=== PATIENT | male | born 1930 | race Caucasian/White ===

== ENCOUNTER → 2017-09-14 | Outpatient (CLI) | payer MEDICARE | END | disposition home or self-care (01) | LOC: PMGWOUND 12:04 | DX: E11.621 Type 2 diabetes mellitus with foot ulcer (principal); L97.524 Non-pressure chronic ulcer of other part of left foot with necrosis of bone; E11.52 Type 2 diabetes mellitus with diabetic peripheral angiopathy with gangrene; I96 Gangrene, not elsewhere classified; E11.22 Type 2 diabetes mellitus with diabetic chronic kidney disease; I13.0 Hypertensive heart and chronic kidney disease with heart failure and stage 1 through stage 4 chronic kidney disease, or unspecified chronic kidney disease; N18.3 Chronic kidney disease, stage 3 (moderate); I50.9 Heart failure, unspecified; E78.5 Hyperlipidemia, unspecified; E03.9 Hypothyroidism, unspecified | CPT/HCPCS: 99214 ==

== ENCOUNTER → 2017-10-20 | Outpatient (CLI) | payer MEDICARE | END | disposition home or self-care (01) | LOC: ECHO 10:03 | DX: J90 Pleural effusion, not elsewhere classified (principal); I34.0 Nonrheumatic mitral (valve) insufficiency; I13.0 Hypertensive heart and chronic kidney disease with heart failure and stage 1 through stage 4 chronic kidney disease, or unspecified chronic kidney disease; E11.22 Type 2 diabetes mellitus with diabetic chronic kidney disease; I50.9 Heart failure, unspecified; N18.3 Chronic kidney disease, stage 3 (moderate); E78.5 Hyperlipidemia, unspecified; E03.9 Hypothyroidism, unspecified; I25.10 Atherosclerotic heart disease of native coronary artery without angina pectoris | CPT/HCPCS: 93306 ==

== ENCOUNTER 2017-11-23 10:00 | Inpatient (IN) | payer MEDICARE ==
[~2017-11-23] VITALS: Ht 165.1 cm; Wt 64.4 kg
[~2017-11-23 10:00] MED LIST: ASPI325T8 PO; CARV25TA2 PO; LISI2.5T PO; LOSA25TA5 PO; METF500T9 PO; MULT-658 PO
[2017-11-23] MEDS ORDERED: IV NORMAL SALINE 1000ML BAG 1,000 ML IV SCH ×2 (10:16→11:38)
--- NOTE | 2017-11-23 10:25 | PHYS DOC ---
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 According to EMS the patient was found on the floor today by his family. It is unclear have wound up on the floor. The patient is normally alert and oriented but appears confused at this time. He denies any pain. He is noted to be hypotensive upon arrival. He denies any headache and there is no obvious signs of head trauma. 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 Available notes from the patient's recent hospitalization of been reviewed. There are no alleviating or exacerbating factors to his symptoms. History is limited by the patient's confusion, although he is oriented to person and place. Review of Systems Review of Systems Constitutional: Denies fever or chills [] Eyes: Denies change in visual acuity, redness, or eye pain [] HENT: Denies nasal congestion or sore throat [] Respiratory: Denies cough or shortness of breath [] Cardiovascular: Denies chest pain or shortness of breath. [] GI: Denies abdominal pain, nausea, vomiting, bloody stools or diarrhea [] : Denies dysuria or hematuria [] Musculoskeletal: Denies back pain or joint pain [] Integument: Denies rash or skin lesions [] Neurologic: Denies headache, focal weakness or sensory changes [] Endocrine: Denies polyuria or polydipsia [] All other systems were reviewed and found to be within normal limits, except as documented in this note. Current Medications Current Medications Current Medications Medications (Trade) Dose Ordered Sig/Christiano Start Time Stop Time Status Last Admin Dose Admin Ceftriaxone Sodium 50 ml @ 100 mls/hr 1X ONCE 11/23/17 11:45 11/23/17 12:14 UNV Piperacillin Sod/ Tazobactam Sod 3.375 gm/Sodium Chloride 50 ml @ 100 mls/hr 1X ONCE 11/23/17 12:00 11/23/17 12:29 11/23/17 12:04 100 MLS/HR Sodium Chloride 1,000 ml @ 2,040 mls/hr Q30M 11/23/17 11:38 11/23/17 12:38 11/23/17 11:48 2,040 MLS/HR Vancomycin HCl 250 ml @ 250 mls/hr 1X ONCE 11/23/17 11:45 11/23/17 12:44 Allergies Allergies Allergies Coded Allergies Type Severity Reaction Last Updated Verified No Known Drug Allergies 10/04/17 No Physical Exam Physical Exam PHYSICAL EXAM: CONSTITUTIONAL: Well developed, well nourished HEAD: normocephalic, atraumatic EENT: PERRL, EOMI. Conjunctivae normal color, sclerae non-icteric; moist mucous membranes. NECK: Supple, non-tender; no meningismus. LUNGS: Lungs CTA, breathing even and unlabored. Normal air movement. HEART: Regular rate and rhythm, no murmur CHEST: No deformity; non-tender ABDOMEN: The abdomen is soft, and non-tender, no masses or bruits. EXTREM: There is a skin tear on the left elbow without any bony tenderness to palpation. There is a wound VAC on the left foot, with amputation of the left great toe. There are weak but palpable posterior tibial pulses. The extremities demonstrate Normal ROM; no deformity, no calf tenderness. There is no pedal edema. SKIN: No rash; no diaphoresis NEURO: Alert; normal speech, somewhat impaired cognition; CN's grossly intact; strength grossly intact without focal deficit. BACK: No CVA TTP. Current Patient Data Vital Signs Vital Signs Date Time Temp Pulse Resp B/P (MAP) Pulse Ox O2 Delivery O2 Flow Rate FiO2 11/23/17 10:00 98.9 90 20 89/46 (60) 96 Room Air 98.9 Lab Values Laboratory Tests Test 11/23/17 10:25 11/23/17 10:43 White Blood Count 6.8 x10^3/uL (4.0-11.0) Red Blood Count 3.30 x10^6/uL (4.30-5.70) L Hemoglobin 10.1 g/dL (13.0-17.5) L Hematocrit 29.7 % (39.0-53.0) L Mean Corpuscular Volume 90 fL (79-100) Mean Corpuscular Hemoglobin 31 pg (25-35) Mean Corpuscular Hemoglobin Concent 34 g/dL (31-37) Red Cell Distribution Width 17.3 % (11.5-14.5) H Platelet Count 173 x10^3/uL (140-400) Neutrophils (%) (Auto) 74 % (31-73) H Lymphocytes (%) (Auto) 14 % (24-48) L Monocytes (%) (Auto) 12 % (0-9) H Eosinophils (%) (Auto) 0 % (0-3) Basophils (%) (Auto) 0 % (0-3) Neutrophils # (Auto) 5.0 x10^3uL (1.8-7.7) Lymphocytes # (Auto) 1.0 x10^3/uL (1.0-4.8) Monocytes # (Auto) 0.8 x10^3/uL (0.0-1.1) Eosinophils # (Auto) 0.0 x10^3/uL (0.0-0.7) Basophils # (Auto) 0.0 x10^3/uL (0.0-0.2) Prothrombin Time 14.3 SEC (11.7-14.0) H Prothrombin Time INR 1.2 (0.8-1.1) H Sodium Level 131 mmol/L (136-145) L Potassium Level 4.7 mmol/L (3.5-5.1) Chloride Level 99 mmol/L (98-107) Carbon Dioxide Level 25 mmol/L (21-32) Anion Gap 7 (6-14) Blood Urea Nitrogen 54 mg/dL (8-26) H Creatinine 2.8 mg/dL (0.7-1.3) H Estimated GFR (Cockcroft-Gault) 21.5 BUN/Creatinine Ratio 19 (6-20) Glucose Level 231 mg/dL (70-99) H Lactic Acid Level 3.0 mmol/L (0.4-2.0) H Calcium Level 8.9 mg/dL (8.5-10.1) Magnesium Level 1.8 mg/dL (1.8-2.4) Total Bilirubin 0.7 mg/dL (0.2-1.0) Aspartate Amino Transferase (AST) 38 U/L (15-37) H Alanine Aminotransferase (ALT) 30 U/L (16-63) Alkaline Phosphatase 125 U/L (46-116) H Creatine Kinase 57 U/L (39-308) Creatine Kinase MB (Mass) 0.5 ng/mL (0.0-3.6) Creatine Kinase MB Relative Index % (0-4) Troponin I Quantitative 0.035 ng/mL (0.000-0.055) QP-Zrf-C-Type Natriuretic Peptide 9580 pg/mL (0-449) H Total Protein 6.2 g/dL (6.4-8.2) L Albumin 3.0 g/dL (3.4-5.0) L Albumin/Globulin Ratio 0.9 (1.0-1.7) L Lipase 292 U/L (73-393) Thyroid Stimulating Hormone (TSH) 0.255 uIU/mL (0.358-3.74) L Urine Collection Type Unknown Urine Color Cathryn Urine Clarity Cloudy Urine pH 5.0 Urine Specific [place] 1.025 Urine Protein Negative mg/dL (NEG-TRACE) Urine Glucose (UA) Negative mg/dL (NEG) Urine Ketones (Stick) Trace mg/dL (NEG) Urine Blood Negative (NEG) Urine Nitrite Negative (NEG) Urine Bilirubin Small (NEG) Urine Urobilinogen Dipstick 1.0 mg/dL (0.2 mg/dL) Urine Leukocyte Esterase Small (NEG) Urine RBC 1-2 /HPF (0-2) Urine WBC 5-10 /HPF (0-4) Urine Squamous Epithelial Cells Occ /LPF Urine Amorphous Sediment Present /HPF Urine Bacteria Few /HPF (0-FEW) Urine Mucus Marked /LPF Laboratory Tests 11/23/17 10:25 Laboratory Tests 11/23/17 10:25 EKG EKG [Ventricular paced rhythm at a rate of 76 bpm with left axis deviation and QRS widening without secondary acute ischemic ST/T changes.] Radiology/Procedures Radiology/Procedures [PROCEDURE: PORTABLE CHEST 1V PORTABLE CHEST 1V dated 11/23/2017 10:30 AM. Comparison: 10/23/2017 Clinical Indication: WEAKNESS, HYPOTENSION. Findings: Single upright portable exam performed. Heart and mediastinal contours are stable. 3 lead left subclavian pacer/AICD, unchanged. There is patchy perihilar airspace disease, new from prior study. No pleural effusion or pneumothorax. Impression: Patchy bilateral perihilar airspace disease, nonspecific. This could be related to early edema or pneumonia. ] PROCEDURE: CT HEAD WO CONTRAST CT HEAD WO CONTRAST History: Altered mental status, fall Comparison: None. Technique: Noncontrast CT imaging was performed of the head. Exposure: One or more of the following individualized dose reduction techniques were utilized for this examination: 1. Automated exposure control 2. Adjustment of the mA and/or kV according to patient size 3. Use of iterative reconstruction technique. Findings: No acute extra-axial or parenchymal hemorrhage is identified. There is no significant intra-axial mass effect, midline shift, or extra-axial fluid collection. The whitley-white differentiation of the major vascular territories is preserved. Ventricular size is within normal limits. There is [id number] generalized supratentorial atrophy. The mastoid air cells and the visualized paranasal sinuses are aerated. No acute calvarial abnormality is identified. There is atherosclerotic calcification of the carotid siphons bilaterally. nce Impression: 1. No acute intracranial abnormality is identified. 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 Course & Med Decision Making Course & Med Decision Making Pertinent Labs and Imaging studies reviewed. (See chart for details) [12:10 PM: The patient's condition remained stable. His blood pressure has improved to the 120s after IV hydration. I discussed the case with Dr. Pritchard, the patient's PCP, who will admit the patient for further evaluation. Given the patient's elevated lactic acid, and possible urine infection he might meet sepsis criteria with his hypertension. He'll be given IV fluids and antibiotics empirically. His blood pressure has responded to IV fluids.] CRITICAL CARE TIME: 45 Minutes, excluding any procedures and care of other patients. Dragon Disclaimer Dragon Disclaimer This electronic medical record was generated, in whole or in part, using a voice recognition dictation system. Departure Departure Impression: Primary Impression: Acute renal failure Additional Impressions: Dehydration UTI (urinary tract infection) Hypotension Weakness Altered mental status Disposition: 09 ADMITTED INPATIENT Admitting Physician: Susannah Pritchard Condition: IMPROVED Referrals: Neri PRITCHARD MD (PCP) Problem Qualifiers GERDA DENG MD Nov 23, 2017 10:25
--- NOTE | 2017-11-23 10:31 | EKG ---
[facility] [address] [place] [address] Test Date: 2017-11-23 Test Time: 10:06:24 Pat Name: TAMICA ALEX Department: Room: Gender: M [employer] Supervisor: : [id number] Requested By: GERDA DENG Order Number: [id number] Reading MD: Dioni Hernandez MD Measurements Intervals [place] Rate: 76 P: ND: QRS: -56 QRSD: 18 T: -73 QT: 322 QTc: 365 Interpretive Statements SR V-PACED ARTIFACT Electronically Signed On 11-23-2017 11:33:03 CDT by Dioni Hernandez MD
[2017-11-23 10:33] LABS: BASO % 0 % (0-3); EOS % 0 % (0-3); HEMATOCRIT 29.7 % (39.0-53.0); HEMOGLOBIN 10.1 g/dL (13.0-17.5); LYMPH % 14 % (24-48); MEAN CORPUSCULAR HEMOGLOBIN 31 pg (25-35); MEAN CORPUSCULAR HGB CONC 34 g/dL (31-37); MEAN CORPUSCULAR VOLUME 90 fL (79-100); MONO # 0.8 x10^3/uL (0.0-1.1); MONO % 12 % (0-9); NEUT % 74 % (31-73); PLATELET COUNT 173 x10^3/uL (140-400); RED CELL DISTRIBUTION WIDTH 17.3 % (11.5-14.5); WHITE BLOOD COUNT 6.8 x10^3/uL (4.0-11.0)
--- NOTE | 2017-11-23 10:41 | RAD ---
PORTABLE CHEST 1V dated 11/23/2017 10:30 AM. Comparison: 10/23/2017 Clinical Indication: WEAKNESS, HYPOTENSION. Findings: Single upright portable exam performed. Heart and mediastinal contours are stable. 3 lead left subclavian pacer/AICD, unchanged. There is patchy perihilar airspace disease, new from prior study. No pleural effusion or pneumothorax. Impression: Patchy bilateral perihilar airspace disease, nonspecific. This could be related to early edema or pneumonia. Electronically signed by: Rajiv Patel MD (11/23/2017 10:38 AM) [id number]
[2017-11-23 10:51] LABS: CALCIUM 8.9 mg/dL (8.5-10.1); CREATININE 2.8 mg/dL (0.7-1.3); GFR 21.5; POTASSIUM 4.7 mmol/L (3.5-5.1); PROTHROMBIN TIME PATIENT 14.3 SEC (11.7-14.0)
[2017-11-23 10:55] LABS: BILIRUBIN,URINE SMALL (NEG); CLARITY,URINE CLOUDY; COLOR,URINE AMBER; NITRITE,URINE NEGATIVE (NEG); PROTEIN,URINE NEGATIVE (NEG-TRACE)
[2017-11-23 11:03] LABS: CREATINE KINASE 57 U/L (39-308)
[2017-11-23 11:04] LABS: ALBUMIN/GLOBULIN RATIO 0.9 (1.0-1.7); MAGNESIUM 1.8 mg/dL (1.8-2.4); TOTAL BILIRUBIN 0.7 mg/dL (0.2-1.0); TOTAL PROTEIN 6.2 g/dL (6.4-8.2)
[2017-11-23 11:17] LABS: AMORPHOUS SEDIMENT,UR PRESENT /HPF; BACTERIA,URINE FEW /HPF (0-FEW); SQUAMOUS EPITHELIAL CELL,UR OCC /LPF
[2017-11-23] MEDS ORDERED: VANCOMYCIN 1GM IVPB FOR OMNI 250 ML IV ONE (11:45)
[2017-11-23] MEDS ORDERED: PIPERACILLIN/TAZOBACTAM 3.375 GM in IV NORMAL SALINE 50ML 50 ML IV ONE (12:00)
--- NOTE | 2017-11-23 12:10 | RAD ---
CT HEAD WO CONTRAST History: Altered mental status, fall Comparison: None. Technique: Noncontrast CT imaging was performed of the head. Exposure: One or more of the following individualized dose reduction techniques were utilized for this examination: 1. Automated exposure control 2. Adjustment of the mA and/or kV according to patient size 3. Use of iterative reconstruction technique. Findings: No acute extra-axial or parenchymal hemorrhage is identified. There is no significant intra-axial mass effect, midline shift, or extra-axial fluid collection. The whitley-white differentiation of the major vascular territories is preserved. Ventricular size is within normal limits. There is [id number] generalized supratentorial atrophy. The mastoid air cells and the visualized paranasal sinuses are aerated. No acute calvarial abnormality is identified. There is atherosclerotic calcification of the carotid siphons bilaterally. nce Impression: 1. No acute intracranial abnormality is identified. 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 Electronically signed by: Cricket Jalloh MD (11/23/2017 12:07 PM) [id number]
[2017-11-23 14:17] VITALS: BP 140/54
[2017-11-23 19:19] VITALS: BP 131/49
[2017-11-23] MEDS ORDERED: ASPI-630 PO (20:08)
[2017-11-23] MEDS ORDERED: LISI-334 PO (20:08)
[2017-11-23] MEDS ORDERED: GLIM4TAB2 PO (20:08)
[2017-11-23] MEDS ORDERED: TAMS0.4C2 PO (20:08)
[2017-11-23] MEDS ORDERED: FURO40TA4 PO (20:08)
[2017-11-23] MEDS ORDERED: ACET500T68 PO (20:08)
[2017-11-23 23:52] VITALS: BP 97/31
[2017-11-24 03:13] VITALS: BP_SYST 11
[2017-11-24 07:00] VITALS: BP 185/71
[2017-11-24] MEDS ORDERED: DEXTROSE 50% 25 GM / 50ML DISP.SYRIN. IV ONE ×2 (08:30→08:45)
[2017-11-24 11:00] VITALS: BP 158/67
[2017-11-24 16:39] VITALS: BP 178/62
[2017-11-24] MEDS: ACETAMINOPHEN 500 MG TABLET PO SCH (16:41)
[2017-11-24] MEDS: CARVEDILOL 12.5 MG TABLET. PO SCH (16:41)
--- NOTE | 2017-11-24 16:43 | PDOC1 ---
History and Physical Date of Admission Date of Admission 11/23/17 Identification/Chief Complaint Chief Complaint unconscious at home Source Source: Chart review, Patient History of Present Illness History of Present Illness He was released Wednesday from extended stay at [facility] for wound care , HBO, wound vac after having an amputation of his left 1st toe and distal MT but yesterday morning he was down on the floor and unresponsive, EMS summoned and sugar was 200, BP in the 80s systolic. Eval in ER suggeested ARF and sepsis and admitted with sepsis protocol. He became hypoglycemic this am with sugar of 30 despite not being placed back on his diabetes meds. He has not been eating well since admission though and was on a sulfonylurea SQUAD BOSS. He is now alert and oriented and at his baseline Past Medical History Cardiovascular: CAD, CHF, HTN, Hyperlipidemia Pulmonary: COPD Past Surgical History Past Surgical History: Pacemaker, Hernia Repair Family History Family History: Coronary Artery Disease, Hypertension Social History ALCOHOL: none Drugs: None Current Problem List Problem List Problems Medical Problems: (1) Acute renal failure Status: Acute (2) Altered mental status Status: Acute (3) Dehydration Status: Acute (4) Hypotension Status: Acute (5) UTI (urinary tract infection) Status: Acute (6) Weakness Status: Acute Current Medications Current Medications Current Medications Medications (Trade) Dose Ordered Sig/Christiano Start Time Stop Time Status Last Admin Dose Admin Acetaminophen (Tylenol) 1,000 mg Q6HRS 11/24/17 18:00 Aspirin (Children'S Aspirin) 81 mg DAILY 11/25/17 09:00 Carvedilol (Coreg) 25 mg BIDWMEALS 11/24/17 17:00 Ceftriaxone Sodium 50 ml @ 100 mls/hr 1X ONCE 11/23/17 11:45 11/23/17 12:14 UNV Dextrose (Dextrose 50%-Water Syringe) 25 gm 1X ONCE 11/24/17 08:45 11/24/17 08:50 DC 11/24/17 08:58 25 GM Losartan Potassium (Cozaar) 25 mg DAILY 11/25/17 09:00 Multivitamins (Thera M Plus) 1 tab DAILY 11/25/17 09:00 Piperacillin Sod/ Tazobactam Sod 2.25 gm/Sodium Chloride 50 ml @ 100 mls/hr Q8HRS 11/24/17 17:00 Piperacillin Sod/ Tazobactam Sod 3.375 gm/Sodium Chloride 50 ml @ 100 mls/hr 1X ONCE 11/23/17 12:00 11/23/17 12:29 DC 11/23/17 12:04 100 MLS/HR Sodium Chloride 1,000 ml @ 2,040 mls/hr Q30M 11/23/17 11:38 11/23/17 12:38 DC 11/23/17 11:48 2,040 MLS/HR Tamsulosin HCl (Flomax) 0.8 mg HS 11/24/17 21:00 Vancomycin HCl 250 ml @ 250 mls/hr 1X ONCE 11/23/17 11:45 11/23/17 12:44 Cancel Allergies Allergies Allergies Coded Allergies Type Severity Reaction Last Updated Verified No Known Drug Allergies 10/04/17 No ROS Review of System CONSTITUTIONAL: No fever or chills EYES: No recent changes SKIN: bruising CARDIOVASCULAR: No chest pain, syncope, palpitations, or edema RESPIRATORY: No SOB or cough GASTROINTESTINAL: No nausea, vomiting or abdominal pain NEUROLOGICAL: No headaches or weakness ENDOCRINE: No cold or heat intolerance GENITOURINARY: Has urinary retention, perea was discontinued last week prior to discharge MUSCULOSKELETAL: No back pain or joint pain LYMPHATICS: No enlarged lymph nodes PSYCHIATRIC: No anxiety or depression Physical Exam Physical Exam GEN.: No apparent distress. Alert and oriented. HEENT: Head is normocephalic, atraumatic NECK: Supple. LUNGS: Clear to auscultation. HEART: RRR, S1, S2 present. Peripheral pulses intact ABDOMEN: Soft, nontender. Positive bowel sounds. EXTREMITIES: Without any cyanosis. NEUROLOGIC: Normal speech, normal tone PSYCHIATRIC: Normal affect, normal mood. SKIN: wound vac on foot Vitals Vitals Vital Signs Date Time Temp Pulse Resp B/P (MAP) Pulse Ox O2 Delivery O2 Flow Rate FiO2 11/24/17 11:00 97.9 68 18 158/67 (97) 97 Room Air 97.9 Labs Labs Laboratory Tests Test 11/23/17 10:25 11/23/17 10:43 11/24/17 08:29 11/24/17 08:40 White Blood Count 6.8 x10^3/uL (4.0-11.0) Red Blood Count 3.30 x10^6/uL (4.30-5.70) Hemoglobin 10.1 g/dL (13.0-17.5) Hematocrit 29.7 % (39.0-53.0) Mean Corpuscular Volume 90 fL (79-100) Mean Corpuscular Hemoglobin 31 pg (25-35) Mean Corpuscular Hemoglobin Concent 34 g/dL (31-37) Red Cell Distribution Width 17.3 % (11.5-14.5) Platelet Count 173 x10^3/uL (140-400) Neutrophils (%) (Auto) 74 % (31-73) Lymphocytes (%) (Auto) 14 % (24-48) Monocytes (%) (Auto) 12 % (0-9) Eosinophils (%) (Auto) 0 % (0-3) Basophils (%) (Auto) 0 % (0-3) Neutrophils # (Auto) 5.0 x10^3uL (1.8-7.7) Lymphocytes # (Auto) 1.0 x10^3/uL (1.0-4.8) Monocytes # (Auto) 0.8 x10^3/uL (0.0-1.1) Eosinophils # (Auto) 0.0 x10^3/uL (0.0-0.7) Basophils # (Auto) 0.0 x10^3/uL (0.0-0.2) Prothrombin Time 14.3 SEC (11.7-14.0) Prothromb Time International Ratio 1.2 (0.8-1.1) Sodium Level 131 mmol/L (136-145) Potassium Level 4.7 mmol/L (3.5-5.1) Chloride Level 99 mmol/L (98-107) Carbon Dioxide Level 25 mmol/L (21-32) Anion Gap 7 (6-14) Blood Urea Nitrogen 54 mg/dL (8-26) Creatinine 2.8 mg/dL (0.7-1.3) Estimated GFR (Cockcroft-Gault) 21.5 BUN/Creatinine Ratio 19 (6-20) Glucose Level 231 mg/dL (70-99) Lactic Acid Level 3.0 mmol/L (0.4-2.0) Calcium Level 8.9 mg/dL (8.5-10.1) Magnesium Level 1.8 mg/dL (1.8-2.4) Total Bilirubin 0.7 mg/dL (0.2-1.0) Aspartate Amino Transf (AST/SGOT) 38 U/L (15-37) Alanine Aminotransferase (ALT/SGPT) 30 U/L (16-63) Alkaline Phosphatase 125 U/L (46-116) Creatine Kinase 57 U/L (39-308) Creatine Kinase MB (Mass) 0.5 ng/mL (0.0-3.6) Creatine Kinase MB Relative Index % (0-4) Troponin I Quantitative 0.035 ng/mL (0.000-0.055) LD-Hvh-Y-Type Natriuretic Peptide 9580 pg/mL (0-449) Total Protein 6.2 g/dL (6.4-8.2) Albumin 3.0 g/dL (3.4-5.0) Albumin/Globulin Ratio 0.9 (1.0-1.7) Lipase 292 U/L (73-393) Thyroid Stimulating Hormone (TSH) 0.255 uIU/mL (0.358-3.74) Urine Collection Type Unknown Urine Color Cathryn Urine Clarity Cloudy Urine pH 5.0 Urine Specific [place] 1.025 Urine Protein Negative mg/dL (NEG-TRACE) Urine Glucose (UA) Negative mg/dL (NEG) Urine Ketones (Stick) Trace mg/dL (NEG) Urine Blood Negative (NEG) Urine Nitrite Negative (NEG) Urine Bilirubin Small (NEG) Urine Urobilinogen Dipstick 1.0 mg/dL (0.2 mg/dL) Urine Leukocyte Esterase Small (NEG) Urine RBC 1-2 /HPF (0-2) Urine WBC 5-10 /HPF (0-4) Urine Squamous Epithelial Cells Occ /LPF Urine Amorphous Sediment Present /HPF Urine Bacteria Few /HPF (0-FEW) Urine Mucus Marked /LPF Glucose (Fingerstick) 33 mg/dL (70-99) 138 mg/dL (70-99) Test 11/24/17 12:00 Glucose (Fingerstick) 103 mg/dL (70-99) Laboratory Tests Test 11/24/17 08:29 11/24/17 08:40 11/24/17 12:00 Glucose (Fingerstick) 33 mg/dL (70-99) 138 mg/dL (70-99) 103 mg/dL (70-99) VTE Prophylaxis Ordered VTE Prophylaxis Devices: Yes VTE Pharmacological Prophylaxi: Yes Assessment/Plan Assessment/Plan encephalopathy, likely toxic from sepsis - await urine cx and cover with antibiotics, CXR suggests pneumonia hypotension ARF hypoglycemia Type 2 diabetes PAD urinary retention Neri PRITCHARD MD Nov 24, 2017 16:43
[2017-11-24] MEDS ORDERED: VANCOMYCIN 1 GM in IV NORMAL SALINE 250ML 250 ML IV ONE (16:45)
[2017-11-24] MEDS ORDERED: ALBUTEROL SULFATE 2.5 MG/3 ML NEBU. NEB PRN (17:00)
[2017-11-24] MEDS ORDERED: PIPERACILLIN/TAZOBACTAM 2.25 GM in IV NORMAL SALINE 50ML 50 ML IV SCH (17:00)
[2017-11-24] MEDS: ENOXAPARIN 30 MG/0.3 ML SYRINGE. SQ SCH (17:00)
[2017-11-24] MEDS ORDERED: VANCOMYCIN 1.5 GM in IV NORMAL SALINE 500ML BAG 500 ML IV ONE (17:30)
[2017-11-24 19:54] VITALS: BP 136/43
[2017-11-24] MEDS: LACTOBACILLUS RHAMNOSUS GG 1 CAPSULE. PO SCH (20:14)
[2017-11-24] MEDS: TAMSULOSIN 0.4 MG CAP.ER.24H. PO SCH (20:14)
[2017-11-24 23:21] VITALS: BP 144/53
[2017-11-25] MEDS: PIPERACILLIN/TAZOBACTAM 2.25 GM in IV NORMAL SALINE 50ML 50 ML IV SCH ×4 (00:17→16:17)
[2017-11-25] MEDS: ACETAMINOPHEN 500 MG TABLET PO SCH ×4 (00:18→16:16)
[2017-11-25 02:57] VITALS: BP 149/59
[2017-11-25 04:43] LABS: BASO % 0 % (0-3); EOS # 0.1 x10^3/uL (0.0-0.7); EOS % 2 % (0-3); HEMATOCRIT 25.1 % (39.0-53.0); HEMOGLOBIN 8.6 g/dL (13.0-17.5); LYMPH % 22 % (24-48); MEAN CORPUSCULAR HEMOGLOBIN 31 pg (25-35); MEAN CORPUSCULAR HGB CONC 34 g/dL (31-37); MEAN CORPUSCULAR VOLUME 89 fL (79-100); MONO # 0.4 x10^3/uL (0.0-1.1); MONO % 9 % (0-9); NEUT # 3.1 x10^3uL (1.8-7.7); NEUT % 67 % (31-73); PLATELET COUNT 141 x10^3/uL (140-400); RED BLOOD COUNT 2.81 x10^6/uL (4.30-5.70); RED CELL DISTRIBUTION WIDTH 17.5 % (11.5-14.5); WHITE BLOOD COUNT 4.6 x10^3/uL (4.0-11.0)
[2017-11-25 05:01] LABS: ALBUMIN 2.2 g/dL (3.4-5.0); CALCIUM 8.2 mg/dL (8.5-10.1); CREATININE 1.7 mg/dL (0.7-1.3); GFR 38.3; POTASSIUM 3.8 mmol/L (3.5-5.1)
[2017-11-25 05:36] LABS: ALBUMIN/GLOBULIN RATIO 0.7 (1.0-1.7); TOTAL BILIRUBIN 0.6 mg/dL (0.2-1.0); TOTAL PROTEIN 5.3 g/dL (6.4-8.2)
[2017-11-25 07:00] VITALS: BP 161/48
[2017-11-25] MEDS: LOSARTAN POTASSIUM 25 MG TABLET. PO SCH (08:35)
[2017-11-25] MEDS: LACTOBACILLUS RHAMNOSUS GG 1 CAPSULE. PO SCH ×2 (08:35→21:01)
[2017-11-25] MEDS: MULTIVITAMIN with MINERAL TABLET. PO SCH (08:35)
[2017-11-25] MEDS: ASPIRIN CHEWABLE 81 MG TABLET. PO SCH (08:35)
[2017-11-25] MEDS: CARVEDILOL 12.5 MG TABLET. PO SCH ×2 (08:35→16:16)
--- NOTE | 2017-11-25 08:38 | RAD ---
Portable chest, 11/25/2017: HISTORY: Follow-up pneumonia Comparison is made to the study from 11/23/2017. A left-sided transvenous pacing device is again noted with 3 leads extending into the heart. The heart size is normal. There is mild residual pulmonary infiltrate, primarily in the right parahilar region. No new pulmonary abnormality is seen. No significant residual pleural fluid is evident. No new abnormality is detected. IMPRESSION: 1. Mild residual right perihilar infiltrate compatible with pneumonia versus pulmonary edema. 2. No new abnormality is detected. Electronically signed by: Darin Vann MD (11/25/2017 8:35 AM) [facility]
[2017-11-25 11:00] VITALS: BP 151/51
[2017-11-25] MEDS ORDERED: DEXTROSE 50% 25 GM / 50ML DISP.SYRIN. IV PRN (12:45)
--- NOTE | 2017-11-25 12:50 | PDOC ---
PROGRESS NOTES Subjective has a cough but feels ok, up to commode, no chest pain, no GI symptoms, eating better Objective Afebrile General: A&O, NAD Heart: RRR Lungs: loose cough, no wheezing or rhonchi Abd: soft non tender Ext: no edema, wound vac on and fracture shoe on left foot WBC: 4.6 Hgb: 8.6 Vital Signs Vital Signs Date Time Temp Pulse Resp B/P (MAP) Pulse Ox O2 Delivery O2 Flow Rate FiO2 11/25/17 11:00 98.0 59 18 151/51 (84) 99 Room Air 98.0 I & O Intake and Output 11/25/17 07:00 Intake Total 400 ml Output Total 200 ml Balance 200 ml Intake Oral 400 ml Output Urine Total 200 ml # Voids 4 # Bowel Movements 1 Assessment and Plan encephalopathy, likely toxic from sepsis - resolved, await urine cx and cover with antibiotics, CXR suggests pneumonia hypotension - resolved ARF - improving, recheck CMP tomorrow hypoglycemia Type 2 diabetes - add SSI, continue to hold metformin due to renal function and glimeperide due to hypoglycemia yesterday morning PAD - continue wound vac, wound care urinary retention - perea, tamsulosin anemia - iron deficiency, resume iron supplement Neri PRITCHARD MD Nov 25, 2017 12:50
[2017-11-25] MEDS: FERROUS SULFATE 325 MG TABLET. PO SCH (13:25)
[2017-11-25 15:00] VITALS: BP 169/64
[2017-11-25] MEDS: ENOXAPARIN 30 MG/0.3 ML SYRINGE. SQ SCH (16:16)
[2017-11-25] MEDS: INSULIN LISPRO 300 UNITS/3 ML INSULN.PEN. SQ SCH (17:37)
[2017-11-25 19:16] VITALS: BP 164/71
[2017-11-25] MEDS: TAMSULOSIN 0.4 MG CAP.ER.24H. PO SCH (21:01)
[2017-11-25 23:06] VITALS: BP 173/63
[2017-11-26] MEDS: PIPERACILLIN/TAZOBACTAM 2.25 GM in IV NORMAL SALINE 50ML 50 ML IV SCH ×4 (00:56→18:16)
[2017-11-26] MEDS: ACETAMINOPHEN 500 MG TABLET PO SCH ×4 (00:56→18:15)
[2017-11-26 03:57] VITALS: BP 188/84
[2017-11-26 06:59] LABS: BASO % 1 % (0-3); EOS # 0.1 x10^3/uL (0.0-0.7); EOS % 4 % (0-3); HEMATOCRIT 25.8 % (39.0-53.0); HEMOGLOBIN 8.7 g/dL (13.0-17.5); LYMPH % 25 % (24-48); MEAN CORPUSCULAR HEMOGLOBIN 30 pg (25-35); MEAN CORPUSCULAR HGB CONC 34 g/dL (31-37); MEAN CORPUSCULAR VOLUME 89 fL (79-100); MONO # 0.4 x10^3/uL (0.0-1.1); MONO % 9 % (0-9); NEUT # 2.5 x10^3uL (1.8-7.7); NEUT % 62 % (31-73); PLATELET COUNT 165 x10^3/uL (140-400); RED BLOOD COUNT 2.89 x10^6/uL (4.30-5.70); RED CELL DISTRIBUTION WIDTH 17.4 % (11.5-14.5)
[2017-11-26 07:00] VITALS: BP 158/55
[2017-11-26 07:27] LABS: ALBUMIN 2.2 g/dL (3.4-5.0); ALBUMIN/GLOBULIN RATIO 0.7 (1.0-1.7); CALCIUM 8.3 mg/dL (8.5-10.1); CREATININE 1.5 mg/dL (0.7-1.3); TOTAL PROTEIN 5.3 g/dL (6.4-8.2)
[2017-11-26 07:28] LABS: GFR 44.3; POTASSIUM 4.2 mmol/L (3.5-5.1); TOTAL BILIRUBIN 0.7 mg/dL (0.2-1.0)
[2017-11-26] MEDS: INSULIN LISPRO 300 UNITS/3 ML INSULN.PEN. SQ SCH ×3 (08:00→17:00)
[2017-11-26] MEDS: ASPIRIN CHEWABLE 81 MG TABLET. PO SCH (09:51)
[2017-11-26] MEDS: CARVEDILOL 12.5 MG TABLET. PO SCH ×2 (09:51→18:16)
[2017-11-26] MEDS: MULTIVITAMIN with MINERAL TABLET. PO SCH (09:52)
[2017-11-26] MEDS: LOSARTAN POTASSIUM 25 MG TABLET. PO SCH (09:52)
[2017-11-26] MEDS: LACTOBACILLUS RHAMNOSUS GG 1 CAPSULE. PO SCH ×2 (09:52→21:16)
[2017-11-26] MEDS: FERROUS SULFATE 325 MG TABLET. PO SCH (09:52)
[2017-11-26 11:00] VITALS: BP 175/64
[2017-11-26 15:00] VITALS: BP 172/73
--- NOTE | 2017-11-26 17:51 | PDOC ---
PROGRESS NOTES Subjective He is feeling stronger and denies confusion, appetite good, no chest pain, no SOA, no GI pain Objective Afebrile General: NAD, A&O Heart: RRR Lungs: CTA, coughs with deep breath Abd: soft and non tender Ext: no edema, good pulses, fx shoe on left foot, wound vac off WBC: 4 Hgb: 8.7 K+: 4.2 Creat: 1.5 Vital Signs Vital Signs Date Time Temp Pulse Resp B/P (MAP) Pulse Ox O2 Delivery O2 Flow Rate FiO2 11/26/17 15:00 96.4 60 20 172/73 (106) 97 Room Air 96.4 I & O Intake and Output 11/26/17 07:00 Intake Total 800 ml Balance 800 ml Intake Oral 800 ml # Voids 8 Assessment and Plan Problems Medical Problems: (1) Acute renal failure Status: Acute (2) Altered mental status Status: Acute (3) Dehydration Status: Acute (4) Hypotension Status: Acute (5) UTI (urinary tract infection) Status: Acute (6) Weakness Status: Acute encephalopathy, likely toxic from sepsis - resolved, await urine cx and cover with antibiotics, CXR suggests pneumonia hypotension - resolved ARF -resolved hypoglycemia - resolved Type 2 diabetes - add SSI, off metformin due to renal function and glimeperide due to hypoglycemia yesterday morning PAD - off wound vac per wound care urinary retention - DC perea, bladder trial, cont tamsulosin anemia - iron deficiency, resume iron supplement Neri PRITCHARD MD Nov 26, 2017 17:51
[2017-11-26] MEDS: ENOXAPARIN 30 MG/0.3 ML SYRINGE. SQ SCH (18:15)
[2017-11-26 19:10] VITALS: BP 167/62
[2017-11-26] MEDS: TAMSULOSIN 0.4 MG CAP.ER.24H. PO SCH (21:16)
[2017-11-26 23:10] VITALS: BP 162/61
[2017-11-27] MEDS: PIPERACILLIN/TAZOBACTAM 2.25 GM in IV NORMAL SALINE 50ML 50 ML IV SCH ×3 (00:03→12:35)
[2017-11-27] MEDS: ACETAMINOPHEN 500 MG TABLET PO SCH ×3 (00:04→12:00)
[2017-11-27 03:10] VITALS: BP 177/77
[2017-11-27 07:50] VITALS: BP 173/71
[2017-11-27] MEDS: INSULIN LISPRO 300 UNITS/3 ML INSULN.PEN. SQ SCH ×3 (08:00→17:14)
[2017-11-27] MEDS: FERROUS SULFATE 325 MG TABLET. PO SCH (09:14)
[2017-11-27] MEDS: MULTIVITAMIN with MINERAL TABLET. PO SCH (09:15)
[2017-11-27] MEDS: LACTOBACILLUS RHAMNOSUS GG 1 CAPSULE. PO SCH ×2 (09:15→20:13)
[2017-11-27] MEDS: CARVEDILOL 12.5 MG TABLET. PO SCH ×2 (09:16→17:13)
[2017-11-27] MEDS: LOSARTAN POTASSIUM 25 MG TABLET. PO SCH (09:16)
[2017-11-27] MEDS: ASPIRIN CHEWABLE 81 MG TABLET. PO SCH (09:16)
[2017-11-27 11:27] VITALS: BP 164/66
[2017-11-27] MEDS ORDERED: ACETAMINOPHEN 500 MG TABLET PO PRN ×2 (14:30)
--- NOTE | 2017-11-27 14:45 | PDOC ---
PROGRESS NOTES Subjective Psa growing on urine culture but clinically he was septic from it at admission so need to adjust abx. Feels better overall, no new symptoms Objective Afebrile General: NAD, A&O Heart: RRR Lungs: CTA, cough improved Abd: soft , non distended Ext: left foot dressing dry, no edema or redness Vital Signs Vital Signs Date Time Temp Pulse Resp B/P (MAP) Pulse Ox O2 Delivery O2 Flow Rate FiO2 11/27/17 11:27 97.9 64 18 164/66 (98) 96 Room Air 97.9 I & O Intake and Output 11/27/17 07:00 Intake Total 1030 ml Output Total 450 ml Balance 580 ml Intake Oral 980 ml IV Total 50 ml Output Urine Total 450 ml # Voids 4 Assessment and Plan encephalopathy, likely toxic from sepsis - resolved, Pseudomonas aeruginosa on urine cx, change to cefepime and levaquin, CXR suggested pneumonia hypotension - resolved ARF -resolved hypoglycemia - resolved Type 2 diabetes - add SSI, off metformin due to renal function and glimepiride due to hypoglycemia PAD - off wound vac per wound care urinary retention - DCed perea, passed bladder trial, cont tamsulosin anemia - iron deficiency, resume iron supplement Neri PRITCHARD MD Nov 27, 2017 14:45
[2017-11-27 15:13] VITALS: BP 129/60
[2017-11-27] MEDS: CEFEPIME HCL IV Push 1 GM VIAL. IVP SCH ×2 (16:15→23:00)
[2017-11-27] MEDS: ENOXAPARIN 30 MG/0.3 ML SYRINGE. SQ SCH (17:13)
[2017-11-27 19:40] VITALS: BP 136/89
[2017-11-27] MEDS: TAMSULOSIN 0.4 MG CAP.ER.24H. PO SCH (20:14)
[2017-11-27] MEDS ORDERED: CEFEPIME HCL 1 GM in IV DEXTROSE 5% 50 ML IV SCH (22:00)
[2017-11-27 23:17] VITALS: BP 122/65
[2017-11-28 03:45] VITALS: BP 175/71
[2017-11-28 04:19] LABS: BASO % 0 % (0-3); EOS # 0.1 x10^3/uL (0.0-0.7); EOS % 3 % (0-3); HEMATOCRIT 27.4 % (39.0-53.0); HEMOGLOBIN 9.4 g/dL (13.0-17.5); LYMPH # 1.4 x10^3/uL (1.0-4.8); LYMPH % 31 % (24-48); MEAN CORPUSCULAR HEMOGLOBIN 31 pg (25-35); MEAN CORPUSCULAR HGB CONC 34 g/dL (31-37); MEAN CORPUSCULAR VOLUME 89 fL (79-100); MONO # 0.5 x10^3/uL (0.0-1.1); MONO % 10 % (0-9); NEUT # 2.5 x10^3uL (1.8-7.7); NEUT % 56 % (31-73); PLATELET COUNT 167 x10^3/uL (140-400); RED BLOOD COUNT 3.08 x10^6/uL (4.30-5.70); RED CELL DISTRIBUTION WIDTH 17.4 % (11.5-14.5); WHITE BLOOD COUNT 4.4 x10^3/uL (4.0-11.0)
[2017-11-28 04:43] LABS: CALCIUM 8.3 mg/dL (8.5-10.1); CREATININE 1.4 mg/dL (0.7-1.3); GFR 47.9
[2017-11-28 07:00] VITALS: BP 154/57
[2017-11-28] MEDS: INSULIN LISPRO 300 UNITS/3 ML INSULN.PEN. SQ SCH ×3 (08:31→16:54)
[2017-11-28] MEDS: CARVEDILOL 12.5 MG TABLET. PO SCH ×2 (08:32→16:35)
[2017-11-28] MEDS: FERROUS SULFATE 325 MG TABLET. PO SCH (08:32)
[2017-11-28] MEDS: LACTOBACILLUS RHAMNOSUS GG 1 CAPSULE. PO SCH ×2 (08:33→20:53)
[2017-11-28] MEDS: ASPIRIN CHEWABLE 81 MG TABLET. PO SCH (08:33)
[2017-11-28] MEDS: LOSARTAN POTASSIUM 25 MG TABLET. PO SCH (08:33)
[2017-11-28] MEDS: MULTIVITAMIN with MINERAL TABLET. PO SCH (08:34)
[2017-11-28] MEDS: CEFEPIME HCL IV Push 1 GM VIAL. IVP SCH ×2 (08:35→20:54)
[2017-11-28 11:00] VITALS: BP 154/59
[2017-11-28 15:00] VITALS: BP 150/57
--- NOTE | 2017-11-28 15:44 | PDOC ---
PROGRESS NOTES Subjective He wants to go home but still on IV abx for Psa in urine, getting stronger, up and about more. Family working on living situation Objective Afebrile General: NAD Heart: RRR Lungs: CTA Abd: ND/NT Ext: no C/C/E, left foot dressing intact Vital Signs Vital Signs Date Time Temp Pulse Resp B/P (MAP) Pulse Ox O2 Delivery O2 Flow Rate FiO2 11/28/17 15:00 97.8 69 18 150/57 (88) 99 Room Air 97.8 I & O Intake and Output 11/28/17 07:00 Intake Total 270 ml Output Total 1750 ml Balance -1480 ml Intake Oral 200 ml IV Total 70 ml Output Urine Total 1750 ml # Bowel Movements 1 Assessment and Plan encephalopathy, toxic from sepsis - resolved, Pseudomonas aeruginosa on urine cx, change to cefepime and levaquin, CXR suggesting pneumonia, will repeat it tomorrow hypotension - resolved ARF -resolved hypoglycemia - resolved Type 2 diabetes - add SSI, resume metformin as renal function improved, off glimepiride due to hypoglycemia PAD - off wound vac per wound care urinary retention - DCed perea, passed bladder trial, cont tamsulosin anemia - iron deficiency, resume iron supplement Neri PRITCHARD MD Nov 28, 2017 15:44
[2017-11-28] MEDS: ENOXAPARIN 30 MG/0.3 ML SYRINGE. SQ SCH (16:36)
[2017-11-28 19:00] VITALS: BP 176/61
[2017-11-28] MEDS: TAMSULOSIN 0.4 MG CAP.ER.24H. PO SCH (20:53)
[2017-11-28 23:03] VITALS: BP 182/67
[2017-11-29 03:03] VITALS: BP 155/61
[2017-11-29 07:00] VITALS: BP 165/70
[2017-11-29] MEDS: FERROUS SULFATE 325 MG TABLET. PO SCH (08:00)
[2017-11-29] MEDS: LACTOBACILLUS RHAMNOSUS GG 1 CAPSULE. PO SCH ×2 (08:00→20:06)
[2017-11-29] MEDS: metFORMIN 500 MG TABLET PO SCH (08:01)
[2017-11-29] MEDS: LOSARTAN POTASSIUM 25 MG TABLET. PO SCH (08:01)
[2017-11-29] MEDS: ASPIRIN CHEWABLE 81 MG TABLET. PO SCH (08:01)
[2017-11-29] MEDS: MULTIVITAMIN with MINERAL TABLET. PO SCH (08:01)
[2017-11-29] MEDS: CEFEPIME HCL IV Push 1 GM VIAL. IVP SCH ×2 (08:02→20:19)
[2017-11-29] MEDS: CARVEDILOL 12.5 MG TABLET. PO SCH ×2 (08:02→17:12)
[2017-11-29] MEDS: INSULIN LISPRO 300 UNITS/3 ML INSULN.PEN. SQ SCH ×3 (08:09→17:16)
[2017-11-29 11:00] VITALS: BP 159/64
--- NOTE | 2017-11-29 12:29 | PDOC ---
PROGRESS NOTES Subjective CXR report pending (looks clear to me), still with some coughing, no other new symptoms, urinating well, eating but sugar elevated this am Objective Afebrile General: A&O, pleasant, NAD Heart: RRR Lungs: CTA but clears throat and has cough Abd: soft, non distended Ext: no edema, ambulating with left foot in walking shoe Vital Signs Vital Signs Date Time Temp Pulse Resp B/P (MAP) Pulse Ox O2 Delivery O2 Flow Rate FiO2 11/29/17 11:00 96.6 61 18 159/64 (95) 99 Room Air 96.6 I & O Intake and Output 11/29/17 07:00 Intake Total 1700 ml Output Total 800 ml Balance 900 ml Intake Oral 1700 ml Output Urine Total 800 ml # Voids 1 Assessment and Plan encephalopathy, toxic from sepsis - resolved, Pseudomonas aeruginosa on urine cx, change to cefepime and levaquin, CXR consistent with pneumonia, appears to have now resolved hypotension - resolved ARF -resolved hypoglycemia - resolved Type 2 diabetes - hyperglycemic this am, on SSI, resumed metformin as renal function improved, off glimepiride due to hypoglycemia at admission but may need to resume a low dose of it PAD - off wound vac per wound care urinary retention - DCed perea, passed bladder trial, cont tamsulosin anemia - iron deficiency, resumed iron supplement and improving Neri PRITCHARD MD Nov 29, 2017 12:29
--- NOTE | 2017-11-29 14:33 | RAD ---
CHEST PA LATERAL Clinical indications: HYPOTENSION COMPARISON: November 25, 2017. Findings: Small bilateral pleural effusions are evident. No acute lung infiltrate or pulmonary edema or lung mass or pneumothorax is seen. The heart size, pulmonary vasculature, mediastinum and both erich are stable. The osseous structures are intact. Impression: Small bilateral pleural effusions. Electronically signed by: Chance Brunson MD (11/29/2017 2:30 PM) [facility]
[2017-11-29 15:00] VITALS: BP 162/67
[2017-11-29] MEDS: ENOXAPARIN 30 MG/0.3 ML SYRINGE. SQ SCH (17:12)
[2017-11-29 19:58] VITALS: BP_SYST 147
[2017-11-29] MEDS: TAMSULOSIN 0.4 MG CAP.ER.24H. PO SCH (20:06)
[2017-11-29 23:19] VITALS: BP 139/54
[2017-11-30 03:54] VITALS: BP 170/54
[2017-11-30 07:00] VITALS: BP 159/56
[2017-11-30] MEDS: LOSARTAN POTASSIUM 25 MG TABLET. PO SCH (07:51)
[2017-11-30] MEDS: FERROUS SULFATE 325 MG TABLET. PO SCH (07:52)
[2017-11-30] MEDS: LACTOBACILLUS RHAMNOSUS GG 1 CAPSULE. PO SCH (07:52)
[2017-11-30] MEDS: metFORMIN 500 MG TABLET PO SCH (07:53)
[2017-11-30] MEDS: MULTIVITAMIN with MINERAL TABLET. PO SCH (07:54)
[2017-11-30] MEDS: CARVEDILOL 12.5 MG TABLET. PO SCH ×2 (07:54→17:36)
[2017-11-30] MEDS: CEFEPIME HCL IV Push 1 GM VIAL. IVP SCH (07:55)
[2017-11-30] MEDS: ASPIRIN CHEWABLE 81 MG TABLET. PO SCH (07:56)
[2017-11-30] MEDS: INSULIN LISPRO 300 UNITS/3 ML INSULN.PEN. SQ SCH ×3 (07:59→17:50)
[2017-11-30 11:00] VITALS: BP 140/72
[2017-11-30 15:00] VITALS: BP 172/64
[2017-11-30] MEDS ORDERED: FERR325T72 PO (16:42)
[2017-11-30] MEDS: ENOXAPARIN 30 MG/0.3 ML SYRINGE. SQ SCH (17:00)
[2017-11-30 17:36] VITALS: BP 172/64
--- NOTE | 2017-11-30 18:01 | PDOC3 ---
Discharge Summary [facility] Date of Admission: Nov 23, 2017 Discharge Date: Nov 30, 2017 Admitting Diagnosis acute renal failure, toxic encephalopathy from sepsis, (pneumonia, UTI) Final Diagnosis Problems Medical Problems: (1) Acute renal failure Status: Acute (2) encephalopathy Status: Acute (3) Dehydration Status: Acute (4) Hypotension Status: Acute (5) UTI (urinary tract infection) Status: Acute (6) Pneumonia Status: Acute Brief Hospital Course Mr. Martell is a 86 old who presented with: encephalopathy, toxic from sepsis - resolved, Pseudomonas aeruginosa on urine cx, change to cefepime and levaquin, CXR consistent with pneumonia, resolved clinically and radiographically hypotension - resolved ARF -resolved hypoglycemia - resolved Type 2 diabetes - hyperglycemic this am, on SSI, resumed metformin as renal function improved, off glimepiride due to hypoglycemia at admission but may need to resume a low dose of it PAD - off wound vac per wound care urinary retention - DCed [place], passed bladder trial, cont tamsulosin anemia - iron deficiency, resumed iron supplement and improving Patient History: Cancer confirmed (situation) 33 FATHER (prostate cancer ) Family history: Diabetes mellitus (situation) G8 BROTHER 32 MOTHER CONDITION AT DISCHARGE: Stable Diet diabetic Scheduled Aspirin (Aspirin), 1 TAB PO DAILY, (Reported) Carvedilol (Carvedilol), 1 TAB PO BID, (Reported) Ferrous Sulfate (Feosol), 325 MG PO DAILYWBKFT Losartan Potassium (Losartan Potassium), 25 MG PO DAILY, (Reported) Metformin Hcl (Metformin Hcl Er), 500 MG PO DAILYWBKFT, (Reported) Multivits-Min/Fa/Lycopene/Lut (Centrum Silver Tablet), 1 EACH PO DAILY, ( Reported) Tamsulosin Hcl (Tamsulosin Hcl), 2 CAP PO HS, (Reported) Discontinued Medications Acetaminophen (Acetaminophen), 2 TAB PO Q6HRS, (Reported) Aspirin (Aspirin), 1 TAB PO DAILY, (Reported) Discontinued Reason: Prescription changed Furosemide (Furosemide), 1 TAB PO DAILY, (Reported) Glimepiride (Glimepiride), 1 TAB PO DAILY, (Reported) Lisinopril (Lisinopril), 1 TAB PO DAILY, (Reported) Discontinued Reason: Prescription changed Lisinopril (Lisinopril), 1 TAB PO DAILY, (Reported) Follow Up [facility] this week, with me 1-2 weeks Neri PRITCHARD MD Nov 30, 2017 18:01
== END 2017-11-30 17:53 | disposition home or self-care (01) | DRG 871 ==
LOC: ER 10:00 → 6 SOUTH 12:30 → 5 SOUTH 11-26 08:45 → 6 SOUTH 11-26 08:55
PROVIDERS: ADMIT Family Medicine; ATTEND Family Medicine
DX: A41.9 Sepsis, unspecified organism (principal); G92 Toxic encephalopathy; J18.9 Pneumonia, unspecified organism; N17.9 Acute kidney failure, unspecified; N39.0 Urinary tract infection, site not specified; J44.0 Chronic obstructive pulmonary disease with (acute) lower respiratory infection; D50.9 Iron deficiency anemia, unspecified; E11.649 Type 2 diabetes mellitus with hypoglycemia without coma; E11.65 Type 2 diabetes mellitus with hyperglycemia; E78.5 Hyperlipidemia, unspecified; E86.0 Dehydration; E11.51 Type 2 diabetes mellitus with diabetic peripheral angiopathy without gangrene; R33.9 Retention of urine, unspecified; B96.5 Pseudomonas (aeruginosa) (mallei) (pseudomallei) as the cause of diseases classified elsewhere; I11.0 Hypertensive heart disease with heart failure; I25.10 Atherosclerotic heart disease of native coronary artery without angina pectoris; I50.9 Heart failure, unspecified; Z80.42 Family history of malignant neoplasm of prostate; Z82.49 Family history of ischemic heart disease and other diseases of the circulatory system; Z83.3 Family history of diabetes mellitus; Z89.412 Acquired absence of left great toe; Z95.0 Presence of cardiac pacemaker; Z79.82 Long term (current) use of aspirin; Z79.84 Long term (current) use of oral hypoglycemic drugs; Z79.899 Other long term (current) drug therapy
CPT/HCPCS: 36415; 51701; 70450; 71045; 71046; 80048; 80053; 81001; 82553; 82607; 82728; 82746; 82962; 83540; 83550; 83605; 83690; 83735; 83880; 84443; 84484; 85025; 85045; 85610; 87086; 87186; 93005; 96361; 96365; J0692; J1650; J1815; J1956; J2543; J3370; J7030; J7040; J7042; 97116; 97530; 97535; 99291-25

== ENCOUNTER → 2017-12-07 | Outpatient (CLI) | payer MEDICARE ==
[2017-11-30 17:36] VITALS: BP 172/64
[~2017-12-07] MED LIST changes: +ACET500T68 PO; +ASPI-630 PO; +FERR325T72 PO; +FURO40TA4 PO; +GLIM4TAB2 PO; +LISI-334 PO; +TAMS0.4C2 PO
== END | disposition home or self-care (01) ==
LOC: PMGWOUND 10:40
PROVIDERS: ATTEND Emergency Medicine Undersea and Hyperbaric Medicine
DX: E11.621 Type 2 diabetes mellitus with foot ulcer (principal); L97.524 Non-pressure chronic ulcer of other part of left foot with necrosis of bone; I70.202 Unspecified atherosclerosis of native arteries of extremities, left leg; I13.0 Hypertensive heart and chronic kidney disease with heart failure and stage 1 through stage 4 chronic kidney disease, or unspecified chronic kidney disease; E11.22 Type 2 diabetes mellitus with diabetic chronic kidney disease; N18.3 Chronic kidney disease, stage 3 (moderate); I50.22 Chronic systolic (congestive) heart failure; E11.52 Type 2 diabetes mellitus with diabetic peripheral angiopathy with gangrene; E11.65 Type 2 diabetes mellitus with hyperglycemia; I96 Gangrene, not elsewhere classified; E11.69 Type 2 diabetes mellitus with other specified complication; M86.9 Osteomyelitis, unspecified; M87.059 Idiopathic aseptic necrosis of unspecified femur; J44.9 Chronic obstructive pulmonary disease, unspecified; E78.5 Hyperlipidemia, unspecified; E03.9 Hypothyroidism, unspecified; I25.10 Atherosclerotic heart disease of native coronary artery without angina pectoris; Z79.4 Long term (current) use of insulin; Z95.0 Presence of cardiac pacemaker; Z85.46 Personal history of malignant neoplasm of prostate; Z79.82 Long term (current) use of aspirin; Z79.84 Long term (current) use of oral hypoglycemic drugs; Z79.899 Other long term (current) drug therapy
CPT/HCPCS: 99214; G0463

== ENCOUNTER → 2017-12-14 | Outpatient (CLI) | payer MEDICARE ==
[2017-11-30 17:36] VITALS: BP 172/64
== END | disposition home or self-care (01) ==
LOC: PMGWOUND 10:52
PROVIDERS: ATTEND Emergency Medicine Undersea and Hyperbaric Medicine
DX: E11.621 Type 2 diabetes mellitus with foot ulcer (principal); L97.524 Non-pressure chronic ulcer of other part of left foot with necrosis of bone; I70.202 Unspecified atherosclerosis of native arteries of extremities, left leg; I13.0 Hypertensive heart and chronic kidney disease with heart failure and stage 1 through stage 4 chronic kidney disease, or unspecified chronic kidney disease; E11.22 Type 2 diabetes mellitus with diabetic chronic kidney disease; I50.22 Chronic systolic (congestive) heart failure; N18.3 Chronic kidney disease, stage 3 (moderate); E11.649 Type 2 diabetes mellitus with hypoglycemia without coma; E11.65 Type 2 diabetes mellitus with hyperglycemia; E11.52 Type 2 diabetes mellitus with diabetic peripheral angiopathy with gangrene; I96 Gangrene, not elsewhere classified; E11.69 Type 2 diabetes mellitus with other specified complication; M86.9 Osteomyelitis, unspecified; E03.9 Hypothyroidism, unspecified; E78.5 Hyperlipidemia, unspecified; J44.9 Chronic obstructive pulmonary disease, unspecified; I25.10 Atherosclerotic heart disease of native coronary artery without angina pectoris; Z79.4 Long term (current) use of insulin; Z79.82 Long term (current) use of aspirin; Z79.84 Long term (current) use of oral hypoglycemic drugs
CPT/HCPCS: 99214; G0463

== ENCOUNTER → 2017-12-21 | Outpatient (CLI) | payer MEDICARE ==
[2017-11-30 17:36] VITALS: BP 172/64
== END | disposition home or self-care (01) ==
LOC: PMGWOUND 08:39
PROVIDERS: ATTEND Emergency Medicine Undersea and Hyperbaric Medicine
DX: E11.621 Type 2 diabetes mellitus with foot ulcer (principal); L97.524 Non-pressure chronic ulcer of other part of left foot with necrosis of bone; I70.202 Unspecified atherosclerosis of native arteries of extremities, left leg; I13.0 Hypertensive heart and chronic kidney disease with heart failure and stage 1 through stage 4 chronic kidney disease, or unspecified chronic kidney disease; E11.22 Type 2 diabetes mellitus with diabetic chronic kidney disease; N18.3 Chronic kidney disease, stage 3 (moderate); I50.9 Heart failure, unspecified; E11.52 Type 2 diabetes mellitus with diabetic peripheral angiopathy with gangrene; I96 Gangrene, not elsewhere classified; E11.69 Type 2 diabetes mellitus with other specified complication; M86.9 Osteomyelitis, unspecified; E11.65 Type 2 diabetes mellitus with hyperglycemia; E11.649 Type 2 diabetes mellitus with hypoglycemia without coma; J44.9 Chronic obstructive pulmonary disease, unspecified; E78.5 Hyperlipidemia, unspecified; E03.9 Hypothyroidism, unspecified; I25.10 Atherosclerotic heart disease of native coronary artery without angina pectoris; I42.0 Dilated cardiomyopathy; Z79.4 Long term (current) use of insulin; Z85.46 Personal history of malignant neoplasm of prostate
CPT/HCPCS: 11042

== ENCOUNTER → 2017-12-28 | Outpatient (CLI) | payer MEDICARE ==
[2017-11-30 17:36] VITALS: BP 172/64
== END | disposition home or self-care (01) ==
LOC: PMGWOUND 09:21
PROVIDERS: ATTEND Emergency Medicine Undersea and Hyperbaric Medicine
DX: E11.621 Type 2 diabetes mellitus with foot ulcer (principal); L97.524 Non-pressure chronic ulcer of other part of left foot with necrosis of bone; I70.202 Unspecified atherosclerosis of native arteries of extremities, left leg; I13.0 Hypertensive heart and chronic kidney disease with heart failure and stage 1 through stage 4 chronic kidney disease, or unspecified chronic kidney disease; E11.22 Type 2 diabetes mellitus with diabetic chronic kidney disease; N18.3 Chronic kidney disease, stage 3 (moderate); I50.22 Chronic systolic (congestive) heart failure; E11.52 Type 2 diabetes mellitus with diabetic peripheral angiopathy with gangrene; E11.69 Type 2 diabetes mellitus with other specified complication; M86.9 Osteomyelitis, unspecified; E11.649 Type 2 diabetes mellitus with hypoglycemia without coma; J44.9 Chronic obstructive pulmonary disease, unspecified; E03.9 Hypothyroidism, unspecified; E78.5 Hyperlipidemia, unspecified; I25.10 Atherosclerotic heart disease of native coronary artery without angina pectoris; Z79.4 Long term (current) use of insulin; Z85.46 Personal history of malignant neoplasm of prostate
CPT/HCPCS: 99214; G0463

== ENCOUNTER → 2018-06-07 | Outpatient (CLI) | payer MEDICARE ==
[~2018-06-07] MED LIST changes: +AMIO200T4 PO; +AMOX1TAB58 PO; +FURO20TA3 PO; -LOSA25TA5 PO; +LOSA25TA54 PO; +RIVA15TA PO
--- NOTE | 2018-06-07 13:18 | KCIC ---
Left lower extremity venous Doppler dated 06/07/2018. No comparison available. CLINICAL INDICATION: Left leg edema. FINDINGS: Grayscale, color-flow and spectral waveform analysis performed to include the deep venous system of the left lower extremity. Normal compressibility, phasicity and augmentation of flow within the common femoral vein and superficial femoral vein. There is nonocclusive thrombosis of the popliteal vein and peroneal veins of the proximal left calf. The posterior tibial vein is not well evaluated. IMPRESSION: 1. Nonocclusive deep vein thrombosis of the popliteal vein and peroneal veins of the proximal left calf. The proximal veins are patent. Electronically signed by: Rajiv Patel MD (06/07/2018 1:14 PM) [facility]
== END | disposition home or self-care (01) ==
LOC: KCIC US 12:23
PROVIDERS: ATTEND Nurse Practitioner Gerontology
DX: I82.432 Acute embolism and thrombosis of left popliteal vein (principal); I82.492 Acute embolism and thrombosis of other specified deep vein of left lower extremity
CPT/HCPCS: 93971

== ENCOUNTER 2018-06-22 18:02 | Inpatient (IN) | payer MEDICARE ==
[~2018-06-22] VITALS: Ht 167.6 cm; Wt 67.6 kg
[~2018-06-22 18:02] MED LIST changes: -AMIO200T4 PO; -AMOX1TAB58 PO; -FURO20TA3 PO; -RIVA15TA PO
[2018-06-22] MEDS ORDERED: ACETAMINOPHEN 325 MG TABLET. PO ONE (19:00)
[2018-06-22] MEDS ORDERED: IV NORMAL SALINE 1000ML BAG 1,000 ML IV ONE ×2 (19:00→19:30)
[2018-06-22 19:06] LABS: BILIRUBIN,URINE NEGATIVE (NEG); CLARITY,URINE CLEAR; COLOR,URINE YELLOW; NITRITE,URINE NEGATIVE (NEG); PROTEIN,URINE NEGATIVE (NEG-TRACE)
[2018-06-22 19:25] LABS: BACTERIA,URINE FEW /HPF (0-FEW); HYALINE CASTS, URINE OCCASIONAL /HPF; SQUAMOUS EPITHELIAL CELL,UR FEW /LPF; WBC,URINE OCC /HPF (0-4)
[2018-06-22 19:43] LABS: BASO % 0 % (0-3); EOS # 0.1 x10^3/uL (0.0-0.7); EOS % 1 % (0-3); HEMATOCRIT 33.5 % (39.0-53.0); HEMOGLOBIN 10.8 g/dL (13.0-17.5); LYMPH # 0.5 x10^3/uL (1.0-4.8); LYMPH % 5 % (24-48); MEAN CORPUSCULAR HEMOGLOBIN 29 pg (25-35); MEAN CORPUSCULAR HGB CONC 32 g/dL (31-37); MEAN CORPUSCULAR VOLUME 89 fL (79-100); MONO # 0.8 x10^3/uL (0.0-1.1); MONO % 7 % (0-9); NEUT # 10.3 x10^3uL (1.8-7.7); NEUT % 88 % (31-73); PLATELET COUNT 298 x10^3/uL (140-400); RED BLOOD COUNT 3.76 x10^6/uL (4.30-5.70); RED CELL DISTRIBUTION WIDTH 13.6 % (11.5-14.5); WHITE BLOOD COUNT 11.7 x10^3/uL (4.0-11.0)
[2018-06-22 19:50] LABS: CALCIUM 8.9 mg/dL (8.5-10.1); CREATININE 1.7 mg/dL (0.7-1.3); GFR 38.2; POTASSIUM 5.2 mmol/L (3.5-5.1)
--- NOTE | 2018-06-22 19:51 | PHYS DOC ---
Past Medical History Past Medical History: A-Fib, CHF, Diabetes-Type II, High Cholesterol, Hypertension (FRANCIS MENARD APRN) Past Surgical History: Pacemaker, Other Additional Past Surgical Histo: HERNIA, DEFIBRILATOR (FRANCIS MENARD APRN) Alcohol Use: Rarely Drug Use: None (FRANCIS MENARD APRN) Adult General Chief Complaint Chief Complaint: ALTERED MENTAL STATUS HPI HPI Patient is a 87 year old male who presents with lethargic and fever that started last night and has continued today. and grandchildren have stated that the patient is sleeping a lot and is very lethargic and seems confused. (FRANCIS MENARD MEDICARE SPECIALIST) Review of Systems Review of Systems Constitutional: fever or chills [] Eyes: Denies change in visual acuity, redness, or eye pain [] HENT: Denies nasal congestion or sore throat [] Respiratory: Denies cough or shortness of breath [] Cardiovascular: No additional information not addressed in HPI [] GI: Denies abdominal pain, nausea, vomiting, bloody stools or diarrhea [] : Denies dysuria or hematuria [] Musculoskeletal: Denies back pain or joint pain [] Integument: Bilateral lower extremity wounds. Denies rash or skin lesions [] Neurologic: AMS. Denies headache, focal weakness or sensory changes [] Endocrine: Denies polyuria or polydipsia [] All other systems were reviewed and found to be within normal limits, except as documented in this note. (FRANCIS MENARD APRN) Current Medications Current Medications Current Medications Medications (Trade) Dose Ordered Sig/[facility] Start Time Stop Time Status Last Admin Dose Admin Acetaminophen (Tylenol) 650 mg 1X ONCE 06/22/18 19:00 06/22/18 19:01 DC 06/22/18 19:05 650 MG Aspirin (Aspirin) 300 mg ONCE ONCE 06/22/18 22:00 06/22/18 22:01 DC 06/22/18 22:06 300 MG Piperacillin Sod/ Tazobactam Sod 4.5 gm/Sodium Chloride 100 ml @ 200 mls/hr 1X ONCE 06/22/18 20:00 06/22/18 20:29 DC 06/22/18 20:08 200 MLS/HR Sodium Chloride 1,000 ml @ 1,000 mls/hr 1X ONCE 06/22/18 19:30 06/22/18 20:29 DC 06/22/18 19:36 1,000 MLS/HR Vancomycin HCl (Vanco Per Pharmacy) 1 each 1X ONCE 06/22/18 21:45 06/22/18 22:21 DC Vancomycin HCl 1.5 gm/Sodium Chloride 500 ml @ 250 mls/hr 1X ONCE 06/22/18 22:00 06/22/18 23:59 DC 06/22/18 22:06 250 MLS/HR (RAJIV VILLA DO) Allergies Allergies Allergies Coded Allergies Type Severity Reaction Last Updated Verified No Known Drug Allergies 10/04/17 No (RAJIV VILLA DO) Physical Exam Physical Exam Constitutional: Well developed, well nourished, no acute distress, SIRs[] HENT: Normocephalic, atraumatic, bilateral external ears normal, oropharynx moist, no oral exudates, nose normal. [] Eyes: PERRLA, EOMI, conjunctiva normal, no discharge. [] Neck: Normal range of motion, no tenderness, supple, no stridor. [] Cardiovascular:Heart rate Tachy rhythm, no murmur [] Lungs & Thorax: Bilateral upper breath sounds clear to auscultation, lower breath sounds diminished [] Abdomen: Bowel sounds normal, soft, no tenderness, no masses, no pulsatile masses. [] Skin: Warm, dry, Bilateral lower extremity erythema, no rash. [] Back: No tenderness, no CVA tenderness. [] Extremities: No tenderness, no cyanosis, no clubbing, ROM intact, bilateral lower extremity 3+ edema. [] Neurologic: Alert and oriented X 3, normal motor function, normal sensory function, no focal deficits noted. [] Psychologic: Affect normal, judgement normal, mood normal. [] (SAILAJA,FRANCIS Brody APRN) Current Patient Data Vital Signs Vital Signs Date Time Temp Pulse Resp B/P (MAP) Pulse Ox O2 Delivery O2 Flow Rate FiO2 06/22/18 21:55 80 99 06/22/18 21:55 99.7 99.7 06/22/18 18:15 24 135/67 (89) Nasal Cannula 2.0 (RAJIV VILLA DO) Lab Values Laboratory Tests Test 06/22/18 18:01 06/22/18 18:25 06/22/18 19:35 06/22/18 21:45 Glucose (Fingerstick) 281 mg/dL (70-99) H Urine Collection Type Unknown Urine Color Yellow Urine Clarity Clear Urine pH 5.0 Urine Specific [place] 1.025 Urine Protein Negative mg/dL (NEG-TRACE) Urine Glucose (UA) 500 mg/dL (NEG) Urine Ketones (Stick) Negative mg/dL (NEG) Urine Blood Small (NEG) Urine Nitrite Negative (NEG) Urine Bilirubin Negative (NEG) Urine Urobilinogen Dipstick 1.0 mg/dL (0.2 mg/dL) Urine Leukocyte Esterase Negative (NEG) Urine RBC 3-5 /HPF (0-2) Urine WBC Occ /HPF (0-4) Urine Squamous Epithelial Cells Few /LPF Urine Bacteria Few /HPF (0-FEW) Urine Hyaline Casts Occasional /HPF Urine Mucus Mod /LPF White Blood Count 11.7 x10^3/uL (4.0-11.0) H Red Blood Count 3.76 x10^6/uL (4.30-5.70) L Hemoglobin 10.8 g/dL (13.0-17.5) L Hematocrit 33.5 % (39.0-53.0) L Mean Corpuscular Volume 89 fL (79-100) Mean Corpuscular Hemoglobin 29 pg (25-35) Mean Corpuscular Hemoglobin Concent 32 g/dL (31-37) Red Cell Distribution Width 13.6 % (11.5-14.5) Platelet Count 298 x10^3/uL (140-400) Neutrophils (%) (Auto) 88 % (31-73) H Lymphocytes (%) (Auto) 5 % (24-48) L Monocytes (%) (Auto) 7 % (0-9) Eosinophils (%) (Auto) 1 % (0-3) Basophils (%) (Auto) 0 % (0-3) Neutrophils # (Auto) 10.3 x10^3uL (1.8-7.7) H Lymphocytes # (Auto) 0.5 x10^3/uL (1.0-4.8) L Monocytes # (Auto) 0.8 x10^3/uL (0.0-1.1) Eosinophils # (Auto) 0.1 x10^3/uL (0.0-0.7) Basophils # (Auto) 0.0 x10^3/uL (0.0-0.2) Segmented Neutrophils % 94 % (35-66) H Lymphocytes % 3 % (24-48) L Monocytes % 3 % (0-10) Platelet Estimate Adequate (ADEQUATE) Sodium Level 136 mmol/L (136-145) Potassium Level 5.2 mmol/L (3.5-5.1) H Chloride Level 102 mmol/L (98-107) Carbon Dioxide Level 25 mmol/L (21-32) Anion Gap 9 (6-14) Blood Urea Nitrogen 37 mg/dL (8-26) H Creatinine 1.7 mg/dL (0.7-1.3) H Estimated GFR (Cockcroft-Gault) 38.2 BUN/Creatinine Ratio 22 (6-20) H Glucose Level 284 mg/dL (70-99) H Lactic Acid Level 1.5 mmol/L (0.4-2.0) Calcium Level 8.9 mg/dL (8.5-10.1) Total Bilirubin 0.5 mg/dL (0.2-1.0) Aspartate Amino Transferase (AST) 12 U/L (15-37) L Alanine Aminotransferase (ALT) 11 U/L (16-63) L Alkaline Phosphatase 101 U/L (46-116) Troponin I Quantitative 0.070 ng/mL (0.000-0.055) HF-Rsi-J-Type Natriuretic Peptide 7075 pg/mL (0-449) H Total Protein 6.6 g/dL (6.4-8.2) Albumin 2.9 g/dL (3.4-5.0) L Albumin/Globulin Ratio 0.8 (1.0-1.7) L Influenza Type A Antigen Negative (NEGATIVE) Influenza Type B Antigen Negative (NEGATIVE) Laboratory Tests 06/22/18 19:35 Laboratory Tests 06/22/18 19:35 Microbiology 06/22/18 Blood Culture - Final, Complete NO GROWTH AFTER 5 DAYS (RAJIV VILLA DO) EKG EKG Intermittent pacing with sinus tach and no STEMI Interpretation Time: [address] Villa (FRANCIS MENARD APRN) Radiology/Procedures Radiology/Procedures [] (FRANCIS MENARD APRN) Impressions: [facility] [address] [place] [address] IMAGING REPORT Signed PATIENT: TAMICA ALEX ACCOUNT: [id number] : 1930 LOCATION: ER AGE: 87 SEX: M EXAM STATUS: REG ER ORD. PHYSICIAN: FRANCIS MENARD APRN REASON: ams PROCEDURE: CT HEAD WO CONTRAST EXAM: CT Head without IV contrast CLINICAL HISTORY: ams, sepsis COMPARISON: Comparison 11/23/2017 TECHNIQUE: Routine CT of the head without contrast. Soft tissues and bone windows were reviewed. PQRS compliance statement - One or more of the following individualized dose reduction techniques were utilized for this study: 1. Automated exposure control 2. Adjustment of the mA and/or kV according to patient size 3. Use of iterative reconstruction technique FINDINGS: There is no evidence of hemorrhage, mass or extra-axial fluid collection. Hopkins-white differentiation is maintained with no evidence of edema. There are non-specific foci of hypodensity in the periventricular and subcortical white matter of the cerebral hemispheres likely changes of chronic small vessel disease. There is no mass effect or shift of the intracranial structures. The ventricles and cerebral sulci are prominent for the patients stated age consistent with generalized cerebral volume loss/atrophy. The cerebellum and brainstem are unremarkable. The calvarium demonstrates no evidence of fracture or focal lesion. There is normal aeration of the visualized paranasal sinuses and mastoid air cells. The visualized portions of the orbits are normal. Atherosclerotic calcifications of the intracranial internal carotid and vertebral arteries is seen. Fat-containing lesion overlying the left frontal region consistent with subcutaneous. IMPRESSION: 1. No evidence for acute intracranial process. 2. Changes of chronic small vessel disease. Electronically signed by: Jared Stevenson MD (06/22/2018 8:00 PM) [facility] DICTATED and SIGNED BY: JARED STEVENSON MD DATE: 06/22/181999 (FRANCIS MENARD APRN) Course & Med Decision Making Course & Med Decision Making Patient is a 87 year old male who presents with lethargic and fever that started last night and has continued today. and grandchildren have stated that the patient is sleeping a lot and is very lethargic and seems confused. Patient is alert to self only. Patient falls asleep but can be aroused but he will not open his eyes. PERRLA. Lungs are clear to auscultation in upper lobes but diminished in lower lobes bilaterally. Patient does not usually wear oxygen he was 95% on room air, 118 heart rate, 24 respirations, 135/67, 101.3 temperature. Patient is on 2 L of oxygen at 98%. With examination patient has bilateral lower extremity redness with 3+ edema and an open wound to bilateral anterior feet that is draining purulent drainage. Family states that the patient went to the doctor today he had a left-sided blood clot of which they put him on medication for. Patient is incontinent of urine and urine has a strong smell. Patient denies any pain. Abdomen is soft and nontender. Patient's testicles are reddened and swollen. PERRLA. EKG shows sinus tach with a paced rhythm and no STEMI. SIRs positive. I have ordered 2 normal saline liters of fluid for the patient and Zosyn. Troponin, Potassium, WBC and kidney function elevated. No obvious acute findings on xray and read by Dr Villa. I have talked to Dr Garcia notified him of lab results. Patient to be admitted for Sepsis and Cellulitis. I have started vancomycin. (FRANCIS MENARD APRN) Dragon Disclaimer Dragon Disclaimer This electronic medical record was generated, in whole or in part, using a voice recognition dictation system. (FRANCIS MENARD APRN) Departure Departure Impression: Primary Impression: Sepsis Additional Impression: Cellulitis Disposition: 09 ADMITTED INPATIENT Admitting Physician: Rajiv Garcia (FRANCIS MENARD APRN) Condition: STABLE Referrals: Neri PRITCHARD MD (PCP) Scripts Amoxicillin/Potassium Clav (AUGMENTIN 500-125 TABLET) 1 Each Tablet 1 TAB PO BID for celulitis for 3 Days, #6 TAB Prov: KRISTYN TSAI MD 06/28/18 Metformin Hcl (METFORMIN HCL ER) 500 Mg Tab.er.24h 500 MG PO DAILYWBKFT for ANTI-DIABETIC for 30 Days, #30 TAB 0 Refills Resume tomorrow, 06/29/18. Prov: KRISTYN TSAI MD 06/28/18 Furosemide (FUROSEMIDE) 20 Mg Tablet 1 TAB PO DAILY for chf for 30 Days, #30 TAB 1 Refill Prov: KRISTYN TSAI MD 06/28/18 Rivaroxaban (XARELTO) 15 Mg Tablet 15 MG PO DAILY for afib for 30 Days, #30 TAB Prov: KRISTYN TSAI MD 06/28/18 Amiodarone Hcl (AMIODARONE HCL) 200 Mg Tablet 1 TAB PO DAILY for afib, #90 TAB 1 Refill Prov: KRISTYN TSAI MD 06/28/18 Attending Signature Attending Signature I have reviewed the PA/ORCHID HAND's note and plan of care. I was available for consultation as needed during the patient's visit in the emergency department. I agree with the clinical impression, plan, and disposition. (RAJIV VILLA DO) Problem Qualifiers Primary Impression: Sepsis Sepsis type: sepsis due to unspecified organism Qualified Codes: A41.9 - Sepsis, unspecified organism Additional Impression: Cellulitis Site of cellulitis: other site Qualified Codes: L03.818 - Cellulitis of other sites FRANCIS MENARD MEDICARE SPECIALIST Jun 22, 2018 19:51 RAJIV VILLA DO Jul 06, 2018 05:57
[2018-06-22] MEDS ORDERED: PIPERACILLIN/TAZOBACTAM 4.5 GM in IV NORMAL SALINE 100ML 100 ML IV ONE (20:00)
--- NOTE | 2018-06-22 20:03 | RAD ---
EXAM: CT Head without IV contrast CLINICAL HISTORY: ams, sepsis COMPARISON: Comparison 11/23/2017 TECHNIQUE: Routine CT of the head without contrast. Soft tissues and bone windows were reviewed. PQRS compliance statement - One or more of the following individualized dose reduction techniques were utilized for this study: 1. Automated exposure control 2. Adjustment of the mA and/or kV according to patient size 3. Use of iterative reconstruction technique FINDINGS: There is no evidence of hemorrhage, mass or extra-axial fluid collection. Hopkins-white differentiation is maintained with no evidence of edema. There are non-specific foci of hypodensity in the periventricular and subcortical white matter of the cerebral hemispheres likely changes of chronic small vessel disease. There is no mass effect or shift of the intracranial structures. The ventricles and cerebral sulci are prominent for the patients stated age consistent with generalized cerebral volume loss/atrophy. The cerebellum and brainstem are unremarkable. The calvarium demonstrates no evidence of fracture or focal lesion. There is normal aeration of the visualized paranasal sinuses and mastoid air cells. The visualized portions of the orbits are normal. Atherosclerotic calcifications of the intracranial internal carotid and vertebral arteries is seen. Fat-containing lesion overlying the left frontal region consistent with subcutaneous. IMPRESSION: 1. No evidence for acute intracranial process. 2. Changes of chronic small vessel disease. Electronically signed by: Jared Pendleton MD (06/22/2018 8:00 PM) [facility]
[2018-06-22 20:04] LABS: ALBUMIN 2.9 g/dL (3.4-5.0); ALBUMIN/GLOBULIN RATIO 0.8 (1.0-1.7); TOTAL BILIRUBIN 0.5 mg/dL (0.2-1.0); TOTAL PROTEIN 6.6 g/dL (6.4-8.2)
[2018-06-22 20:27] LABS: % LYMPHS 3 % (24-48); % MONOS 3 % (0-10); % SEGS 94 % (35-66)
[2018-06-22 20:28] LABS: PLT ESTIMATE ADEQUATE (ADEQUATE)
[2018-06-22] MEDS ORDERED: VANCOMYCIN PER PHARMACY MC ONE (21:45)
[2018-06-22] MEDS ORDERED: VANCOMYCIN 1.5 GM in IV NORMAL SALINE 500ML BAG 500 ML IV ONE (22:00)
[2018-06-22] MEDS ORDERED: ASPIRIN RECTAL 300 MG SUPP. PR ONE (22:00)
[2018-06-22 22:14] LABS: INFLUENZA A PATIENT NEGATIVE (NEGATIVE); INFLUENZA B PATIENT NEGATIVE (NEGATIVE)
[2018-06-22] MEDS ORDERED: fentaNYL PF VIAL 100 MCG/2 ML VIAL IV PRN (22:15)
[2018-06-22] MEDS ORDERED: ACETAMINOPHEN 325 MG TABLET. PO PRN (22:15)
[2018-06-22] MEDS ORDERED: ONDANSETRON PF 4 MG/2 ML VIAL. IV PRN (22:15)
--- NOTE | 2018-06-22 23:46 | RAD ---
EXAM: AP View of the chest DATE: 06/22/2018 6:55 PM INDICATION: FEVER, AMS COMPARISON: No Prior FINDINGS: Cardiac generator pack obscures a portion of the left chest with leads in stable position. Heart is moderately enlarged. Atherosclerotic calcifications of the tortuous aorta are seen. Linear interstitial opacities bilateral lung bases. Trace left pleural effusion is also seen. No lobar consolidation. No pneumothorax. IMPRESSION: 1. Cardiomegaly with trace left pleural effusion and interstitial prominence may be seen with interstitial pulmonary edema. Atypical infection may have similar appearance. Electronically signed by: Jared Pendleton MD (06/22/2018 11:43 PM) [facility]
[2018-06-23] VITALS (19 sets, daily range): BP systolic 101–154; BP diastolic 42–75
--- NOTE | 2018-06-23 04:02 | EKG ---
[facility] [address] [place] [address] Test Date: 2018-06-22 Test Time: 18:45:50 Pat Name: TAMICA ALEX Department: Room: 112 Gender: M Manager Media: : 1930 Requested By: FRANCIS MENARD Order Number: [id number] Reading MD: Dioni Hernandez MD Measurements Intervals Sabin Rate: 107 P: 90 MT: 106 QRS: 89 QRSD: 84 T: 99 QT: 378 QTc: 510 Interpretive Statements V-PACED Electronically Signed On 06-26-2018 21:58:22 CDT by Dioni Hernandez MD
[2018-06-23] MEDS ORDERED: PIP/TAZO PER PHARMACY MC PRN (07:30)
[2018-06-23 07:39] LABS: BASO # 0.1 x10^3/uL (0.0-0.2); BASO % 1 % (0-3); EOS % 0 % (0-3); HEMATOCRIT 30.4 % (39.0-53.0); HEMOGLOBIN 9.7 g/dL (13.0-17.5); LYMPH # 0.8 x10^3/uL (1.0-4.8); LYMPH % 8 % (24-48); MEAN CORPUSCULAR HEMOGLOBIN 29 pg (25-35); MEAN CORPUSCULAR HGB CONC 32 g/dL (31-37); MEAN CORPUSCULAR VOLUME 89 fL (79-100); MONO # 0.9 x10^3/uL (0.0-1.1); MONO % 8 % (0-9); NEUT # 9.2 x10^3uL (1.8-7.7); NEUT % 84 % (31-73); PLATELET COUNT 247 x10^3/uL (140-400); RED BLOOD COUNT 3.41 x10^6/uL (4.30-5.70)
[2018-06-23 07:41] LABS: CALCIUM 8.4 mg/dL (8.5-10.1); CREATININE 1.6 mg/dL (0.7-1.3)
[2018-06-23] MEDS: ASPIRIN CHEWABLE 81 MG TABLET. PO SCH (08:20)
[2018-06-23] MEDS: MULTIVITAMIN with MINERAL TABLET. PO SCH (08:20)
[2018-06-23] MEDS: FERROUS SULFATE 325 MG TABLET. PO SCH (08:20)
[2018-06-23] MEDS: LOSARTAN POTASSIUM 25 MG TABLET. PO SCH (08:20)
[2018-06-23] MEDS: PIPERACILLIN/TAZOBACTAM 2.25 GM in IV NORMAL SALINE 50ML 50 ML IV SCH ×3 (08:28→17:09)
[2018-06-23] MEDS: FLUCONAZOLE 100 MG TABLET. PO SCH (09:05)
[2018-06-23] MEDS: LINEZOLID 600 MG TABLET PO SCH ×2 (09:05→21:10)
--- NOTE | 2018-06-23 11:50 | PDOC2 ---
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 Garcia SOURCE Source: Chart review, Patient HISTORY OF PRESENT ILLNESS HISTORY OF PRESENT ILLNESS This is an 87 yo male who presented secondary to weakness, fevers, and fatigue. Troponin was check and noted to be elevated, which prompted this consult. Patient he has been weak for the last couple of weeks. Has been more sleepy recently. Slightly confused for the last couple of days. Granddaughter came over yesterday and noted him to be warm to touch; was febrile. Called her mother who recommended bringing him to the ED for further evaluation. Patient reports lower extremities have been edematous for the last couple of weeks. Left lower extremity more reddened that the right. Both are tender to touch. Patient denies any chest pain, palpitations, dizziness, diaphoresis, or nausea/ vomiting. 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)), Hernia Repair, Other ( left first toe amputation) FAMILY HISTORY Family History: Diabetes SOCIAL HISTORY Smoke: No ALCOHOL: none Drugs: None Lives: with Family CURRENT MEDICATIONS CURRENT MEDICATIONS Current Medications Medications (Trade) Dose Ordered Sig/Christiano Route PRN Reason Start Time Stop Time Status Last Admin Dose Admin Acetaminophen (Tylenol) 650 mg 1X ONCE PO 06/22/18 19:00 06/22/18 19:01 DC 06/22/18 19:05 Sodium Chloride 1,000 ml @ 1,000 mls/hr 1X ONCE IV 06/22/18 19:00 06/22/18 19:59 DC 06/22/18 19:06 Sodium Chloride 1,000 ml @ 1,000 mls/hr 1X ONCE IV 06/22/18 19:30 06/22/18 20:29 DC 06/22/18 19:36 Piperacillin Sod/ Tazobactam Sod 4.5 gm/Sodium Chloride 100 ml @ 200 mls/hr 1X ONCE IV 06/22/18 20:00 06/22/18 20:29 DC 06/22/18 20:08 Vancomycin HCl 1.5 gm/Sodium Chloride 500 ml @ 250 mls/hr 1X ONCE IV 06/22/18 22:00 06/22/18 23:59 DC 06/22/18 22:06 Aspirin (Aspirin) 300 mg ONCE ONCE MI 06/22/18 22:00 06/22/18 22:01 DC 06/22/18 22:06 Aspirin (Children'S Aspirin) 81 mg DAILY PO 06/23/18 09:00 06/23/18 08:20 Ferrous Sulfate (Feosol) 325 mg DAILYWBKFT PO 06/23/18 08:00 06/23/18 08:20 Losartan Potassium (Cozaar) 25 mg DAILY PO 06/23/18 09:00 06/23/18 08:20 Multivitamins (Thera M Plus) 1 tab DAILY PO 06/23/18 09:00 06/23/18 08:20 Piperacillin Sod/ Tazobactam Sod 2.25 gm/Sodium Chloride 50 ml @ 100 mls/hr Q6HRS IV 06/23/18 08:00 06/23/18 08:28 Linezolid (Zyvox) 600 mg BID PO 06/23/18 09:00 06/23/18 09:05 Fluconazole (Diflucan) 100 mg DAILY PO 06/23/18 09:00 06/23/18 09:05 ALLERGIES ALLERGIES: Coded Allergies: No Known Drug Allergies (Unverified , 10/04/17) ROS Review of System 14 point ROS conducted with pertinent positives noted above in HPI PHYSICAL EXAM General: Alert, Oriented X3, Cooperative HEENT: Atraumatic, Mucous membr. moist/pink Lungs: Clear to auscultation, Other (diminished bases ) Heart: Regular rate (v-paced with underlying SR), Other (2/6 systolic murmur ) Abdomen: Soft, No tenderness Extremities: Other (2+ bilateral LE edema wtih erythema) Skin: No significant lesion Neuro: Normal speech, Sensation intact Psych/Mental Status: Mental status NL, Mood NL MUSCULOSKELETAL: Osteoarthritic changes both hands VITALS VITALS Vital Signs Date Time Temp Pulse Resp B/P (MAP) Pulse Ox O2 Delivery O2 Flow Rate FiO2 06/23/18 11:00 75 18 110/50 (70) 97 Room Air 06/23/18 08:00 98.6 98.6 06/23/18 06:00 2.0 LABS Lab: Laboratory Tests Test 06/22/18 18:01 06/22/18 18:25 06/22/18 19:35 06/22/18 21:45 Glucose (Fingerstick) 281 mg/dL (70-99) Urine Collection Type Unknown Urine Color Yellow Urine Clarity Clear Urine pH 5.0 Urine Specific [place]on 1.025 Urine Protein Negative mg/dL (NEG-TRACE) Urine Glucose (UA) 500 mg/dL (NEG) Urine Ketones (Stick) Negative mg/dL (NEG) Urine Blood Small (NEG) Urine Nitrite Negative (NEG) Urine Bilirubin Negative (NEG) Urine Urobilinogen Dipstick 1.0 mg/dL (0.2 mg/dL) Urine Leukocyte Esterase Negative (NEG) Urine RBC 3-5 /HPF (0-2) Urine WBC Occ /HPF (0-4) Urine Squamous Epithelial Cells Few /LPF Urine Bacteria Few /HPF (0-FEW) Urine Hyaline Casts Occasional /HPF Urine Mucus Mod /LPF White Blood Count 11.7 x10^3/uL (4.0-11.0) Red Blood Count 3.76 x10^6/uL (4.30-5.70) Hemoglobin 10.8 g/dL (13.0-17.5) Hematocrit 33.5 % (39.0-53.0) Mean Corpuscular Volume 89 fL (79-100) Mean Corpuscular Hemoglobin 29 pg (25-35) Mean Corpuscular Hemoglobin Concent 32 g/dL (31-37) Red Cell Distribution Width 13.6 % (11.5-14.5) Platelet Count 298 x10^3/uL (140-400) Neutrophils (%) (Auto) 88 % (31-73) Lymphocytes (%) (Auto) 5 % (24-48) Monocytes (%) (Auto) 7 % (0-9) Eosinophils (%) (Auto) 1 % (0-3) Basophils (%) (Auto) 0 % (0-3) Neutrophils # (Auto) 10.3 x10^3uL (1.8-7.7) Lymphocytes # (Auto) 0.5 x10^3/uL (1.0-4.8) Monocytes # (Auto) 0.8 x10^3/uL (0.0-1.1) Eosinophils # (Auto) 0.1 x10^3/uL (0.0-0.7) Basophils # (Auto) 0.0 x10^3/uL (0.0-0.2) Segmented Neutrophils % 94 % (35-66) Lymphocytes % 3 % (24-48) Monocytes % 3 % (0-10) Platelet Estimate Adequate (ADEQUATE) Sodium Level 136 mmol/L (136-145) Potassium Level 5.2 mmol/L (3.5-5.1) Chloride Level 102 mmol/L (98-107) Carbon Dioxide Level 25 mmol/L (21-32) Anion Gap 9 (6-14) Blood Urea Nitrogen 37 mg/dL (8-26) Creatinine 1.7 mg/dL (0.7-1.3) Estimated GFR (Cockcroft-Gault) 38.2 BUN/Creatinine Ratio 22 (6-20) Glucose Level 284 mg/dL (70-99) Lactic Acid Level 1.5 mmol/L (0.4-2.0) Calcium Level 8.9 mg/dL (8.5-10.1) Total Bilirubin 0.5 mg/dL (0.2-1.0) Aspartate Amino Transf (AST/SGOT) 12 U/L (15-37) Alanine Aminotransferase (ALT/SGPT) 11 U/L (16-63) Alkaline Phosphatase 101 U/L (46-116) Troponin I Quantitative 0.070 ng/mL (0.000-0.055) HD-Jjf-G-Type Natriuretic Peptide 7075 pg/mL (0-449) Total Protein 6.6 g/dL (6.4-8.2) Albumin 2.9 g/dL (3.4-5.0) Albumin/Globulin Ratio 0.8 (1.0-1.7) Influenza Type A Antigen Negative (NEGATIVE) Influenza Type B Antigen Negative (NEGATIVE) Test 06/23/18 01:45 White Blood Count 11.0 x10^3/uL (4.0-11.0) Red Blood Count 3.41 x10^6/uL (4.30-5.70) Hemoglobin 9.7 g/dL (13.0-17.5) Hematocrit 30.4 % (39.0-53.0) Mean Corpuscular Volume 89 fL (79-100) Mean Corpuscular Hemoglobin 29 pg (25-35) Mean Corpuscular Hemoglobin Concent 32 g/dL (31-37) Red Cell Distribution Width 14.0 % (11.5-14.5) Platelet Count 247 x10^3/uL (140-400) Neutrophils (%) (Auto) 84 % (31-73) Lymphocytes (%) (Auto) 8 % (24-48) Monocytes (%) (Auto) 8 % (0-9) Eosinophils (%) (Auto) 0 % (0-3) Basophils (%) (Auto) 1 % (0-3) Neutrophils # (Auto) 9.2 x10^3uL (1.8-7.7) Lymphocytes # (Auto) 0.8 x10^3/uL (1.0-4.8) Monocytes # (Auto) 0.9 x10^3/uL (0.0-1.1) Eosinophils # (Auto) 0.0 x10^3/uL (0.0-0.7) Basophils # (Auto) 0.1 x10^3/uL (0.0-0.2) Sodium Level 140 mmol/L (136-145) Potassium Level 5.0 mmol/L (3.5-5.1) Chloride Level 107 mmol/L (98-107) Carbon Dioxide Level 24 mmol/L (21-32) Anion Gap 9 (6-14) Blood Urea Nitrogen 35 mg/dL (8-26) Creatinine 1.6 mg/dL (0.7-1.3) Estimated GFR (Cockcroft-Gault) 41.0 Glucose Level 246 mg/dL (70-99) Calcium Level 8.4 mg/dL (8.5-10.1) Troponin I Quantitative 0.286 ng/mL (0.000-0.055) ECHOCARDIOGRAM ECHOCARDIOGRAM <Conclusion> The systolic function is moderately to severely impaired. The Ejection Fraction is 25-30%. There is global hypokinesis of the left ventricle. Severe inferior wall hypokinesis. Septal motion suggestive of conduction defect. There is a pacemaker/AICD lead in the right ventricle. Doppler and Color-flow revealed moderate mitral regurgitation. There is moderate left pleural effusion. There is a trace posterior pericardial effusion. DATE: 10/20/17 1149 ASSESSMENT/PLAN ASSESSMENT/PLAN 1. Fatigue, weakness 2. Elevated trop; peak 0.2. Type II demand demand ischemia 3. Leukocytosis, fevers, ? cellulitis 4. ALON on CKD with hyperkalemia 5. Acute on chronic systolic heart failure 6. 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); LVEF 25-30% 7. PAFIB; v-paced with underlying SR 8. Hypertension; controlled 9. Hyperlipidemia; statin 10. Diabetes, II; as per PCP 11. PAD; s/p RECOVERY ROOM NURSE/stent to left SFA and RECOVERY ROOM NURSE to left TP trunk and posterior tibial artery. Follow by vascular surgery on an outpatient basis 12. DVT on Xarelto Recommendations Lasix IV x1. Repeat echo to assess LV systolic function On Xarelto due to DVT Resume Amiodarone for rhythm maintenance Continue ASA, ARB Resume Coreg at a lower dose ROBERTO PUTNAM MD 06/23/18 2101: CARDIAC CONSULT ASSESSMENT/PLAN ASSESSMENT/PLAN Patient seen and examined. Agree with PODIATRIC PHYSICIAN's assessment and plan. Continue diuresis for acute on chronic systolic heart failure Slightly elevated trop prob demand ischemia 2D echo showed EF 20-25% PAF maintaining sinus rhythm with amiodarone - continue xarelto for stroke prophylaxis PAD stable Thank you for your consultation ALLISON VIVEROS APRN Jun 23, 2018 11:50 ROBERTO PUTNAM MD Jun 23, 2018 21:01
[2018-06-23] MEDS: ASCORBIC ACID 500 MG TABLET PO SCH (12:38)
[2018-06-23] MEDS ORDERED: FUROSEMIDE 40 MG/4 ML VIAL. IVP ONE (13:00)
--- NOTE | 2018-06-23 13:57 | NUR ---
Patient to transfer from ICU room 112 to room 672. Telephone report given to Chan Park. Labs, meds, orders reviewed. Family at bedside. Transportation paged, will continue to monitor.
[2018-06-23] MEDS: ACETYLCYSTEINE 20% ORAL SOLN 600 MG/3 ML SYRINGE. PO SCH ×2 (14:00→21:09)
--- NOTE | 2018-06-23 14:32 | NUR ---
SS following for discharge planning. SS reviewed pt chart. Pt is from home with spouse and is currently on room air. No discharge needs noted at this time. SS will continue to follow for pending discharge needs.
--- NOTE | 2018-06-23 14:37 | CARD ---
MR#: [id number] Date of Study: 06/23/2018 Ordering Physician: ALLISON VIVEROS, Referring Physician: KAI MONTELONGO Tech: Ania Patricio RDCS APPROVED REPORT EXAM: Two-dimensional and M-mode echocardiogram with Doppler and color Doppler. Other Information Quality : Good INDICATION Congestive Heart Failure Surgery/Intervention ICD/Pacemaker: Date: 2016 2D DIMENSIONS RVDd1.9 (2.9-3.5cm)Left Atrium(2D)4.6 (1.6-4.0cm) IVSd1.5 (0.7-1.1cm)Aortic Root(2D)2.8 (2.0-3.7cm) LVDd5.6 (3.9-5.9cm)LVOT Diameter2.1 (1.8-2.4cm) PWd1.4 (0.7-1.1cm)LVDs5.1 (2.5-4.0cm) FS (%) 9.2 %SV30.8 ml LVEF(%)19.9 (>50%) Aortic Valve AoV Peak Michael.128.7cm/sAoV VTI21.5cm AO Peak GR.6.6mmHgLVOT VTI 23.15cm AO Mean GR.4mmHgAVA (VTI)3.70cm2 Mitral Valve MV E Pxamxpye021.0cm/sMV DECEL QQWV321mv MV A Tsgesffa476.8cm/sE/A Ratio1.0 TDI Lateral E' P. V2.96cm/sMedial E' P. V4.25cm/s E/Lateral E'35.5E/Medial E'24.7 Tricuspid Valve TR P. Somjxkgd996hu/sRAP VRQPMIJS4guVr TR Peak Gr.46sqWjKJGJ42hpFu Pulmonary Vein S1 Ubtjitbe27.9cm/sS2 Yeebifak30.89cm/s D2 Klmvjxqe82.9cm/s LEFT VENTRICLE The left ventricle is normal size. There is mild concentric left ventricular hypertrophy. The Ejectio n Fraction is 20-25%. There is moderate LV dysfunction. There is global hypokinesis of the left ventr icle. The basal to distal inferior wall is severely hypokinetic. Transmitral Doppler flow pattern is Grade I-abnormal relaxation pattern. RIGHT VENTRICLE The right ventricle is normal size. The right ventricular systolic function is normal. There is a pac emaker lead in the right ventricle. ATRIA The left atrium is mildly dilated. The right atrium size is normal. A pacemaker is seen in the right atrium consistent with history. The interatrial septum is intact with no evidence for an atrial septa l defect or patent foramen ovale as noted on 2-D or Doppler imaging. AORTIC VALVE The aortic valve is calcified but opens well. Doppler and Color Flow revealed no significant aortic r egurgitation. There is no significant aortic valvular stenosis. MITRAL VALVE The mitral valve is calcified but opens well. Mitral annular calcification is mild. There is no evide nce of mitral valve prolapse. There is no mitral valve stenosis. Doppler and Color-flow revealed trac e mitral regurgitation. TRICUSPID VALVE The tricuspid valve is normal in structure and function. Doppler and Color Flow revealed trace tricus pid regurgitation. There is moderate pulmonary hypertension. The PA pressure was estimated at 58 mmHg . There is no tricuspid valve stenosis. PULMONIC VALVE The pulmonic valve is not well visualized. Doppler and Color Flow revealed trace pulmonic valvular re gurgitation. There is no pulmonic valvular stenosis. GREAT VESSELS The aortic root is normal in size. The ascending aorta is normal in size. The IVC is normal in size a nd collapses >50% with inspiration. PERICARDIAL EFFUSION There is no evidence of significant pericardial effusion. Critical Notification Critical Value: No <Conclusion> The Ejection Fraction is 20-25%. There is moderate LV dysfunction. There is global hypokinesis of the left ventricle. The basal to distal inferior wall is severely hypo kinetic. There is a pacemaker lead in the right ventricle. Doppler and Color Flow revealed trace tricuspid regurgitation. There is moderate pulmonary hypertensi on. The PA pressure was estimated at 58 mmHg. Signed by : Dioni Hernandez, Electronically Approved : 06/23/2018 14:37:16
[2018-06-23] MEDS: IV NORMAL SALINE 1000ML BAG 1,000 ML IV SCH (15:50)
[2018-06-23 16:05] LABS: BILIRUBIN,URINE NEGATIVE (NEG); CLARITY,URINE CLEAR; COLOR,URINE YELLOW; NITRITE,URINE NEGATIVE (NEG); PH,URINE 5.5; PROTEIN,URINE NEGATIVE (NEG-TRACE)
--- NOTE | 2018-06-23 16:10 | PDOC ---
Provider Note Provider Note IR NOTE Asked to see patient for LLE angiogram, possible intervention. Hx of prior angio with stenting and angioplasty. Persistent wounds and cellulitis. LLE DVT also, now on Xarelto. Pt currently with Acute on chronic renal disease with Cr at 1.7 down to 1.6 Like to hold Xarelto 48 hours prior to angio. fine to bridge with lovenox, which can be held 12 hours prior. Will watch Cr over this time, perhaps with improve with hydration. Otherwise would have to do CO2 angiography and try and minimize contrast dose. SHEREEN VICENTE MD Jun 23, 2018 16:10
[2018-06-23 16:13] LABS: BACTERIA,URINE 0 /HPF (0-FEW); RBC,URINE OCC /HPF (0-2); SQUAMOUS EPITHELIAL CELL,UR FEW /LPF; WBC,URINE OCC /HPF (0-4)
[2018-06-23] MEDS ORDERED: RIVAROXABAN 15 MG TABLET. PO SCH (17:00)
--- NOTE | 2018-06-23 17:00 | NUR ---
Wound Care: Wound care consulted for multiple wounds. L hand with skin tear, peeling with bruising noted to periwound area, cleanse with wound wash, xeroform and foam applied. 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 Bilateral buttocks with stage II pressure ulcer, red and purple discoloration noted with possible scar tissue, pt cleaned after small bm, calazime cream applied to area, pt was encourage to shift weight in chair and wheelchair angela was ordered, RN notified that pt needs TQ2. R medial lower extremity with stasis ulcer, dark red and peeling, cleanse with wound wash, xeroform, gauze and kerlix applied to wound. Lotion applied to bilateral lower extremities. WC will continue to follow.
[2018-06-23] MEDS: AMIODARONE HCL 200 MG TABLET. PO SCH (17:08)
[2018-06-23] MEDS: CARVEDILOL 6.25 MG TABLET. PO SCH (17:09)
[2018-06-23] MEDS: INSULIN LISPRO 300 UNITS/3 ML INSULN.PEN. SQ SCH ×2 (17:52→21:20)
--- NOTE | 2018-06-23 19:49 | HP ---
ADMIT DATE: 06/22/2018 CHIEF COMPLAINT: Mental status changes. HISTORY OF PRESENT ILLNESS AND HOSPITAL COURSE: This patient is an 87-year-old male who has been lethargic and having mental status changes for the last 24-48 hours. The patient was brought into the hospital for evaluation and was confused and had fever of 101.3. Imaging studies showed mild pulmonary edema and negative CT of the head. The patient had physical findings of significant redness and cellulitis to the left lower extremity as well as some mild redness and swelling to the right lower extremity. The patient does have a documented nonocclusive DVT earlier this month and was started on Xarelto. Due to severity of findings and suspicions of sepsis, the patient was admitted to the ICU for further evaluation. Cardiology was consulted as well as Infectious Disease. The patient had evidence of vascular disease, long history of peripheral vascular disease. Interventional Radiology was also consulted. PAST MEDICAL HISTORY: Significant for: 1. 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 2. Chronic systolic congestive heart failure. 3. Type 2 diabetes. 4. Severe peripheral artery disease with previous stenting to lower extremities. 5. Hyperlipidemia. 6. Hypertension. 7. Recently diagnosed deep vein thrombosis. 8. BPH. 9. Diabetic peripheral neuropathy. 10. Atrial fibrillation. FAMILY HISTORY: Significant for coronary artery disease, otherwise noncontributory. FAMILY HISTORY: Significant for hernia repair, ICD placement, first left toe amputation, previous aortogram with stenting. SOCIAL HISTORY: Listed as a nonsmoker, does not use alcohol. He is and lives with spouse. ALLERGIES: The patient denies drug allergies. REVIEW OF SYSTEMS: The patient has been having difficulty with lower extremities for the last 2-3 weeks, diagnosed with DVT on 06/07/2018. PHYSICAL EXAMINATION: GENERAL: The patient is a well-nourished, well-developed male. He is alert and oriented after 12 hours of ICU care, IV antibiotics and fluids. HEENT: Benign. NECK: Supple. CARDIAC: Irregularly irregular with a grade 2/3 systolic ejection murmur. LUNGS: Clear. ABDOMEN: Soft, nontender with positive bowel sounds. EXTREMITIES: There is redness to the knee with multiple skin ulcers and nonhealing lesions on the lower extremity with no pulses, although good capillary refill was noted. Right lower extremity revealed edema as well with redness, but not too severe as left leg, again with poor pulses. NEUROLOGIC: Limited, but showed no unilateral findings. ASSESSMENT: 1. Suspected sepsis. 2. Metabolic encephalopathy. 3. Cellulitis of lower extremities. 4. Severe peripheral vascular disease. 5. Leukocytosis. 6. Anemia. 7. Chronic renal insufficiency. 8. Elevated troponin. 9. Diabetes out of control. 10. Moderate protein malnutrition. 11. Acute on chronic systolic congestive heart failure. PLAN: To proceed with initially diuresis followed by hydration for IV dye studies. Continue IV antibiotics and fluid resuscitation as needed for possible sepsis. KAI MONTELONGO MD DR: ARMANDO/iggy JOB#: [id number] / [id number]
--- NOTE | 2018-06-23 21:00 | CONS ---
DATE OF CONSULTATION: 06/23/2018 REFERRING PHYSICIAN: Dr. Garcia. REASON FOR CONSULTATION: Sepsis. HISTORY OF PRESENT ILLNESS: An 87-year-old male who was brought to the ER on 06/22/2018 with fever of 101 and lethargy, which started the day prior. The patient appeared confused to his and grandchildren and was sleeping a lot. The patient also had swelling in both lower extremities, recently diagnosed with a DVT of the left lower extremity, nonocclusive. The patient was febrile, was started on one dose of IV vancomycin and Zosyn in the ER. He received 2 liters of normal saline fluid boluses and was admitted to ICU for further evaluation and treatment. WBC was borderline elevated. The patient has CKD, creatinine was 1.5. He was noted to have swelling in both lower extremities, more on the left than the right with left heel pain and intermittent draining lesions. The patient also was incontinent of urine. UA was negative. Influenza screen was negative. Today, the patient is more alert this morning. He states he continues to have pain in the left lower extremity, also has swelling and pain over the left upper extremity. He denies any chills, night sweats, headache, sore throat, runny nose, difficulty swallowing, shortness of breath, nausea, vomiting, diarrhea, or dysuria. 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 PAST SURGICAL HISTORY: As above. REVIEW OF SYSTEMS: Otherwise, negative. ALLERGIES: No known drug allergies. SOCIAL HISTORY: , is currently here. No smoking, no alcohol. FAMILY HISTORY: As per HPI. CURRENT MEDICATION: IV vancomycin and Zosyn. Other medications reviewed in medication list. PHYSICAL EXAMINATION: VITAL SIGNS: T-max 101.3, currently the patient is at 99.7, pulse 74, respirations 16, blood pressure 128/50, oxygen saturation 97% on room air. GENERAL: Alert, oriented, pleasant male lying comfortably in bed, in no acute distress. HEENT: Normocephalic, atraumatic, anicteric. No thrush. Oral mucosa moist. NECK: Supple. No JVD. LUNGS: Clear bilaterally. HEART: S1, S2. Pacemaker without signs of complication. ABDOMEN: Soft, nontender, nondistended. EXTREMITIES: Bilateral lower extremity edema, left greater than the right with erythema and skin breakdown. Onychomycosis. Tenderness over the left heel. No skin breakdown. 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 Pulses present bilaterally, slight warmth. Right upper extremity bruising laterally with swelling and mild redness. NEUROLOGIC: Alert and oriented x 3, grossly nonfocal. PSYCHOLOGIC: Appropriate mood and affect. LABORATORY DATA: WBC 11.7, is now 11, hemoglobin 9.7, hematocrit 30.4, platelets 247, neutrophil count 84%. Sodium 140, potassium 5.0, chloride 107, bicarbonate 24, BUN 35, creatinine 1.6, glucose 246. Troponin 0.286. UA negative. Influenza screen negative. IMAGING: Head CT, no evidence of intracranial process, chronic small vessel disease. Chest x-ray, cardiomegaly with trace left pleural effusion, interstitial prominence may be seen with interstitial pulmonary edema, atypical infection may have similar appearance. IMPRESSION: 1. Fever.source LLE cellulitis 2. Left lower extremity cellulitis. 3. Leukocytosis. 4. Possible early sepsis. 5. Peripheral arterial disease. 6. Diabetes. 7. Onychomycosis. RECOMMENDATIONS: 1. We will continue Zosyn, adjust according to renal function. 2. Discontinue vancomycin due to underlying renal insufficiency and add Zyvox and fluconazole. 3. Elevate left lower extremity. 4. Follow up labs and cultures. 5. Discussed with his . Thank you for allowing me to participate in this patient's care. KAYLENE MESA MD DR: ROSALIA/iggy JOB#: [id number] / [id number] MELITON
[2018-06-23] MEDS: TAMSULOSIN 0.4 MG CAP.ER.24H. PO SCH (21:23)
[2018-06-24] VITALS (7 sets, daily range): BP systolic 129–156; BP diastolic 56–74
[2018-06-24] MEDS: PIPERACILLIN/TAZOBACTAM 2.25 GM in IV NORMAL SALINE 50ML 50 ML IV SCH ×4 (00:01→17:33)
[2018-06-24] MEDS: IV NORMAL SALINE 1000ML BAG 1,000 ML IV SCH ×3 (03:44→13:17)
[2018-06-24 05:30] LABS: BASO % 0 % (0-3); EOS % 1 % (0-3); HEMATOCRIT 26.2 % (39.0-53.0); HEMOGLOBIN 8.8 g/dL (13.0-17.5); LYMPH # 1.3 x10^3/uL (1.0-4.8); LYMPH % 17 % (24-48); MEAN CORPUSCULAR HEMOGLOBIN 29 pg (25-35); MEAN CORPUSCULAR HGB CONC 34 g/dL (31-37); MEAN CORPUSCULAR VOLUME 88 fL (79-100); MONO # 0.7 x10^3/uL (0.0-1.1); MONO % 9 % (0-9); NEUT # 5.6 x10^3uL (1.8-7.7); NEUT % 73 % (31-73); PLATELET COUNT 209 x10^3/uL (140-400); RED CELL DISTRIBUTION WIDTH 13.6 % (11.5-14.5); WHITE BLOOD COUNT 7.7 x10^3/uL (4.0-11.0)
[2018-06-24 05:47] LABS: CALCIUM 8.2 mg/dL (8.5-10.1); CREATININE 1.5 mg/dL (0.7-1.3); GFR 44.2; POTASSIUM 4.3 mmol/L (3.5-5.1)
[2018-06-24] MEDS: INSULIN LISPRO 300 UNITS/3 ML INSULN.PEN. SQ SCH ×4 (07:30→21:00)
--- NOTE | 2018-06-24 08:13 | RAD ---
Chest radiograph 06/24/2018 5:00 AM INDICATION: CHF COMPARISON: June 22, 2018 TECHNIQUE: Portable upright frontal view of the chest is provided. FINDINGS: The cardiomediastinal silhouette is within normal limits. Left chest wall cardiac device is in similar position. There is persistent trace left pleural effusion with adjacent passive atelectasis. Mild coronary vascular congestion. No pneumothorax No significant osseous abnormality is identified. IMPRESSION: Similar aeration of the lungs compared to prior examination. Electronically signed by: Katy Astorga MD (06/24/2018 8:10 AM) [id number]
[2018-06-24] MEDS: FLUCONAZOLE 100 MG TABLET. PO SCH (08:48)
[2018-06-24] MEDS: ACETYLCYSTEINE 20% ORAL SOLN 600 MG/3 ML SYRINGE. PO SCH ×2 (08:48→21:06)
[2018-06-24] MEDS: MULTIVITAMIN with MINERAL TABLET. PO SCH (08:48)
[2018-06-24] MEDS: LINEZOLID 600 MG TABLET PO SCH ×2 (08:48→21:06)
[2018-06-24] MEDS: CARVEDILOL 6.25 MG TABLET. PO SCH ×2 (08:48→17:30)
[2018-06-24] MEDS: FERROUS SULFATE 325 MG TABLET. PO SCH (08:48)
[2018-06-24] MEDS: ASPIRIN CHEWABLE 81 MG TABLET. PO SCH (08:48)
[2018-06-24] MEDS: ASCORBIC ACID 500 MG TABLET PO SCH (08:48)
[2018-06-24] MEDS: LOSARTAN POTASSIUM 25 MG TABLET. PO SCH (08:49)
[2018-06-24] MEDS: AMIODARONE HCL 200 MG TABLET. PO SCH (08:50)
--- NOTE | 2018-06-24 09:18 | PDOC ---
BRIEN SALAS INTERLACER 06/24/18 0918: CARDIO Progress Notes Date and Time Date of Service 06/24/2018 Time of Evaluation 0850 Subjective Subjective: No Chest Pain, No shortness of breath, No Palpitations Vitals Vitals Vital Signs Date Time Temp Pulse Resp B/P (MAP) Pulse Ox O2 Delivery O2 Flow Rate FiO2 06/24/18 08:50 79 150/69 06/24/18 07:55 98.3 18 96 Room Air 98.3 06/23/18 20:15 2.0 Weight Weight [ ] Input and Output Intake and Output Intake and Output 06/24/18 07:00 Intake Total 1430 ml Output Total 400 ml Balance 1030 ml Intake Oral 1430 ml Output Urine Total 400 ml # Bowel Movements 2 Laboratory Labs Laboratory Tests Test 06/23/18 11:49 06/23/18 13:45 06/23/18 15:30 06/23/18 16:51 Glucose (Fingerstick) 225 mg/dL (70-99) 209 mg/dL (70-99) Troponin I Quantitative 0.166 ng/mL (0.000-0.055) Urine Collection Type Unknown Urine Color Yellow Urine Clarity Clear Urine pH 5.5 Urine Specific [place] 1.025 Urine Protein Negative mg/dL (NEG-TRACE) Urine Glucose (UA) 100 mg/dL (NEG) Urine Ketones (Stick) Negative mg/dL (NEG) Urine Blood Negative (NEG) Urine Nitrite Negative (NEG) Urine Bilirubin Negative (NEG) Urine Urobilinogen Dipstick 1.0 mg/dL (0.2 mg/dL) Urine Leukocyte Esterase Negative (NEG) Urine RBC Occ /HPF (0-2) Urine WBC Occ /HPF (0-4) Urine Squamous Epithelial Cells Few /LPF Urine Bacteria 0 /HPF (0-FEW) Urine Mucus Slight /LPF Test 06/23/18 20:40 06/24/18 04:55 06/24/18 08:01 Glucose (Fingerstick) 208 mg/dL (70-99) 130 mg/dL (70-99) White Blood Count 7.7 x10^3/uL (4.0-11.0) Red Blood Count 3.00 x10^6/uL (4.30-5.70) Hemoglobin 8.8 g/dL (13.0-17.5) Hematocrit 26.2 % (39.0-53.0) Mean Corpuscular Volume 88 fL (79-100) Mean Corpuscular Hemoglobin 29 pg (25-35) Mean Corpuscular Hemoglobin Concent 34 g/dL (31-37) Red Cell Distribution Width 13.6 % (11.5-14.5) Platelet Count 209 x10^3/uL (140-400) Neutrophils (%) (Auto) 73 % (31-73) Lymphocytes (%) (Auto) 17 % (24-48) Monocytes (%) (Auto) 9 % (0-9) Eosinophils (%) (Auto) 1 % (0-3) Basophils (%) (Auto) 0 % (0-3) Neutrophils # (Auto) 5.6 x10^3uL (1.8-7.7) Lymphocytes # (Auto) 1.3 x10^3/uL (1.0-4.8) Monocytes # (Auto) 0.7 x10^3/uL (0.0-1.1) Eosinophils # (Auto) 0.0 x10^3/uL (0.0-0.7) Basophils # (Auto) 0.0 x10^3/uL (0.0-0.2) Sodium Level 137 mmol/L (136-145) Potassium Level 4.3 mmol/L (3.5-5.1) Chloride Level 106 mmol/L (98-107) Carbon Dioxide Level 23 mmol/L (21-32) Anion Gap 8 (6-14) Blood Urea Nitrogen 34 mg/dL (8-26) Creatinine 1.5 mg/dL (0.7-1.3) Estimated GFR (Cockcroft-Gault) 44.2 Glucose Level 167 mg/dL (70-99) Calcium Level 8.2 mg/dL (8.5-10.1) Microbiology Micro Microbiology 06/22/18 Blood Culture - Preliminary, Resulted NO GROWTH AFTER 1 DAY Physical Exam HEENT: Neck Supple W Full Motion Chest: Symmetric LUNGS: Clear to Auscultation Heart: S1S2, RRR (V paced) Abdomen: Soft N/T Extremities: Other (erythema with 3+ bilater LE edema) Neurology: alert, oriented, follow commands Assessment Assessment 1. Fatigue, weakness 2. Elevated trop; peak 0.2. Type II demand demand ischemia 3. Leukocytosis, fevers, ? cellulitis 4. ALON on CKD with hyperkalemia 5. Acute on chronic systolic heart failure 6. NICM s/p ICD/BLOCK LAYER-D ([place]); LVEF 25-30% 7. PAFIB; v-paced with underlying SR 8. Hypertension; controlled 9. Hyperlipidemia; statin 10. Diabetes, II; as per PCP 11. PAD; s/p ELECTRIC FAN ASSEMBLER/stent to left SFA and ELECTRIC FAN ASSEMBLER to left TP trunk and posterior tibial artery. Follow by vascular surgery on an outpatient basis 12. DVT on Xarelto 13. LE cellulitis: per ID Recommendations Pending LLE angiogram per interventional radiology Lasix therapy. DC IVF. Will need slower rate if precontrast IVF is needed. EF is 25% Xarelto on hold per interventional preference for Mon angiogram. Lovenox for the mean time for stroke prevention and for past DVT Continue with secondary prevention Amiodarone for rhythm maintenance Continue ASA, ARB, BB Follow up in 4 weeks. ROBERTO PUTNAM MD 06/24/18 1751: CARDIO Progress Notes Assessment Assessment Patient seen and examined. Agree with LACING OPERATOR's assessment and plan. Acute on chronic systolic heart failure better compensated with diuresis Slightly elevated trop prob demand ischemia 2D echo showed EF 20-25% PAF maintaining sinus rhythm with amiodarone BRIEN SALAS APRN Jun 24, 2018 09:18 ROBERTO PUTNAM MD Jun 24, 2018 17:51
--- NOTE | 2018-06-24 10:06 | NUR ---
SW following pt. PT/OT recommends SNU. Spoke with pt at bedside regarding SNU and options. Pt reported he wants to discuss options when his comes to visit him today. SW will f/u with pt later. Will continue to follow.
--- NOTE | 2018-06-24 11:49 | PDOC ---
Infectious Disease Note Subjective: Subjective Pt feeling better says left leg pain is improving no f/c no sob ROS: ROS Negative except for above. Vital Signs: Vital Signs Vital Signs Date Time Temp Pulse Resp B/P (MAP) Pulse Ox O2 Delivery O2 Flow Rate FiO2 06/24/18 08:50 79 150/69 06/24/18 08:00 Room Air 06/24/18 07:55 98.3 18 96 98.3 06/23/18 20:15 2.0 Physical Exam: PHYSICAL EXAM GENERAL: Alert, oriented, pleasant male lying comfortably in bed, in no acute distress. HEENT: Normocephalic, atraumatic, anicteric. No thrush. Oral mucosa moist. NECK: Supple. No JVD. LUNGS: Clear bilaterally. HEART: S1, S2. Pacemaker without signs of complication. ABDOMEN: Soft, nontender, nondistended. EXTREMITIES: Bilateral lower extremity edema, left greater than the right with erythema and skin breakdown. Onychomycosis. Tenderness over the left heel. No skin breakdown. 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 Pulses present bilaterally, slight warmth. Right upper extremity bruising laterally with swelling and mild redness. NEUROLOGIC: Alert and oriented x 3, grossly nonfocal. PSYCHOLOGIC: Appropriate mood and affect. Medications: Inpatient Meds: Current Medications Medications (Trade) Dose Ordered Sig/[facility] Start Time Stop Time Status Last Admin Dose Admin Acetaminophen (Tylenol) 650 mg PRN Q4HRS PRN 06/22/18 22:15 06/23/18 22:14 DC Acetylcysteine (Mucomyst 20% Oral Solution) 600 mg BID 06/23/18 14:00 06/25/18 13:59 06/24/18 08:48 600 MG Amiodarone HCl (Cordarone) 200 mg DAILY 06/23/18 16:00 06/24/18 08:50 200 MG Ascorbic Acid (Vitamin C) 500 mg DAILY 06/23/18 11:30 06/24/18 08:48 500 MG Aspirin (Aspirin) 300 mg ONCE ONCE 06/22/18 22:00 06/22/18 22:01 DC 06/22/18 22:06 300 MG Aspirin (Children'S Aspirin) 81 mg DAILY 06/23/18 09:00 06/24/18 08:48 81 MG Carvedilol (Coreg) 6.25 mg BIDWMEALS 06/23/18 17:00 06/24/18 08:48 6.25 MG Enoxaparin Sodium (Lovenox 80mg Syringe) 70 mg HS 06/23/18 21:00 06/23/18 21:23 70 MG Enoxaparin Sodium (Lovenox Per Pharmacy Treatment Dosing) 1 each PRN DAILY PRN 06/23/18 19:30 Fentanyl Citrate (Fentanyl 2ml Vial) 50 mcg PRN Q1HR PRN 06/22/18 22:15 06/23/18 22:14 DC Ferrous Sulfate (Feosol) 325 mg DAILYWBKFT 06/23/18 08:00 06/24/18 08:48 325 MG Fluconazole (Diflucan) 100 mg DAILY 06/23/18 09:00 06/24/18 08:48 100 MG Furosemide (Lasix) 40 mg 1X ONCE 06/23/18 13:00 06/23/18 13:01 DC Insulin Human Lispro (HumaLOG) 0-12 UNITS QIDACHS 06/23/18 16:30 06/23/18 21:20 4 UNITS Linezolid (Zyvox) 600 mg BID 06/23/18 09:00 06/24/18 08:48 600 MG Losartan Potassium (Cozaar) 25 mg DAILY 06/23/18 09:00 06/24/18 08:49 25 MG Multivitamins (Thera M Plus) 1 tab DAILY 06/23/18 09:00 06/24/18 08:48 1 TAB Ondansetron HCl (Zofran) 4 mg PRN Q8HRS PRN 06/22/18 22:15 06/23/18 22:14 DC Piperacillin Sod/ Tazobactam Sod (Zosyn Per Pharmacy) 1 each PRN DAILY PRN 06/23/18 07:30 Piperacillin Sod/ Tazobactam Sod 2.25 gm/Sodium Chloride 50 ml @ 100 mls/hr Q6HRS 06/23/18 08:00 06/24/18 06:03 100 MLS/HR Piperacillin Sod/ Tazobactam Sod 4.5 gm/Sodium Chloride 100 ml @ 200 mls/hr 1X ONCE 06/22/18 20:00 06/22/18 20:29 DC 06/22/18 20:08 200 MLS/HR Rivaroxaban (Xarelto) 15 mg BIDWMEALS 06/23/18 17:00 06/23/18 19:23 DC 06/23/18 17:08 15 MG Sodium Chloride 1,000 ml @ 100 mls/hr Q10H 06/23/18 13:00 06/24/18 03:44 100 MLS/HR Tamsulosin HCl (Flomax) 0.4 mg HS 06/23/18 21:00 06/23/18 21:23 0.4 MG Vancomycin HCl (Vanco Per Pharmacy) 1 each 1X ONCE 06/22/18 21:45 06/22/18 22:21 DC Vancomycin HCl 1.5 gm/Sodium Chloride 500 ml @ 250 mls/hr 1X ONCE 06/22/18 22:00 06/22/18 23:59 DC 06/22/18 22:06 250 MLS/HR Labs: Lab Laboratory Tests Test 06/23/18 11:49 06/23/18 13:45 06/23/18 15:30 06/23/18 16:51 Glucose (Fingerstick) 225 mg/dL (70-99) 209 mg/dL (70-99) Troponin I Quantitative 0.166 ng/mL (0.000-0.055) Urine Collection Type Unknown Urine Color Yellow Urine Clarity Clear Urine pH 5.5 Urine Specific [place] 1.025 Urine Protein Negative mg/dL (NEG-TRACE) Urine Glucose (UA) 100 mg/dL (NEG) Urine Ketones (Stick) Negative mg/dL (NEG) Urine Blood Negative (NEG) Urine Nitrite Negative (NEG) Urine Bilirubin Negative (NEG) Urine Urobilinogen Dipstick 1.0 mg/dL (0.2 mg/dL) Urine Leukocyte Esterase Negative (NEG) Urine RBC Occ /HPF (0-2) Urine WBC Occ /HPF (0-4) Urine Squamous Epithelial Cells Few /LPF Urine Bacteria 0 /HPF (0-FEW) Urine Mucus Slight /LPF Test 06/23/18 20:40 06/24/18 04:55 06/24/18 08:01 06/24/18 11:30 Glucose (Fingerstick) 208 mg/dL (70-99) 130 mg/dL (70-99) 166 mg/dL (70-99) White Blood Count 7.7 x10^3/uL (4.0-11.0) Red Blood Count 3.00 x10^6/uL (4.30-5.70) Hemoglobin 8.8 g/dL (13.0-17.5) Hematocrit 26.2 % (39.0-53.0) Mean Corpuscular Volume 88 fL (79-100) Mean Corpuscular Hemoglobin 29 pg (25-35) Mean Corpuscular Hemoglobin Concent 34 g/dL (31-37) Red Cell Distribution Width 13.6 % (11.5-14.5) Platelet Count 209 x10^3/uL (140-400) Neutrophils (%) (Auto) 73 % (31-73) Lymphocytes (%) (Auto) 17 % (24-48) Monocytes (%) (Auto) 9 % (0-9) Eosinophils (%) (Auto) 1 % (0-3) Basophils (%) (Auto) 0 % (0-3) Neutrophils # (Auto) 5.6 x10^3uL (1.8-7.7) Lymphocytes # (Auto) 1.3 x10^3/uL (1.0-4.8) Monocytes # (Auto) 0.7 x10^3/uL (0.0-1.1) Eosinophils # (Auto) 0.0 x10^3/uL (0.0-0.7) Basophils # (Auto) 0.0 x10^3/uL (0.0-0.2) Sodium Level 137 mmol/L (136-145) Potassium Level 4.3 mmol/L (3.5-5.1) Chloride Level 106 mmol/L (98-107) Carbon Dioxide Level 23 mmol/L (21-32) Anion Gap 8 (6-14) Blood Urea Nitrogen 34 mg/dL (8-26) Creatinine 1.5 mg/dL (0.7-1.3) Estimated GFR (Cockcroft-Gault) 44.2 Glucose Level 167 mg/dL (70-99) Calcium Level 8.2 mg/dL (8.5-10.1) Objective: Assessment: 1. Fever. resolving 2. Left lower extremity cellulitis. 3. Leukocytosis. 4. Possible early sepsis. 5. Peripheral arterial disease. 6. Diabetes. 7. Onychomycosis. Plan: Plan of Care continue Zosyn, Zyvox and fluconazole. Elevate left lower extremity. Follow up labs and cultures. D/W KAYLENE ARENAS MD Jun 24, 2018 11:49
--- NOTE | 2018-06-24 13:14 | NUR ---
SW following pt. Spoke with pt and at bedside regarding PT/OT recommendation for SNU. SW discussed SNU options in [facility]. Pt and would like to discuss options with their son. Pt is also having a procedure on Wednesday. SW will continue to follow pt.
[2018-06-24] MEDS: FUROSEMIDE 40 MG TABLET. PO SCH (17:30)
--- NOTE | 2018-06-24 17:46 | PDOC ---
PROGRESS NOTES Subjective Subjective Patient feeling better. Case discussed with interventional radiology.'Xarelto switched to Lovenox possible aortogram and runoff on Wednesday. Objective Objective Vital Signs Date Time Temp Pulse Resp B/P (MAP) Pulse Ox O2 Delivery O2 Flow Rate FiO2 06/24/18 17:30 66 130/74 06/24/18 15:00 98.2 18 95 Room Air 98.2 06/23/18 20:15 2.0 Intake and Output 06/24/18 07:00 Intake Total 1430 ml Output Total 400 ml Balance 1030 ml Intake Oral 1430 ml Output Urine Total 400 ml # Bowel Movements 2 Physical Exam Heart: Other (irregular grade 2 over 3 systolic ejection murmur) Extremities: Other (bilateral edema 2+ with decreased redness and induration. Chronic ulcerations noted) Lungs: Other (coarse breath sounds) Assessment Assessment Problems Medical Problems: (1) Cellulitis Status: Acute (2) Sepsis Status: Acute 1. Suspected sepsis. 2. Metabolic encephalopathy. 3. Cellulitis of lower extremities. 4. Severe peripheral vascular disease. 5. Leukocytosis. 6. Anemia. 7. Chronic renal insufficiency. 8. Elevated troponin. 9. Diabetes out of control. 10. Moderate protein malnutrition. 11. Acute on chronic systolic congestive heart failure. Plan Plan of Care Continue IV antibiotics. Agree with discontinuing IV fluids at this time. Consider restarting IV fluids on Wednesday in preparation for aortogram and runoff. Continue with PT and OT modalities and consider wound care consult on Wednesday. Comment Review of Relevant I have reviewed the following items chelle (where applicable) has been applied. Labs Laboratory Tests Test 06/22/18 18:01 06/22/18 18:25 06/22/18 19:35 06/22/18 21:45 Glucose (Fingerstick) 281 mg/dL (70-99) Urine Collection Type Unknown Urine Color Yellow Urine Clarity Clear Urine pH 5.0 Urine Specific Needles 1.025 Urine Protein Negative mg/dL (NEG-TRACE) Urine Glucose (UA) 500 mg/dL (NEG) Urine Ketones (Stick) Negative mg/dL (NEG) Urine Blood Small (NEG) Urine Nitrite Negative (NEG) Urine Bilirubin Negative (NEG) Urine Urobilinogen Dipstick 1.0 mg/dL (0.2 mg/dL) Urine Leukocyte Esterase Negative (NEG) Urine RBC 3-5 /HPF (0-2) Urine WBC Occ /HPF (0-4) Urine Squamous Epithelial Cells Few /LPF Urine Bacteria Few /HPF (0-FEW) Urine Hyaline Casts Occasional /HPF Urine Mucus Mod /LPF White Blood Count 11.7 x10^3/uL (4.0-11.0) Red Blood Count 3.76 x10^6/uL (4.30-5.70) Hemoglobin 10.8 g/dL (13.0-17.5) Hematocrit 33.5 % (39.0-53.0) Mean Corpuscular Volume 89 fL (79-100) Mean Corpuscular Hemoglobin 29 pg (25-35) Mean Corpuscular Hemoglobin Concent 32 g/dL (31-37) Red Cell Distribution Width 13.6 % (11.5-14.5) Platelet Count 298 x10^3/uL (140-400) Neutrophils (%) (Auto) 88 % (31-73) Lymphocytes (%) (Auto) 5 % (24-48) Monocytes (%) (Auto) 7 % (0-9) Eosinophils (%) (Auto) 1 % (0-3) Basophils (%) (Auto) 0 % (0-3) Neutrophils # (Auto) 10.3 x10^3uL (1.8-7.7) Lymphocytes # (Auto) 0.5 x10^3/uL (1.0-4.8) Monocytes # (Auto) 0.8 x10^3/uL (0.0-1.1) Eosinophils # (Auto) 0.1 x10^3/uL (0.0-0.7) Basophils # (Auto) 0.0 x10^3/uL (0.0-0.2) Segmented Neutrophils % 94 % (35-66) Lymphocytes % 3 % (24-48) Monocytes % 3 % (0-10) Platelet Estimate Adequate (ADEQUATE) Sodium Level 136 mmol/L (136-145) Potassium Level 5.2 mmol/L (3.5-5.1) Chloride Level 102 mmol/L (98-107) Carbon Dioxide Level 25 mmol/L (21-32) Anion Gap 9 (6-14) Blood Urea Nitrogen 37 mg/dL (8-26) Creatinine 1.7 mg/dL (0.7-1.3) Estimated GFR (Cockcroft-Gault) 38.2 BUN/Creatinine Ratio 22 (6-20) Glucose Level 284 mg/dL (70-99) Lactic Acid Level 1.5 mmol/L (0.4-2.0) Calcium Level 8.9 mg/dL (8.5-10.1) Total Bilirubin 0.5 mg/dL (0.2-1.0) Aspartate Amino Transf (AST/SGOT) 12 U/L (15-37) Alanine Aminotransferase (ALT/SGPT) 11 U/L (16-63) Alkaline Phosphatase 101 U/L (46-116) Troponin I Quantitative 0.070 ng/mL (0.000-0.055) JS-Uyx-R-Type Natriuretic Peptide 7075 pg/mL (0-449) Total Protein 6.6 g/dL (6.4-8.2) Albumin 2.9 g/dL (3.4-5.0) Albumin/Globulin Ratio 0.8 (1.0-1.7) Influenza Type A Antigen Negative (NEGATIVE) Influenza Type B Antigen Negative (NEGATIVE) Test 06/23/18 00:50 06/23/18 01:45 06/23/18 11:49 06/23/18 13:45 Nasal Screen MRSA (PCR) Negative (Negative) White Blood Count 11.0 x10^3/uL (4.0-11.0) Red Blood Count 3.41 x10^6/uL (4.30-5.70) Hemoglobin 9.7 g/dL (13.0-17.5) Hematocrit 30.4 % (39.0-53.0) Mean Corpuscular Volume 89 fL (79-100) Mean Corpuscular Hemoglobin 29 pg (25-35) Mean Corpuscular Hemoglobin Concent 32 g/dL (31-37) Red Cell Distribution Width 14.0 % (11.5-14.5) Platelet Count 247 x10^3/uL (140-400) Neutrophils (%) (Auto) 84 % (31-73) Lymphocytes (%) (Auto) 8 % (24-48) Monocytes (%) (Auto) 8 % (0-9) Eosinophils (%) (Auto) 0 % (0-3) Basophils (%) (Auto) 1 % (0-3) Neutrophils # (Auto) 9.2 x10^3uL (1.8-7.7) Lymphocytes # (Auto) 0.8 x10^3/uL (1.0-4.8) Monocytes # (Auto) 0.9 x10^3/uL (0.0-1.1) Eosinophils # (Auto) 0.0 x10^3/uL (0.0-0.7) Basophils # (Auto) 0.1 x10^3/uL (0.0-0.2) Sodium Level 140 mmol/L (136-145) Potassium Level 5.0 mmol/L (3.5-5.1) Chloride Level 107 mmol/L (98-107) Carbon Dioxide Level 24 mmol/L (21-32) Anion Gap 9 (6-14) Blood Urea Nitrogen 35 mg/dL (8-26) Creatinine 1.6 mg/dL (0.7-1.3) Estimated GFR (Cockcroft-Gault) 41.0 Glucose Level 246 mg/dL (70-99) Calcium Level 8.4 mg/dL (8.5-10.1) Troponin I Quantitative 0.286 ng/mL (0.000-0.055) 0.166 ng/mL (0.000-0.055) Glucose (Fingerstick) 225 mg/dL (70-99) Test 06/23/18 15:30 06/23/18 16:51 06/23/18 20:40 06/24/18 04:55 Urine Collection Type Unknown Urine Color Yellow Urine Clarity Clear Urine pH 5.5 Urine Specific Needles 1.025 Urine Protein Negative mg/dL (NEG-TRACE) Urine Glucose (UA) 100 mg/dL (NEG) Urine Ketones (Stick) Negative mg/dL (NEG) Urine Blood Negative (NEG) Urine Nitrite Negative (NEG) Urine Bilirubin Negative (NEG) Urine Urobilinogen Dipstick 1.0 mg/dL (0.2 mg/dL) Urine Leukocyte Esterase Negative (NEG) Urine RBC Occ /HPF (0-2) Urine WBC Occ /HPF (0-4) Urine Squamous Epithelial Cells Few /LPF Urine Bacteria 0 /HPF (0-FEW) Urine Mucus Slight /LPF Glucose (Fingerstick) 209 mg/dL (70-99) 208 mg/dL (70-99) White Blood Count 7.7 x10^3/uL (4.0-11.0) Red Blood Count 3.00 x10^6/uL (4.30-5.70) Hemoglobin 8.8 g/dL (13.0-17.5) Hematocrit 26.2 % (39.0-53.0) Mean Corpuscular Volume 88 fL (79-100) Mean Corpuscular Hemoglobin 29 pg (25-35) Mean Corpuscular Hemoglobin Concent 34 g/dL (31-37) Red Cell Distribution Width 13.6 % (11.5-14.5) Platelet Count 209 x10^3/uL (140-400) Neutrophils (%) (Auto) 73 % (31-73) Lymphocytes (%) (Auto) 17 % (24-48) Monocytes (%) (Auto) 9 % (0-9) Eosinophils (%) (Auto) 1 % (0-3) Basophils (%) (Auto) 0 % (0-3) Neutrophils # (Auto) 5.6 x10^3uL (1.8-7.7) Lymphocytes # (Auto) 1.3 x10^3/uL (1.0-4.8) Monocytes # (Auto) 0.7 x10^3/uL (0.0-1.1) Eosinophils # (Auto) 0.0 x10^3/uL (0.0-0.7) Basophils # (Auto) 0.0 x10^3/uL (0.0-0.2) Sodium Level 137 mmol/L (136-145) Potassium Level 4.3 mmol/L (3.5-5.1) Chloride Level 106 mmol/L (98-107) Carbon Dioxide Level 23 mmol/L (21-32) Anion Gap 8 (6-14) Blood Urea Nitrogen 34 mg/dL (8-26) Creatinine 1.5 mg/dL (0.7-1.3) Estimated GFR (Cockcroft-Gault) 44.2 Glucose Level 167 mg/dL (70-99) Calcium Level 8.2 mg/dL (8.5-10.1) Test 06/24/18 08:01 06/24/18 11:30 06/24/18 17:06 Glucose (Fingerstick) 130 mg/dL (70-99) 166 mg/dL (70-99) 191 mg/dL (70-99) Laboratory Tests Test 06/23/18 20:40 06/24/18 04:55 06/24/18 08:01 06/24/18 11:30 Glucose (Fingerstick) 208 mg/dL (70-99) 130 mg/dL (70-99) 166 mg/dL (70-99) White Blood Count 7.7 x10^3/uL (4.0-11.0) Red Blood Count 3.00 x10^6/uL (4.30-5.70) Hemoglobin 8.8 g/dL (13.0-17.5) Hematocrit 26.2 % (39.0-53.0) Mean Corpuscular Volume 88 fL (79-100) Mean Corpuscular Hemoglobin 29 pg (25-35) Mean Corpuscular Hemoglobin Concent 34 g/dL (31-37) Red Cell Distribution Width 13.6 % (11.5-14.5) Platelet Count 209 x10^3/uL (140-400) Neutrophils (%) (Auto) 73 % (31-73) Lymphocytes (%) (Auto) 17 % (24-48) Monocytes (%) (Auto) 9 % (0-9) Eosinophils (%) (Auto) 1 % (0-3) Basophils (%) (Auto) 0 % (0-3) Neutrophils # (Auto) 5.6 x10^3uL (1.8-7.7) Lymphocytes # (Auto) 1.3 x10^3/uL (1.0-4.8) Monocytes # (Auto) 0.7 x10^3/uL (0.0-1.1) Eosinophils # (Auto) 0.0 x10^3/uL (0.0-0.7) Basophils # (Auto) 0.0 x10^3/uL (0.0-0.2) Sodium Level 137 mmol/L (136-145) Potassium Level 4.3 mmol/L (3.5-5.1) Chloride Level 106 mmol/L (98-107) Carbon Dioxide Level 23 mmol/L (21-32) Anion Gap 8 (6-14) Blood Urea Nitrogen 34 mg/dL (8-26) Creatinine 1.5 mg/dL (0.7-1.3) Estimated GFR (Cockcroft-Gault) 44.2 Glucose Level 167 mg/dL (70-99) Calcium Level 8.2 mg/dL (8.5-10.1) Test 06/24/18 17:06 Glucose (Fingerstick) 191 mg/dL (70-99) Microbiology 06/22/18 Blood Culture - Preliminary, Resulted NO GROWTH AFTER 1 DAY Medications Current Medications Acetaminophen (Tylenol) 650 mg 1X ONCE PO Last administered on 06/22/18at 19:05 ; Start 06/22/18 at 19:00; Stop 06/22/18 at 19:01; Status DC Sodium Chloride 1,000 ml @ 1,000 mls/hr 1X ONCE IV Last administered on at 19:06; Start 06/22/18 at 19:00; Stop 06/22/18 at 19:59; Status DC Sodium Chloride 1,000 ml @ 1,000 mls/hr 1X ONCE IV Last administered on at 19:36; Start 06/22/18 at 19:30; Stop 06/22/18 at 20:29; Status DC Piperacillin Sod/ Tazobactam Sod 4.5 gm/Sodium Chloride 100 ml @ 200 mls/hr 1X ONCE IV Last administered on 06/22/18at 20:08; Start 06/22/18 at 20:00; Stop 06/22/18 at 20:29; Status DC Vancomycin HCl (Vanco Per Pharmacy) 1 each 1X ONCE MC ; Start 06/22/18 at 21:45 ; Stop 06/22/18 at 22:21; Status DC Vancomycin HCl 1.5 gm/Sodium Chloride 500 ml @ 250 mls/hr 1X ONCE IV Last administered on 06/22/18at 22:06; Start 06/22/18 at 22:00; Stop 06/22/18 at 23:59 ; Status DC Aspirin (Aspirin) 300 mg ONCE ONCE TN Last administered on 06/22/18at 22:06; Start 06/22/18 at 22:00; Stop 06/22/18 at 22:01; Status DC Ondansetron HCl (Zofran) 4 mg PRN Q8HRS PRN IV NAUSEA/VOMITING; Start 06/22/18 at 22:15; Stop 06/23/18 at 22:14; Status DC Fentanyl Citrate (Fentanyl 2ml Vial) 50 mcg PRN Q1HR PRN IV PAIN; Start at 22:15; Stop 06/23/18 at 22:14; Status DC Acetaminophen (Tylenol) 650 mg PRN Q4HRS PRN PO FEVER; Start 06/22/18 at 22:15 ; Stop 06/23/18 at 22:14; Status DC Aspirin (Children'S Aspirin) 81 mg DAILY PO Last administered on 06/24/18 08: 48; Start 06/23/18 at 09:00 Ferrous Sulfate (Feosol) 325 mg DAILYWBKFT PO Last administered on 06/24/18 08 :48; Start 06/23/18 at 08:00 Losartan Potassium (Cozaar) 25 mg DAILY PO Last administered on 06/24/18 08:49 ; Start 06/23/18 at 09:00 Tamsulosin HCl (Flomax) 0.4 mg HS PO Last administered on 06/23/18 21:23; Start 06/23/18 at 21:00 Multivitamins (Thera M Plus) 1 tab DAILY PO Last administered on 06/24/18 08: 48; Start 06/23/18 at 09:00 Rivaroxaban (Xarelto) 15 mg BIDWMEALS PO Last administered on 06/23/18 17:08; Start 06/23/18 at 17:00; Stop 06/23/18 at 19:23; Status DC Piperacillin Sod/ Tazobactam Sod (Zosyn Per Pharmacy) 1 each PRN DAILY PRN MC SEE COMMENTS; Start 06/23/18 at 07:30 Piperacillin Sod/ Tazobactam Sod 2.25 gm/Sodium Chloride 50 ml @ 100 mls/hr Q6HRS IV Last administered on 06/24/18 17:33; Start 06/23/18 at 08:00 Linezolid (Zyvox) 600 mg BID PO Last administered on 06/24/18 08:48; Start at 09:00 Fluconazole (Diflucan) 100 mg DAILY PO Last administered on 06/24/18 08:48; Start 06/23/18 at 09:00 Ascorbic Acid (Vitamin C) 500 mg DAILY PO Last administered on 06/24/18at 08:48 ; Start 06/23/18 at 11:30 Acetylcysteine (Mucomyst 20% Oral Solution) 600 mg BID PO Last administered on 06/24/18 08:48; Start 06/23/18 at 14:00; Stop 06/25/18 at 13:59 Sodium Chloride 1,000 ml @ 100 mls/hr Q10H IV Last administered on 06/24/18at 13:17; Start 06/23/18 at 13:00; Stop 06/24/18 at 15:40; Status DC Furosemide (Lasix) 40 mg 1X ONCE IVP ; Start 06/23/18 at 13:00; Stop 06/23/18 at 13:01; Status DC Insulin Human Lispro (HumaLOG) 0-12 UNITS QIDACHS SQ Last administered on 17:39; Start 06/23/18 at 16:30 Amiodarone HCl (Cordarone) 200 mg DAILY PO Last administered on 06/24/18at 08:50 ; Start 06/23/18 at 16:00 Carvedilol (Coreg) 6.25 mg BIDWMEALS PO Last administered on 06/24/18at 17:30; Start 06/23/18 at 17:00 Enoxaparin Sodium (Lovenox Per Pharmacy Treatment Dosing) 1 each PRN DAILY PRN MC SEE COMMENTS; Start 06/23/18 at 19:30 Enoxaparin Sodium (Lovenox 80mg Syringe) 70 mg HS SQ Last administered on at 21:23; Start 06/23/18 at 21:00 Furosemide (Lasix) 40 mg DAILY PO Last administered on 06/24/18at 17:30; Start 06/24/18 at 15:45 Active Scripts Active Feosol (Ferrous Sulfate) 325 Mg Tablet 325 Mg PO DAILYWBKFT 30 Days Reported Tamsulosin Hcl 0.4 Mg Cap.er.24h 2 Cap PO HS Aspirin 81 Mg Tab.chew 1 Tab PO DAILY Metformin Hcl Er (Metformin Hcl) 500 Mg Tab.er.24h 500 Mg PO DAILYWBKFT Losartan Potassium (Losartan Potassium) 25 Mg Tablet 25 Mg PO DAILY Carvedilol 25 Mg Tablet 1 Tab PO BID Centrum Silver Tablet (Multivits-Min/Fa/Lycopene/Lut) 1 Each Tablet 1 Each PO DAILY Vitals/I & O Vital Sign - Last 24 Hours 06/23/18 06/23/18 06/23/1806/24/19 20:15 20:22 23:07 03:27 Temp 98.4 98.9 98.8 98.4 98.9 98.8 Pulse 73 78 79 Resp 20 16 16 B/P (MAP) 153/62 (92) 141/51 (81) 129/61 (83) Pulse Ox 98 94 95 O2 Delivery Room Air Room Air Room Air Room Air O2 Flow Rate 2.0 06/24/18 06/24/18 06/24/18 06/24/18 07:55 08:00 08:48 08:49 Temp 98.3 98.3 Pulse 79 79 79 Resp 18 B/P (MAP) 150/69 (96) 150/69 150/69 Pulse Ox 96 O2 Delivery Room Air Room Air 06/24/18 06/24/18 06/24/18 06/24/18 08:50 11:00 15:00 17:30 Temp 98.3 98.2 98.3 98.2 Pulse 79 62 66 66 Resp 18 18 B/P (MAP) 150/69 134/58 (83) 130/74 (92) 130/74 Pulse Ox 96 95 O2 Delivery Room Air Room Air Intake and Output 06/23/18 06/23/18 06/24/18 15:00 23:00 07:00 Intake Total 860 ml 360 ml 210 ml Output Total 200 ml 200 ml Balance 660 ml 360 ml 10 ml Nutrition Consultation Dietary Evaluation: Recommendations by RD: Protein supplementation Comments: Recommend glucerna TID Recommend 500mg Vit. C Q day Expected Outcomes/Goals: P.O. intake to meet >75% estimated needs Malnutrition Findings: Body Fat Depletion (Non Severe: Mild Depletion Weight Status: Appropriate KAI MONTELONGO MD Jun 24, 2018 17:46
[2018-06-24] MEDS: TAMSULOSIN 0.4 MG CAP.ER.24H. PO SCH (21:06)
[2018-06-25 03:19] VITALS: BP 142/40
[2018-06-25 04:16] LABS: HEMATOCRIT 27.6 % (39.0-53.0); HEMOGLOBIN 9.1 g/dL (13.0-17.5); RED BLOOD COUNT 3.16 x10^6/uL (4.30-5.70); RED CELL DISTRIBUTION WIDTH 13.8 % (11.5-14.5); WHITE BLOOD COUNT 6.5 x10^3/uL (4.0-11.0)
[2018-06-25 05:06] LABS: CALCIUM 8.4 mg/dL (8.5-10.1); CREATININE 1.6 mg/dL (0.7-1.3); POTASSIUM 4.1 mmol/L (3.5-5.1)
[2018-06-25] MEDS: PIPERACILLIN/TAZOBACTAM 2.25 GM in IV NORMAL SALINE 50ML 50 ML IV SCH ×6 (05:43→19:29)
[2018-06-25 07:00] VITALS: BP 146/84
--- NOTE | 2018-06-25 08:45 | PDOC ---
SUBJECTIVE Subjective Pt states that he is feeling pretty good this morning. Earlier this morning had a very large bowel movement. Pain in his lower extremities has improved OBJECTIVE Vital Signs Vital Signs Date Time Temp Pulse Resp B/P (MAP) Pulse Ox O2 Delivery O2 Flow Rate FiO2 06/25/18 07:00 97.4 71 17 146/84 (104) 100 Room Air 97.4 06/25/18 03:19 97.8 78 16 142/40 (74) 95 Room Air 97.8 06/24/18 23:07 98.2 69 16 156/67 (96) 96 Room Air 98.2 06/24/18 20:00 Room Air 06/24/18 19:15 98.2 68 16 138/56 (83) 94 Room Air 98.2 06/24/18 17:30 66 130/74 06/24/18 15:00 98.2 66 18 130/74 (92) 95 Room Air 98.2 06/24/18 11:00 98.3 62 18 134/58 (83) 96 Room Air 98.3 06/24/18 08:50 79 150/69 06/24/18 08:49 79 150/69 06/24/18 08:48 79 150/69 I & O Intake and Output 06/25/18 07:00 Intake Total 300 ml Output Total 400 ml Balance -100 ml Intake Oral 300 ml Output Urine Total 400 ml PHYSICAL EXAM Physical Exam GEN: NAD, AOx3 HEENT: MMM, EOMI, no scleral icterus/injection Cardiac: RRR, no M/R/G Lungs: distant breath sounds but CTAB, regular breathing rate and effort Abd: soft, non distended, NTTP Ext: RLE wrapped in kerlix, LLE 2+edema with erythema Neuro: CN2-12 GI ASSESSMENT/PLAN Assessment/Plan Pt is a 87yoCM admitted with sepsis 2/2 cellulitis 1. Sepsis 2/2 Cellulitis- ID following. Pt currently receiving fluconazole, linezolid and zosyn. Pt states symptoms are improving. Receiving lasix to help with edema. Pt to be getting possible aortogram and runoff on Wednesday 2. Metabolic encephalopathy- improved 3. Cellulitis of lower extremities. 4. Severe peripheral vascular disease. 5. Leukocytosis- resolved 6. Anemia- chronic, stable. Pt continued on Ferrous Sulfate 7. Chronic renal insufficiency- stable 8. Elevated troponin- Cardiology following. Thought to be 2/2 demand ischemia 9. Diabetes- uncontrolled. 10. Moderate protein malnutrition. 11. Acute on chronic systolic congestive heart failure. 12. HTN- moderately controlled. Currently receiving Carvedilol 6.25mg BID and Losartan. Increase losartan 13. Atrial fibrillation- pt currently on Amiodarone. On Lovenox for surgery COMMENT Lab Laboratory Tests Test 06/24/18 11:30 06/24/18 17:06 06/24/18 20:48 06/25/18 03:55 Glucose (Fingerstick) 166 mg/dL (70-99) 191 mg/dL (70-99) 125 mg/dL (70-99) White Blood Count 6.5 x10^3/uL (4.0-11.0) Red Blood Count 3.16 x10^6/uL (4.30-5.70) Hemoglobin 9.1 g/dL (13.0-17.5) Hematocrit 27.6 % (39.0-53.0) Mean Corpuscular Volume 87 fL (79-100) Mean Corpuscular Hemoglobin 29 pg (25-35) Mean Corpuscular Hemoglobin Concent 33 g/dL (31-37) Red Cell Distribution Width 13.8 % (11.5-14.5) Platelet Count 241 x10^3/uL (140-400) Sodium Level 136 mmol/L (136-145) Potassium Level 4.1 mmol/L (3.5-5.1) Chloride Level 103 mmol/L (98-107) Carbon Dioxide Level 24 mmol/L (21-32) Anion Gap 9 (6-14) Blood Urea Nitrogen 32 mg/dL (8-26) Creatinine 1.6 mg/dL (0.7-1.3) Estimated GFR (Cockcroft-Gault) 41.0 Glucose Level 164 mg/dL (70-99) Calcium Level 8.4 mg/dL (8.5-10.1) Test 06/25/18 07:19 Glucose (Fingerstick) 156 mg/dL (70-99) Nutrition Consultation Dietary Evaluation: Recommendations by RD: Protein supplementation Comments: Recommend glucerna TID Recommend 500mg Vit. C Q day Expected Outcomes/Goals: P.O. intake to meet >75% estimated needs Malnutrition Findings: Body Fat Depletion (Non Severe: Mild Depletion Weight Status: Appropriate SOREN AMIN MD Jun 25, 2018 08:45
[2018-06-25] MEDS: ACETYLCYSTEINE 20% ORAL SOLN 600 MG/3 ML SYRINGE. PO SCH (09:16)
[2018-06-25] MEDS: LINEZOLID 600 MG TABLET PO SCH ×2 (09:17→20:33)
[2018-06-25] MEDS: MULTIVITAMIN with MINERAL TABLET. PO SCH (09:18)
[2018-06-25] MEDS: ASPIRIN CHEWABLE 81 MG TABLET. PO SCH (09:18)
[2018-06-25] MEDS: FUROSEMIDE 40 MG TABLET. PO SCH (09:18)
[2018-06-25] MEDS: CARVEDILOL 6.25 MG TABLET. PO SCH ×2 (09:18→17:00)
[2018-06-25] MEDS: AMIODARONE HCL 200 MG TABLET. PO SCH (09:18)
[2018-06-25] MEDS: FLUCONAZOLE 100 MG TABLET. PO SCH (09:18)
[2018-06-25] MEDS: ASCORBIC ACID 500 MG TABLET PO SCH (09:18)
[2018-06-25] MEDS: FERROUS SULFATE 325 MG TABLET. PO SCH (09:18)
[2018-06-25] MEDS: INSULIN LISPRO 300 UNITS/3 ML INSULN.PEN. SQ SCH ×4 (09:33→20:47)
--- NOTE | 2018-06-25 10:44 | PDOC ---
Infectious Disease Note Subjective Subjective Says leg feels good Denies pain Up walking without difficulty Denies F/C/S/N/V/D/SOA Appetite fine ROS ROS per HPI otherwise neg Vital Sign Vital Signs Vital Signs Date Time Temp Pulse Resp B/P (MAP) Pulse Ox O2 Delivery O2 Flow Rate FiO2 06/25/18 09:18 71 146/84 06/25/18 07:00 97.4 17 100 Room Air 97.4 Physical Exam PHYSICAL EXAM GENERAL: Sitting in the chair, legs elevated, relaxed appearance HEENT: LION, Oral cavity clear, dentures NECK: Supple. No JVD. LUNGS: Clear bilaterally. HEART: S1, S2. Pacemaker without signs of complication. ABDOMEN: Soft, nontender, nondistended. EXTREMITIES: Less bilateral lower extremity edema, + wrinkles. Less redness with elevation; superficial skin breakdown right [place] area. Onychomycosis. NEUROLOGIC: Alert and oriented x 3, grossly nonfocal. PIV Labs Lab Laboratory Tests Test 06/24/18 11:30 06/24/18 17:06 06/24/18 20:48 06/25/18 03:55 Glucose (Fingerstick) 166 mg/dL (70-99) 191 mg/dL (70-99) 125 mg/dL (70-99) White Blood Count 6.5 x10^3/uL (4.0-11.0) Red Blood Count 3.16 x10^6/uL (4.30-5.70) Hemoglobin 9.1 g/dL (13.0-17.5) Hematocrit 27.6 % (39.0-53.0) Mean Corpuscular Volume 87 fL (79-100) Mean Corpuscular Hemoglobin 29 pg (25-35) Mean Corpuscular Hemoglobin Concent 33 g/dL (31-37) Red Cell Distribution Width 13.8 % (11.5-14.5) Platelet Count 241 x10^3/uL (140-400) Sodium Level 136 mmol/L (136-145) Potassium Level 4.1 mmol/L (3.5-5.1) Chloride Level 103 mmol/L (98-107) Carbon Dioxide Level 24 mmol/L (21-32) Anion Gap 9 (6-14) Blood Urea Nitrogen 32 mg/dL (8-26) Creatinine 1.6 mg/dL (0.7-1.3) Estimated GFR (Cockcroft-Gault) 41.0 Glucose Level 164 mg/dL (70-99) Calcium Level 8.4 mg/dL (8.5-10.1) Test 06/25/18 07:19 Glucose (Fingerstick) 156 mg/dL (70-99) Micro Microbiology 06/22/18 Blood Culture - Preliminary, Resulted NO GROWTH AFTER 2 DAYS Objective Assessment Fever. resolved Leukocytosis, resolved Left lower extremity cellulitis, improving DVT LLE (US 06/07), Xarelto currently on hold ALON on CKD Peripheral arterial disease. Diabetes. Onychomycosis. 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 amiodarone therapy h/o PSAE in urine (pansensitive) Plan Plan of Care Zyvox and Zosyn since 06/23 Fluconazole since 06/23 will d/c on Amiodarone dose Micafungin for a few doses Elevate left lower extremity. Monitor labs/temp LLE angiogram, possibly Wednesday Attending Co-Sign Attending Co-Sign The patient was seen and interviewed as well as examined at the bedside. The chart was reviewed. The case was discussed. Agree with the plan of care. ANSELMO RODRÍGUEZ APRN Jun 25, 2018 10:44 VERO RAUSHC MD Jun 25, 2018 13:23
[2018-06-25 11:05] VITALS: BP 134/57
[2018-06-25] MEDS: ANTI-COAG MONITOR BY PHARMACY. MC PRN (13:45)
[2018-06-25 15:00] VITALS: BP 148/73
[2018-06-25 19:35] VITALS: BP 147/55
[2018-06-25] MEDS: LACTOBACILLUS RHAMNOSUS GG 1 CAPSULE. PO SCH (20:33)
[2018-06-25] MEDS: TAMSULOSIN 0.4 MG CAP.ER.24H. PO SCH (20:33)
[2018-06-25 23:24] VITALS: BP 148/56
[2018-06-26] MEDS: PIPERACILLIN/TAZOBACTAM 2.25 GM in IV NORMAL SALINE 50ML 50 ML IV SCH ×4 (00:04→17:48)
[2018-06-26 02:09] LABS: HEMOGLOBIN A1C 9.1 % (4.8-5.6)
[2018-06-26 03:36] VITALS: BP 152/62
[2018-06-26 04:26] LABS: CALCIUM 7.8 mg/dL (8.5-10.1); CREATININE 1.6 mg/dL (0.7-1.3); POTASSIUM 3.6 mmol/L (3.5-5.1)
[2018-06-26 08:00] VITALS: BP 152/88
[2018-06-26] MEDS: ASCORBIC ACID 500 MG TABLET PO SCH (08:16)
[2018-06-26] MEDS: LINEZOLID 600 MG TABLET PO SCH ×2 (08:16→20:54)
[2018-06-26] MEDS: FUROSEMIDE 40 MG TABLET. PO SCH (08:16)
[2018-06-26] MEDS: FERROUS SULFATE 325 MG TABLET. PO SCH (08:16)
[2018-06-26] MEDS: LACTOBACILLUS RHAMNOSUS GG 1 CAPSULE. PO SCH ×2 (08:17→20:54)
[2018-06-26] MEDS: ASPIRIN CHEWABLE 81 MG TABLET. PO SCH (08:17)
[2018-06-26] MEDS: CARVEDILOL 6.25 MG TABLET. PO SCH ×2 (08:17→17:49)
[2018-06-26] MEDS: LOSARTAN POTASSIUM 50 MG TABLET. PO SCH (08:18)
[2018-06-26] MEDS: AMIODARONE HCL 200 MG TABLET. PO SCH (08:18)
[2018-06-26] MEDS: MULTIVITAMIN with MINERAL TABLET. PO SCH (08:18)
[2018-06-26] MEDS: MICAFUNGIN 100 MG in IV DEXTROSE 5% 100ML 100 ML IV SCH (08:19)
[2018-06-26] MEDS: INSULIN LISPRO 300 UNITS/3 ML INSULN.PEN. SQ SCH ×4 (08:27→20:55)
--- NOTE | 2018-06-26 10:36 | PDOC ---
SUBJECTIVE Subjective Pt is feeling okay this morning. Pain is improving. Was walking with physical therapy with walker very well. OBJECTIVE Vital Signs Vital Signs Date Time Temp Pulse Resp B/P (MAP) Pulse Ox O2 Delivery O2 Flow Rate FiO2 06/26/18 08:18 68 152/62 06/26/18 08:18 68 152/62 06/26/18 08:17 68 152/62 06/26/18 08:00 97.4 67 18 152/88 (109) 99 Room Air 97.4 06/26/18 03:36 97.8 68 20 152/62 (92) 98 Room Air 97.8 06/25/18 23:24 98.0 66 20 148/56 (86) 98 Room Air 98.0 06/25/18 20:00 Room Air 2.0 06/25/18 19:35 97.6 73 18 147/55 (85) 97 Room Air 97.6 06/25/18 17:00 60 148/73 06/25/18 15:00 97.6 60 16 148/73 (98) 99 Room Air 97.6 06/25/18 11:05 97.6 67 18 134/57 (82) 98 Room Air 97.6 I & O Intake and Output 06/26/18 07:00 Intake Total 120 ml Output Total 800 ml Balance -680 ml Intake Oral 120 ml Output Urine Total 800 ml PHYSICAL EXAM Physical Exam GEN: NAD, AOx3 HEENT: MMM, EOMI, no scleral icterus/injection Cardiac: RRR, no M/R/G Lungs: CTAB, regular breathing rate and effort Abd: soft, non distended, NTTP Ext: RLE wrapped in kerlix, LLE 3+edema with erythema Neuro: CN2-12 GI ASSESSMENT/PLAN Assessment/Plan Pt is a 87yoCM admitted with sepsis 2/2 cellulitis 1. Sepsis 2/2 Cellulitis- ID following. Pt currently receiving micofungin, linezolid and zosyn. Pt states symptoms are improving. Receiving lasix to help with edema. Pt to be getting possible aortogram and runoff on Wednesday 2. Metabolic encephalopathy- improved 3. Cellulitis of lower extremities. 4. Severe peripheral vascular disease. 5. Leukocytosis- resolved 6. Anemia- chronic, stable. Pt continued on Ferrous Sulfate 7. Chronic renal insufficiency- stable 8. Elevated troponin- Cardiology following. Thought to be 2/2 demand ischemia 9. Diabetes- uncontrolled. HbA1C 9.1. Normally on Metformin, currently getting SSI. Will start glipizide 10. Moderate protein malnutrition. 11. Acute on chronic systolic congestive heart failure- currently compensated 12. HTN- moderately controlled. Currently receiving Carvedilol 6.25mg BID, Losartan 50mg, and Lasix 13. Atrial fibrillation- pt currently on Amiodarone. On Lovenox for surgery COMMENT Lab Laboratory Tests Test 06/25/18 11:50 06/25/18 17:06 06/25/18 20:45 06/26/18 03:15 Glucose (Fingerstick) 201 mg/dL (70-99) 140 mg/dL (70-99) 193 mg/dL (70-99) Sodium Level 136 mmol/L (136-145) Potassium Level 3.6 mmol/L (3.5-5.1) Chloride Level 103 mmol/L (98-107) Carbon Dioxide Level 25 mmol/L (21-32) Anion Gap 8 (6-14) Blood Urea Nitrogen 29 mg/dL (8-26) Creatinine 1.6 mg/dL (0.7-1.3) Estimated GFR (Cockcroft-Gault) 41.0 Glucose Level 224 mg/dL (70-99) Calcium Level 7.8 mg/dL (8.5-10.1) Test 06/26/18 08:12 Glucose (Fingerstick) 191 mg/dL (70-99) Nutrition Consultation Dietary Evaluation: Recommendations by RD: Protein supplementation Comments: Recommend glucerna TID Recommend 500mg Vit. C Q day Expected Outcomes/Goals: P.O. intake to meet >75% estimated needs Malnutrition Findings: Body Fat Depletion (Non Severe: Mild Depletion Weight Status: Appropriate SOREN AMIN MD Jun 26, 2018 10:36
[2018-06-26 11:00] VITALS: BP 141/65
--- NOTE | 2018-06-26 11:08 | PDOC ---
Infectious Disease Note Subjective Subjective Finished taking a walk with physical therapy Leg feels better Denies F/C/S/N/V/D/SOA Appetite fine ROS ROS per HPI otherwise neg Vital Sign Vital Signs Vital Signs Date Time Temp Pulse Resp B/P (MAP) Pulse Ox O2 Delivery O2 Flow Rate FiO2 06/26/18 08:18 68 152/62 06/26/18 08:00 97.4 18 99 Room Air 97.4 06/25/18 20:00 2.0 Physical Exam PHYSICAL EXAM GENERAL: Walking back to his chair with a walker, steady gait HEENT: LION, Oral cavity clear, dentures NECK: Supple. No JVD. LUNGS: Clear bilaterally. HEART: S1, S2. Pacemaker without signs of complication. ABDOMEN: Soft, nontender, nondistended. EXTREMITIES: Edema L>R, Less redness with elevation; superficial skin breakdown right [place] area. Onychomycosis. NEUROLOGIC: Alert and oriented x 3, grossly nonfocal. PIV Labs Lab Laboratory Tests Test 06/25/18 11:50 06/25/18 17:06 06/25/18 20:45 06/26/18 03:15 Glucose (Fingerstick) 201 mg/dL (70-99) 140 mg/dL (70-99) 193 mg/dL (70-99) Sodium Level 136 mmol/L (136-145) Potassium Level 3.6 mmol/L (3.5-5.1) Chloride Level 103 mmol/L (98-107) Carbon Dioxide Level 25 mmol/L (21-32) Anion Gap 8 (6-14) Blood Urea Nitrogen 29 mg/dL (8-26) Creatinine 1.6 mg/dL (0.7-1.3) Estimated GFR (Cockcroft-Gault) 41.0 Glucose Level 224 mg/dL (70-99) Calcium Level 7.8 mg/dL (8.5-10.1) Test 06/26/18 08:12 Glucose (Fingerstick) 191 mg/dL (70-99) Micro 06/22/18 Blood Culture - Preliminary, Resulted NO GROWTH AFTER 3 DAYS Objective Assessment Fever. resolved Leukocytosis, resolved Left lower extremity cellulitis, improving DVT LLE (US 06/07), Xarelto currently on hold ALON on CKD Peripheral arterial disease. Diabetes. Onychomycosis. 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 amiodarone therapy h/o PSAE in urine (pansensitive) Plan Plan of Care Zyvox/Zosyn - will wean after angiogram Micafungin since 06/25 Elevate left lower extremity. Monitor labs/temp LLE angiogram, possibly Wednesday Will need compression if no contraindication D/w nurse and d/w Attending Co-Sign Attending Co-Sign The patient was seen and interviewed as well as examined at the bedside. The chart was reviewed. The case was discussed. Agree with the plan of care. ANSELMO RODRÍGUEZ APRN Jun 26, 2018 11:08 VERO RAUSCH MD Jun 26, 2018 15:24
[2018-06-26] MEDS: glipiZIDE 5 MG TABLET PO SCH (12:32)
[2018-06-26 15:00] VITALS: BP 142/46
[2018-06-26 19:51] VITALS: BP 145/68
[2018-06-26] MEDS: TAMSULOSIN 0.4 MG CAP.ER.24H. PO SCH (20:54)
[2018-06-26 23:53] VITALS: BP 138/51
[2018-06-27] MEDS: PIPERACILLIN/TAZOBACTAM 2.25 GM in IV NORMAL SALINE 50ML 50 ML IV SCH ×4 (00:15→18:21)
[2018-06-27 03:19] VITALS: BP 150/65
[2018-06-27 07:15] VITALS: BP 147/61
[2018-06-27] MEDS: glipiZIDE 5 MG TABLET PO SCH (07:30)
[2018-06-27] MEDS: INSULIN LISPRO 300 UNITS/3 ML INSULN.PEN. SQ SCH ×4 (07:30→20:13)
[2018-06-27] MEDS: CARVEDILOL 6.25 MG TABLET. PO SCH ×2 (08:00→17:44)
[2018-06-27] MEDS: FERROUS SULFATE 325 MG TABLET. PO SCH (08:00)
[2018-06-27] MEDS ORDERED: IV NORMAL SALINE 1000ML BAG 1,000 ML IV SCH (08:30)
[2018-06-27 08:42] LABS: PROTHROMBIN TIME PATIENT 14.4 SEC (11.7-14.0)
[2018-06-27] MEDS: MICAFUNGIN 100 MG in IV DEXTROSE 5% 100ML 100 ML IV SCH (08:47)
--- NOTE | 2018-06-27 08:59 | PDOC ---
PROGRESS NOTES Subjective Subjective Patient reports few loose stools, no other complaints. Objective Objective Vital Signs Date Time Temp Pulse Resp B/P (MAP) Pulse Ox O2 Delivery O2 Flow Rate FiO2 06/27/18 07:15 98.0 66 18 147/61 (89) 98 Room Air 98.0 06/26/18 20:00 2.0 Intake and Output 06/27/18 07:00 Intake Total 250 ml Balance 250 ml Intake Oral 250 ml Physical Exam Abdomen: Normal bowel sounds, Soft, No tenderness Heart: Other (irregularly irregular, II/ systolic murmur) Extremities: Other (mild edema and erythema distal L LE) General: Alert, Oriented X3, No acute distress Lungs: Clear to auscultation Assessment Assessment Problems Medical Problems: (1) Cellulitis Status: Acute (2) Sepsis Status: Acute Plan Plan of Care 1. Sepsis with cellulitis L LE - much improved, continue tx per ID. 2. PVD - to have aortogram today for further eval and possible tx per IR. Had angio and stent placement L SFA last year. 3. chronic afib - rate controlled, on Lovenox now due to possible intervention. 4. systolic CHF - appears compensated on present medications. 5. CKD III - has been stable, check lab in AM. 6. DM2 - improving, continue Glipizide and SS. Metformin on hold. 7. HTN - fairly well controlled, continue his usual medications. Comment Review of Relevant I have reviewed the following items chelle (where applicable) has been applied. Labs Laboratory Tests Test 06/25/18 11:50 06/25/18 17:06 06/25/18 20:45 06/26/18 03:15 Glucose (Fingerstick) 201 mg/dL (70-99) 140 mg/dL (70-99) 193 mg/dL (70-99) Sodium Level 136 mmol/L (136-145) Potassium Level 3.6 mmol/L (3.5-5.1) Chloride Level 103 mmol/L (98-107) Carbon Dioxide Level 25 mmol/L (21-32) Anion Gap 8 (6-14) Blood Urea Nitrogen 29 mg/dL (8-26) Creatinine 1.6 mg/dL (0.7-1.3) Estimated GFR (Cockcroft-Gault) 41.0 Glucose Level 224 mg/dL (70-99) Calcium Level 7.8 mg/dL (8.5-10.1) Test 06/26/18 08:12 06/26/18 12:08 06/26/18 17:06 06/26/18 19:35 Glucose (Fingerstick) 191 mg/dL (70-99) 165 mg/dL (70-99) 95 mg/dL (70-99) 127 mg/dL (70-99) Test 06/27/18 07:23 06/27/18 08:10 Glucose (Fingerstick) 83 mg/dL (70-99) Prothrombin Time 14.4 SEC (11.7-14.0) Prothromb Time International Ratio 1.2 (0.8-1.1) Activated Partial Thromboplast Time 33 SEC (24-38) Laboratory Tests Test 06/26/18 12:08 06/26/18 17:06 06/26/18 19:35 06/27/18 07:23 Glucose (Fingerstick) 165 mg/dL (70-99) 95 mg/dL (70-99) 127 mg/dL (70-99) 83 mg/dL (70-99) Test 06/27/18 08:10 Prothrombin Time 14.4 SEC (11.7-14.0) Prothromb Time International Ratio 1.2 (0.8-1.1) Activated Partial Thromboplast Time 33 SEC (24-38) Microbiology 06/22/18 Blood Culture - Preliminary, Resulted NO GROWTH AFTER 4 DAYS Medications Current Medications Acetaminophen (Tylenol) 650 mg 1X ONCE PO Last administered on 06/22/18at 19:05 ; Start 06/22/18 at 19:00; Stop 06/22/18 at 19:01; Status DC Sodium Chloride 1,000 ml @ 1,000 mls/hr 1X ONCE IV Last administered on at 19:06; Start 06/22/18 at 19:00; Stop 06/22/18 at 19:59; Status DC Sodium Chloride 1,000 ml @ 1,000 mls/hr 1X ONCE IV Last administered on at 19:36; Start 06/22/18 at 19:30; Stop 06/22/18 at 20:29; Status DC Piperacillin Sod/ Tazobactam Sod 4.5 gm/Sodium Chloride 100 ml @ 200 mls/hr 1X ONCE IV Last administered on 06/22/18at 20:08; Start 06/22/18 at 20:00; Stop 06/22/18 at 20:29; Status DC Vancomycin HCl (Vanco Per Pharmacy) 1 each 1X ONCE MC ; Start 06/22/18 at 21:45 ; Stop 06/22/18 at 22:21; Status DC Vancomycin HCl 1.5 gm/Sodium Chloride 500 ml @ 250 mls/hr 1X ONCE IV Last administered on 06/22/18at 22:06; Start 06/22/18 at 22:00; Stop 06/22/18 at 23:59 ; Status DC Aspirin (Aspirin) 300 mg ONCE ONCE SD Last administered on 06/22/18at 22:06; Start 06/22/18 at 22:00; Stop 06/22/18 at 22:01; Status DC Ondansetron HCl (Zofran) 4 mg PRN Q8HRS PRN IV NAUSEA/VOMITING; Start 06/22/18 at 22:15; Stop 06/23/18 at 22:14; Status DC Fentanyl Citrate (Fentanyl 2ml Vial) 50 mcg PRN Q1HR PRN IV PAIN; Start at 22:15; Stop 06/23/18 at 22:14; Status DC Acetaminophen (Tylenol) 650 mg PRN Q4HRS PRN PO FEVER; Start 06/22/18 at 22:15 ; Stop 06/23/18 at 22:14; Status DC Aspirin (Children'S Aspirin) 81 mg DAILY PO Last administered on 06/26/18at 08: 17; Start 06/23/18 at 09:00 Ferrous Sulfate (Feosol) 325 mg DAILYWBKFT PO Last administered on 06/26/18at 08 :16; Start 06/23/18 at 08:00 Losartan Potassium (Cozaar) 25 mg DAILY PO Last administered on 06/24/18 08:49 ; Start 06/23/18 at 09:00; Stop 06/25/18 at 08:45; Status DC Tamsulosin HCl (Flomax) 0.4 mg HS PO Last administered on 06/26/18 20:54; Start 06/23/18 at 21:00 Multivitamins (Thera M Plus) 1 tab DAILY PO Last administered on 06/26/18at 08: 18; Start 06/23/18 at 09:00 Rivaroxaban (Xarelto) 15 mg BIDWMEALS PO Last administered on 06/23/18at 17:08; Start 06/23/18 at 17:00; Stop 06/23/18 at 19:23; Status DC Piperacillin Sod/ Tazobactam Sod (Zosyn Per Pharmacy) 1 each PRN DAILY PRN MC SEE COMMENTS; Start 06/23/18 at 07:30 Piperacillin Sod/ Tazobactam Sod 2.25 gm/Sodium Chloride 50 ml @ 100 mls/hr Q6HRS IV Last administered on 06/27/18at 06:31; Start 06/23/18 at 08:00 Linezolid (Zyvox) 600 mg BID PO Last administered on 06/26/18at 20:54; Start at 09:00 Fluconazole (Diflucan) 100 mg DAILY PO Last administered on 06/25/18at 09:18; Start 06/23/18 at 09:00; Stop 06/25/18 at 13:24; Status DC Ascorbic Acid (Vitamin C) 500 mg DAILY PO Last administered on 06/26/18at 08:16 ; Start 06/23/18 at 11:30 Acetylcysteine (Mucomyst 20% Oral Solution) 600 mg BID PO Last administered on 06/25/18at 09:16; Start 06/23/18 at 14:00; Stop 06/25/18 at 13:59; Status DC Sodium Chloride 1,000 ml @ 100 mls/hr Q10H IV Last administered on 06/24/18at 13:17; Start 06/23/18 at 13:00; Stop 06/24/18 at 15:40; Status DC Furosemide (Lasix) 40 mg 1X ONCE IVP ; Start 06/23/18 at 13:00; Stop 06/23/18 at 13:01; Status DC Insulin Human Lispro (HumaLOG) 0-12 UNITS QIDACHS SQ Last administered on at 12:40; Start 06/23/18 at 16:30 Amiodarone HCl (Cordarone) 200 mg DAILY PO Last administered on 06/26/18at 08:18 ; Start 06/23/18 at 16:00 Carvedilol (Coreg) 6.25 mg BIDWMEALS PO Last administered on 06/26/18at 17:49; Start 06/23/18 at 17:00 Enoxaparin Sodium (Lovenox Per Pharmacy Treatment Dosing) 1 each PRN DAILY PRN MC SEE COMMENTS; Start 06/23/18 at 19:30 Enoxaparin Sodium (Lovenox 80mg Syringe) 70 mg HS SQ Last administered on at 20:33; Start 06/23/18 at 21:00 Furosemide (Lasix) 40 mg DAILY PO Last administered on 06/26/18at 08:16; Start 06/24/18 at 15:45 Losartan Potassium (Cozaar) 50 mg DAILY PO Last administered on 06/26/18at 08:18 ; Start 06/26/18 at 09:00 Micafungin Sodium 100 mg/Dextrose 100 ml @ 100 mls/hr Q24H IV Last administered on 06/27/18at 08:47; Start 06/26/18 at 09:00 Lactobacillus Rhamnosus (Culturelle) 1 cap BID PO Last administered on at 20:54; Start 06/25/18 at 21:00 Info (Anti-Coagulation Monitoring By Pharmacy) 1 each PRN DAILY PRN MC SEE COMMENTS Last administered on 06/25/18at 13:45; Start 06/25/18 at 13:45 Glipizide (Glucotrol) 5 mg DAILYAC PO Last administered on 06/26/18at 12:32; Start 06/26/18 at 11:30 Sodium Chloride 1,000 ml @ 75 mls/hr [id number] IV ; Start 06/27/18 at 08:30; Stop 06/27/18 at 21:49 Active Scripts Active Feosol (Ferrous Sulfate) 325 Mg Tablet 325 Mg PO DAILYWBKFT 30 Days Reported Tamsulosin Hcl 0.4 Mg Cap.er.24h 2 Cap PO HS Aspirin 81 Mg Tab.chew 1 Tab PO DAILY Metformin Hcl Er (Metformin Hcl) 500 Mg Tab.er.24h 500 Mg PO DAILYWBKFT Losartan Potassium (Losartan Potassium) 25 Mg Tablet 25 Mg PO DAILY Carvedilol 25 Mg Tablet 1 Tab PO BID Centrum Silver Tablet (Multivits-Min/Fa/Lycopene/Lut) 1 Each Tablet 1 Each PO DAILY Vitals/I & O Vital Sign - Last 24 Hours 06/26/18 06/26/18 06/26/18 06/26/18 11:00 15:00 17:49 19:51 Temp 98.2 97.8 97.7 98.2 97.8 97.7 Pulse 61 61 61 64 Resp 19 21 20 B/P (MAP) 141/65 (90) 142/46 (78) 142/46 145/68 (93) Pulse Ox 98 97 97 O2 Delivery Room Air Room Air Room Air 06/26/18 06/26/18 06/27/18 06/27/18 20:00 23:53 03:19 07:15 Temp 98.1 97.4 98.0 98.1 97.4 98.0 Pulse 65 65 66 Resp 20 20 18 B/P (MAP) 138/51 (80) 150/65 (93) 147/61 (89) Pulse Ox 99 97 98 O2 Delivery Room Air Room Air Room Air Room Air O2 Flow Rate 2.0 Intake and Output 06/26/18 06/26/18 06/27/18 15:00 23:00 07:00 Intake Total 250 ml Balance 250 ml Nutrition Consultation Dietary Evaluation: Recommendations by RD: Protein supplementation Comments: Recommend glucerna TID Recommend 500mg Vit. C Q day Expected Outcomes/Goals: P.O. intake to meet >75% estimated needs Malnutrition Findings: Body Fat Depletion (Non Severe: Mild Depletion Weight Status: Appropriate KRISTYN TSAI MD Jun 27, 2018 08:59
[2018-06-27] MEDS: LOSARTAN POTASSIUM 50 MG TABLET. PO SCH (09:00)
[2018-06-27] MEDS: ASCORBIC ACID 500 MG TABLET PO SCH (09:00)
[2018-06-27] MEDS: MULTIVITAMIN with MINERAL TABLET. PO SCH (09:00)
[2018-06-27] MEDS: AMIODARONE HCL 200 MG TABLET. PO SCH (09:00)
[2018-06-27] MEDS: ASPIRIN CHEWABLE 81 MG TABLET. PO SCH (09:00)
[2018-06-27] MEDS: LACTOBACILLUS RHAMNOSUS GG 1 CAPSULE. PO SCH ×2 (09:00→20:11)
[2018-06-27] MEDS: FUROSEMIDE 40 MG TABLET. PO SCH (09:00)
[2018-06-27] MEDS: LINEZOLID 600 MG TABLET PO SCH ×2 (09:00→20:12)
--- NOTE | 2018-06-27 09:25 | PDOC ---
Infectious Disease Note Subjective Subjective Slept well Leg feels better Denies F/C/S/N/V/D/SOA Appetite fine ROS ROS o/w neg Vital Sign Vital Signs Vital Signs Date Time Temp Pulse Resp B/P (MAP) Pulse Ox O2 Delivery O2 Flow Rate FiO2 06/27/18 07:15 98.0 66 18 147/61 (89) 98 Room Air 98.0 06/26/18 20:00 2.0 Physical Exam PHYSICAL EXAM GENERAL: In bed. NAD looks well HEENT: LION, Oral cavity clear, dentures NECK: Supple. No JVD. LUNGS: Clear bilaterally. HEART: S1, S2. Pacemaker without signs of complication. ABDOMEN: Soft, nontender, nondistended. EXTREMITIES: Edema L>R, Less redness with elevation; superficial skin breakdown right [place] area. Onychomycosis. NEUROLOGIC: Alert and oriented x 3, grossly nonfocal. PIV Labs Lab Laboratory Tests Test 06/26/18 12:08 06/26/18 17:06 06/26/18 19:35 06/27/18 07:23 Glucose (Fingerstick) 165 mg/dL (70-99) 95 mg/dL (70-99) 127 mg/dL (70-99) 83 mg/dL (70-99) Test 06/27/18 08:10 Prothrombin Time 14.4 SEC (11.7-14.0) Prothromb Time International Ratio 1.2 (0.8-1.1) Activated Partial Thromboplast Time 33 SEC (24-38) Micro Microbiology 06/22/18 Blood Culture - Preliminary, Resulted NO GROWTH AFTER 4 DAYS Objective Assessment Fever. resolved Leukocytosis, resolved Left lower extremity cellulitis, improving DVT LLE (US 06/07), Xarelto currently on hold ALON on CKD Peripheral arterial disease. Diabetes. Onychomycosis. 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 amiodarone therapy h/o PSAE in urine (pansensitive) Plan Plan of Care Cont Zyvox/Zosyn - will wean after angiogram Micafungin since 06/25 Elevate left lower extremity. Monitor labs/temp LLE angiogram, possibly Wednesday Will need compression if no contraindication D/w nurse and d/w D/w VERO Henriquez MD Jun 27, 2018 09:25
[2018-06-27] MEDS: ANTI-COAG MONITOR BY PHARMACY. MC PRN (11:04)
[2018-06-27 11:20] VITALS: BP 97/74
[2018-06-27] MEDS ORDERED: HEPARIN for ARTERIAL LINE 1,500 ML ONE (14:20)
[2018-06-27] MEDS ORDERED: IODIXANOL 320 MG/ML 100 ML VIAL. ONE (14:20)
[2018-06-27] MEDS ORDERED: LIDOCAINE WITH 8.4% SOD BICARB 3 ML DISP.SYRIN. ONE (14:20)
[2018-06-27] MEDS ORDERED: MIDAZOLAM HCL/PF 5 MG/5 ML VIAL. ONE (14:59)
[2018-06-27] MEDS ORDERED: fentaNYL PF VIAL 250 MCG/5 ML VIAL ONE (14:59)
[2018-06-27] MEDS ORDERED: HEPARIN for IV BOLUS 10,000 UNIT/10 ML VIAL. ONE (14:59)
--- NOTE | 2018-06-27 15:03 | NUR ---
SW following pt. Discussed about SNU and options with pt, pt's and son in room. They are all agreeable with [facility]. RODRIGO phoned and faxed referral to [facility]. Pt admission and acceptance pending. Will continue to follow. Discussed with RN.
[2018-06-27] MEDS ORDERED: fentaNYL PF VIAL 250 MCG/5 ML VIAL IV ONE (15:15)
[2018-06-27] MEDS ORDERED: LIDOCAINE WITH 8.4% SOD BICARB 3 ML DISP.SYRIN. IJ ONE (15:15)
[2018-06-27] MEDS ORDERED: MIDAZOLAM HCL/PF 5 MG/5 ML VIAL. IV ONE (15:15)
[2018-06-27] MEDS ORDERED: IODIXANOL 320 MG/ML 100 ML VIAL. IART ONE (15:15)
[2018-06-27] MEDS ORDERED: CONTRAST GIVEN. MC PRN (15:15)
[2018-06-27 16:12] VITALS: BP 188/73
[2018-06-27] MEDS ORDERED: HEPARIN for IV BOLUS 10,000 UNIT/10 ML VIAL. IV ONE (16:15)
--- NOTE | 2018-06-27 16:17 | PDOC ---
Provider Note Provider Note IR NOTE LLE angiogram today Recurrent left sfa stenosis, treated with stent placement. good result. Left COMPUTATIONAL MATHEMATICIAN stenosis , treated with angioplasty, good result. No immediate complications. CO2 and only 21 cc of contrast used during case. SHEREEN VICENTE MD Jun 27, 2018 16:17
[2018-06-27 19:46] VITALS: BP 143/55
[2018-06-27] MEDS: TAMSULOSIN 0.4 MG CAP.ER.24H. PO SCH (20:12)
[2018-06-27 23:53] VITALS: BP 153/57
[2018-06-28] MEDS: PIPERACILLIN/TAZOBACTAM 2.25 GM in IV NORMAL SALINE 50ML 50 ML IV SCH ×3 (00:29→11:27)
[2018-06-28] MEDS: HYDROcodone/APAP 5/325MG 1 TAB TABLET PO PRN ×2 (00:58→06:39)
[2018-06-28 03:00] VITALS: BP 136/52
[2018-06-28 05:22] LABS: BASO % 0 % (0-3); EOS # 0.2 x10^3/uL (0.0-0.7); EOS % 3 % (0-3); HEMATOCRIT 28.4 % (39.0-53.0); HEMOGLOBIN 9.3 g/dL (13.0-17.5); LYMPH % 17 % (24-48); MEAN CORPUSCULAR HEMOGLOBIN 29 pg (25-35); MEAN CORPUSCULAR HGB CONC 33 g/dL (31-37); MEAN CORPUSCULAR VOLUME 87 fL (79-100); MONO # 0.4 x10^3/uL (0.0-1.1); MONO % 7 % (0-9); NEUT # 4.5 x10^3uL (1.8-7.7); NEUT % 73 % (31-73); PLATELET COUNT 235 x10^3/uL (140-400); RED BLOOD COUNT 3.25 x10^6/uL (4.30-5.70); RED CELL DISTRIBUTION WIDTH 13.9 % (11.5-14.5); WHITE BLOOD COUNT 6.1 x10^3/uL (4.0-11.0)
[2018-06-28 05:51] LABS: CREATININE 1.5 mg/dL (0.7-1.3); GFR 44.2; POTASSIUM 3.7 mmol/L (3.5-5.1)
[2018-06-28 07:00] VITALS: BP 153/45
[2018-06-28] MEDS: INSULIN LISPRO 300 UNITS/3 ML INSULN.PEN. SQ SCH ×3 (07:30→16:30)
[2018-06-28] MEDS: CARVEDILOL 6.25 MG TABLET. PO SCH ×2 (08:19→17:00)
[2018-06-28] MEDS: FUROSEMIDE 40 MG TABLET. PO SCH (08:20)
[2018-06-28] MEDS: glipiZIDE 5 MG TABLET PO SCH (08:20)
[2018-06-28] MEDS: ASCORBIC ACID 500 MG TABLET PO SCH (08:20)
[2018-06-28] MEDS: FERROUS SULFATE 325 MG TABLET. PO SCH (08:20)
[2018-06-28] MEDS: LINEZOLID 600 MG TABLET PO SCH (08:20)
[2018-06-28] MEDS: MULTIVITAMIN with MINERAL TABLET. PO SCH (08:20)
[2018-06-28] MEDS: AMIODARONE HCL 200 MG TABLET. PO SCH (08:21)
[2018-06-28] MEDS: ASPIRIN CHEWABLE 81 MG TABLET. PO SCH (08:21)
[2018-06-28] MEDS: MICAFUNGIN 100 MG in IV DEXTROSE 5% 100ML 100 ML IV SCH (08:22)
[2018-06-28] MEDS: LOSARTAN POTASSIUM 50 MG TABLET. PO SCH (08:23)
[2018-06-28] MEDS: LACTOBACILLUS RHAMNOSUS GG 1 CAPSULE. PO SCH (08:24)
[2018-06-28] MEDS ORDERED: FURO20TA3 PO (09:16)
[2018-06-28] MEDS ORDERED: RIVA15TA PO (09:16)
[2018-06-28] MEDS ORDERED: AMIO200T4 PO (09:16)
--- NOTE | 2018-06-28 09:21 | PDOC ---
PROGRESS NOTES Subjective Subjective Patient without complaint, denies pain in L LE. Objective Objective Vital Signs Date Time Temp Pulse Resp B/P (MAP) Pulse Ox O2 Delivery O2 Flow Rate FiO2 06/28/18 08:23 64 153/45 06/28/18 07:39 97 Room Air 2.0 06/28/18 07:00 97.7 18 97.7 Intake and Output 06/28/18 07:00 Intake Total 200 ml Balance 200 ml Intake Oral 200 ml Physical Exam Abdomen: Normal bowel sounds, Soft, No tenderness Heart: Regular rate, Other (II/ systolic murmur) Extremities: Other (mild edema and erythema L LE) General: Alert, Oriented X3 (forgetful of his medications, etc.), No acute distress Lungs: Clear to auscultation Assessment Assessment Problems Medical Problems: (1) Cellulitis Status: Acute (2) Sepsis Status: Acute Plan Plan of Care 1. Sepsis with cellulitis L LE - much improved, home today on po abx per ID. 2. 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 3. chronic afib - rate controlled, home on present medication, resume Xarelto at renal dose. 4. CKD III - stable on lab. 5. CHF - stable, home on his usual medications. 6. DM2 - home on Metformin, resume tomorrow. 7. HTN - controlled. Comment Review of Relevant I have reviewed the following items chelle (where applicable) has been applied. Labs Laboratory Tests Test 06/26/18 12:08 06/26/18 17:06 06/26/18 19:35 06/27/18 07:23 Glucose (Fingerstick) 165 mg/dL (70-99) 95 mg/dL (70-99) 127 mg/dL (70-99) 83 mg/dL (70-99) Test 06/27/18 08:10 06/27/18 11:49 06/27/18 16:51 06/27/18 20:12 Prothrombin Time 14.4 SEC (11.7-14.0) Prothromb Time International Ratio 1.2 (0.8-1.1) Activated Partial Thromboplast Time 33 SEC (24-38) Glucose (Fingerstick) 156 mg/dL (70-99) 106 mg/dL (70-99) 115 mg/dL (70-99) Test 06/28/18 05:00 06/28/18 07:15 White Blood Count 6.1 x10^3/uL (4.0-11.0) Red Blood Count 3.25 x10^6/uL (4.30-5.70) Hemoglobin 9.3 g/dL (13.0-17.5) Hematocrit 28.4 % (39.0-53.0) Mean Corpuscular Volume 87 fL (79-100) Mean Corpuscular Hemoglobin 29 pg (25-35) Mean Corpuscular Hemoglobin Concent 33 g/dL (31-37) Red Cell Distribution Width 13.9 % (11.5-14.5) Platelet Count 235 x10^3/uL (140-400) Neutrophils (%) (Auto) 73 % (31-73) Lymphocytes (%) (Auto) 17 % (24-48) Monocytes (%) (Auto) 7 % (0-9) Eosinophils (%) (Auto) 3 % (0-3) Basophils (%) (Auto) 0 % (0-3) Neutrophils # (Auto) 4.5 x10^3uL (1.8-7.7) Lymphocytes # (Auto) 1.0 x10^3/uL (1.0-4.8) Monocytes # (Auto) 0.4 x10^3/uL (0.0-1.1) Eosinophils # (Auto) 0.2 x10^3/uL (0.0-0.7) Basophils # (Auto) 0.0 x10^3/uL (0.0-0.2) Sodium Level 139 mmol/L (136-145) Potassium Level 3.7 mmol/L (3.5-5.1) Chloride Level 106 mmol/L (98-107) Carbon Dioxide Level 22 mmol/L (21-32) Anion Gap 11 (6-14) Blood Urea Nitrogen 23 mg/dL (8-26) Creatinine 1.5 mg/dL (0.7-1.3) Estimated GFR (Cockcroft-Gault) 44.2 Glucose Level 208 mg/dL (70-99) Calcium Level 8.0 mg/dL (8.5-10.1) Glucose (Fingerstick) 132 mg/dL (70-99) Laboratory Tests Test 06/27/18 11:49 06/27/18 16:51 06/27/18 20:12 06/28/18 05:00 Glucose (Fingerstick) 156 mg/dL (70-99) 106 mg/dL (70-99) 115 mg/dL (70-99) White Blood Count 6.1 x10^3/uL (4.0-11.0) Red Blood Count 3.25 x10^6/uL (4.30-5.70) Hemoglobin 9.3 g/dL (13.0-17.5) Hematocrit 28.4 % (39.0-53.0) Mean Corpuscular Volume 87 fL (79-100) Mean Corpuscular Hemoglobin 29 pg (25-35) Mean Corpuscular Hemoglobin Concent 33 g/dL (31-37) Red Cell Distribution Width 13.9 % (11.5-14.5) Platelet Count 235 x10^3/uL (140-400) Neutrophils (%) (Auto) 73 % (31-73) Lymphocytes (%) (Auto) 17 % (24-48) Monocytes (%) (Auto) 7 % (0-9) Eosinophils (%) (Auto) 3 % (0-3) Basophils (%) (Auto) 0 % (0-3) Neutrophils # (Auto) 4.5 x10^3uL (1.8-7.7) Lymphocytes # (Auto) 1.0 x10^3/uL (1.0-4.8) Monocytes # (Auto) 0.4 x10^3/uL (0.0-1.1) Eosinophils # (Auto) 0.2 x10^3/uL (0.0-0.7) Basophils # (Auto) 0.0 x10^3/uL (0.0-0.2) Sodium Level 139 mmol/L (136-145) Potassium Level 3.7 mmol/L (3.5-5.1) Chloride Level 106 mmol/L (98-107) Carbon Dioxide Level 22 mmol/L (21-32) Anion Gap 11 (6-14) Blood Urea Nitrogen 23 mg/dL (8-26) Creatinine 1.5 mg/dL (0.7-1.3) Estimated GFR (Cockcroft-Gault) 44.2 Glucose Level 208 mg/dL (70-99) Calcium Level 8.0 mg/dL (8.5-10.1) Test 06/28/18 07:15 Glucose (Fingerstick) 132 mg/dL (70-99) Microbiology 06/22/18 Blood Culture - Final, Complete NO GROWTH AFTER 5 DAYS Medications Current Medications Acetaminophen (Tylenol) 650 mg 1X ONCE PO Last administered on 06/22/18at 19:05 ; Start 06/22/18 at 19:00; Stop 06/22/18 at 19:01; Status DC Sodium Chloride 1,000 ml @ 1,000 mls/hr 1X ONCE IV Last administered on at 19:06; Start 06/22/18 at 19:00; Stop 06/22/18 at 19:59; Status DC Sodium Chloride 1,000 ml @ 1,000 mls/hr 1X ONCE IV Last administered on at 19:36; Start 06/22/18 at 19:30; Stop 06/22/18 at 20:29; Status DC Piperacillin Sod/ Tazobactam Sod 4.5 gm/Sodium Chloride 100 ml @ 200 mls/hr 1X ONCE IV Last administered on 06/22/18at 20:08; Start 06/22/18 at 20:00; Stop 06/22/18 at 20:29; Status DC Vancomycin HCl (Vanco Per Pharmacy) 1 each 1X ONCE MC ; Start 06/22/18 at 21:45 ; Stop 06/22/18 at 22:21; Status DC Vancomycin HCl 1.5 gm/Sodium Chloride 500 ml @ 250 mls/hr 1X ONCE IV Last administered on 06/22/18at 22:06; Start 06/22/18 at 22:00; Stop 06/22/18 at 23:59 ; Status DC Aspirin (Aspirin) 300 mg ONCE ONCE RI Last administered on 06/22/18at 22:06; Start 06/22/18 at 22:00; Stop 06/22/18 at 22:01; Status DC Ondansetron HCl (Zofran) 4 mg PRN Q8HRS PRN IV NAUSEA/VOMITING; Start 06/22/18 at 22:15; Stop 06/23/18 at 22:14; Status DC Fentanyl Citrate (Fentanyl 2ml Vial) 50 mcg PRN Q1HR PRN IV PAIN; Start at 22:15; Stop 06/23/18 at 22:14; Status DC Acetaminophen (Tylenol) 650 mg PRN Q4HRS PRN PO FEVER; Start 06/22/18 at 22:15 ; Stop 06/23/18 at 22:14; Status DC Aspirin (Children'S Aspirin) 81 mg DAILY PO Last administered on 06/28/18 08:21 ; Start 06/23/18 at 09:00 Ferrous Sulfate (Feosol) 325 mg DAILYWBKFT PO Last administered on 06/28/18 08: 20; Start 06/23/18 at 08:00 Losartan Potassium (Cozaar) 25 mg DAILY PO Last administered on 06/24/18 08:49 ; Start 06/23/18 at 09:00; Stop 06/25/18 at 08:45; Status DC Tamsulosin HCl (Flomax) 0.4 mg HS PO Last administered on 06/27/18 20:12; Start 06/23/18 at 21:00 Multivitamins (Thera M Plus) 1 tab DAILY PO Last administered on 06/28/18 08:20 ; Start 06/23/18 at 09:00 Rivaroxaban (Xarelto) 15 mg BIDWMEALS PO Last administered on 06/23/18 17:08; Start 06/23/18 at 17:00; Stop 06/23/18 at 19:23; Status DC Piperacillin Sod/ Tazobactam Sod (Zosyn Per Pharmacy) 1 each PRN DAILY PRN MC SEE COMMENTS; Start 06/23/18 at 07:30 Piperacillin Sod/ Tazobactam Sod 2.25 gm/Sodium Chloride 50 ml @ 100 mls/hr Q6HRS IV Last administered on 06/28/18 06:41; Start 06/23/18 at 08:00 Linezolid (Zyvox) 600 mg BID PO Last administered on 06/28/18 08:20; Start at 09:00 Fluconazole (Diflucan) 100 mg DAILY PO Last administered on 06/25/18 09:18; Start 06/23/18 at 09:00; Stop 06/25/18 at 13:24; Status DC Ascorbic Acid (Vitamin C) 500 mg DAILY PO Last administered on 06/28/18 08:20; Start 06/23/18 at 11:30 Acetylcysteine (Mucomyst 20% Oral Solution) 600 mg BID PO Last administered on 06/25/18 09:16; Start 06/23/18 at 14:00; Stop 06/25/18 at 13:59; Status DC Sodium Chloride 1,000 ml @ 100 mls/hr Q10H IV Last administered on 06/24/18 13:17; Start 06/23/18 at 13:00; Stop 06/24/18 at 15:40; Status DC Furosemide (Lasix) 40 mg 1X ONCE IVP ; Start 06/23/18 at 13:00; Stop 06/23/18 at 13:01; Status DC Insulin Human Lispro (HumaLOG) 0-12 UNITS QIDACHS SQ Last administered on at 12:40; Start 06/23/18 at 16:30 Amiodarone HCl (Cordarone) 200 mg DAILY PO Last administered on 06/28/18 08:21 ; Start 06/23/18 at 16:00 Carvedilol (Coreg) 6.25 mg BIDWMEALS PO Last administered on 06/28/18 08:19; Start 06/23/18 at 17:00 Enoxaparin Sodium (Lovenox Per Pharmacy Treatment Dosing) 1 each PRN DAILY PRN MC SEE COMMENTS; Start 06/23/18 at 19:30 Enoxaparin Sodium (Lovenox 80mg Syringe) 70 mg HS SQ Last administered on 20:16; Start 06/23/18 at 21:00 Furosemide (Lasix) 40 mg DAILY PO Last administered on 06/28/18 08:20; Start at 15:45 Losartan Potassium (Cozaar) 50 mg DAILY PO Last administered on 06/28/18 08:23 ; Start 06/26/18 at 09:00 Micafungin Sodium 100 mg/Dextrose 100 ml @ 100 mls/hr Q24H IV Last administered on 06/28/18 08:22; Start 06/26/18 at 09:00 Lactobacillus Rhamnosus (Culturelle) 1 cap BID PO Last administered on 08:24; Start 06/25/18 at 21:00 Info (Anti-Coagulation Monitoring By Pharmacy) 1 each PRN DAILY PRN MC SEE COMMENTS Last administered on 06/27/18at 11:04; Start 06/25/18 at 13:45 Glipizide (Glucotrol) 5 mg DAILYAC PO Last administered on 06/28/18at 08:20; Start 06/26/18 at 11:30 Sodium Chloride 1,000 ml @ 75 mls/hr [id number] IV Last administered on 06/27/18at 08:30; Start 06/27/18 at 08:30; Stop 06/27/18 at 21:49; Status DC Iodixanol (Visipaque 320) 100 ml STK-MED ONCE .ROUTE ; Start 06/27/18 at 14:20; Stop 06/27/18 at 14:21; Status DC Lidocaine/Sodium Bicarbonate (Buffered Lidocaine 1%) 3 ml STK-MED ONCE .ROUTE ; Start 06/27/18 at 14:20; Stop 06/27/18 at 14:21; Status DC Heparin Sodium/ Sodium Chloride 1,500 ml @ As Directed STK-MED ONCE .ROUTE ; Start 06/27/18 at 14:20; Stop 06/27/18 at 14:21; Status DC Midazolam HCl (Versed) 5 mg STK-MED ONCE .ROUTE ; Start 06/27/18 at 14:59; Stop 06/27/18 at 15:00; Status DC Fentanyl Citrate (Fentanyl 5ml Vial) 250 mcg STK-MED ONCE .ROUTE ; Start at 14:59; Stop 06/27/18 at 15:00; Status DC Heparin Sodium (Porcine) (Heparin Sodium) 10,000 unit STK-MED ONCE .ROUTE ; Start 06/27/18 at 14:59; Stop 06/27/18 at 15:00; Status DC Heparin Sodium/ Sodium Chloride (HEPARIN for ARTERIAL LINE FLUSH) 2,000 unit 1X ONCE IART Last administered on 06/27/18at 16:07; Start 06/27/18 at 15:15; Stop 06/27/18 at 15:16; Status DC Heparin Sodium/ Sodium Chloride (HEPARIN for ARTERIAL LINE FLUSH) 1,000 unit 1X ONCE IART Last administered on 06/27/18at 16:08; Start 06/27/18 at 15:15; Stop 06/27/18 at 15:16; Status DC Lidocaine/Sodium Bicarbonate (Buffered Lidocaine 1%) 3 ml 1X ONCE IJ Last administered on 06/27/18at 16:07; Start 06/27/18 at 15:15; Stop 06/27/18 at 15:16; Status DC Midazolam HCl (Versed) 5 mg 1X ONCE IV Last administered on 06/27/18at 16:08; Start 06/27/18 at 15:15; Stop 06/27/18 at 15:16; Status DC Fentanyl Citrate (Fentanyl 5ml Vial) 100 mcg 1X ONCE IV Last administered on at 16:09; Start 06/27/18 at 15:15; Stop 06/27/18 at 15:16; Status DC Iodixanol (Visipaque 320) 100 ml 1X ONCE IART Last administered on 06/27/18at 15 :15; Start 06/27/18 at 15:15; Stop 06/27/18 at 15:16; Status DC Info (CONTRAST GIVEN -- Rx MONITORING) 1 each PRN DAILY PRN MC SEE COMMENTS; Start 06/27/18 at 15:15; Stop 06/29/18 at 15:14 Heparin Sodium (Porcine) (Heparin Sodium) 5,000 unit 1X ONCE IV Last administered on 06/27/18at 16:10; Start 06/27/18 at 16:15; Stop 06/27/18 at 16:16; Status DC Acetaminophen/ Hydrocodone Bitart (Lortab 5/325) 1 tab PRN Q6HRS PRN PO MODERATE PAIN Last administered on 06/28/18at 06:39; Start 06/28/18 at 00:45 Active Scripts Active Furosemide 20 Mg Tablet 1 Tab PO DAILY 30 Days Xarelto (Rivaroxaban) 15 Mg Tablet 15 Mg PO DAILY 30 Days Amiodarone Hcl 200 Mg Tablet 1 Tab PO DAILY Feosol (Ferrous Sulfate) 325 Mg Tablet 325 Mg PO DAILYWBKFT 30 Days Reported Tamsulosin Hcl 0.4 Mg Cap.er.24h 2 Cap PO HS Aspirin 81 Mg Tab.chew 1 Tab PO DAILY Metformin Hcl Er (Metformin Hcl) 500 Mg Tab.er.24h 500 Mg PO DAILYWBKFT Losartan Potassium (Losartan Potassium) 25 Mg Tablet 25 Mg PO DAILY Carvedilol 25 Mg Tablet 1 Tab PO BID Centrum Silver Tablet (Multivits-Min/Fa/Lycopene/Lut) 1 Each Tablet 1 Each PO DAILY Vitals/I & O Vital Sign - Last 24 Hours 06/27/18 06/27/18 06/27/18 06/27/18 11:20 16:09 16:12 17:44 Temp 97.6 97.6 Pulse 71 67 Resp 20 13 15 B/P (MAP) 97/74 (82) 167/69 Pulse Ox 95 100 100 O2 Delivery Room Air Nasal Cannula Nasal Cannula O2 Flow Rate 2.0 2.0 06/27/18 06/27/18 06/27/18 06/28/18 19:46 20:00 23:53 00:58 Temp 98.2 98.8 98.2 98.8 Pulse 63 71 Resp 16 16 B/P (MAP) 143/55 (84) 153/57 (89) Pulse Ox 99 98 O2 Delivery Room Air Room Air Room Air Room Air 06/28/18 06/28/18 06/28/18 06/28/18 03:00 06:39 07:00 07:39 Temp 98.8 97.7 98.8 97.7 Pulse 72 64 Resp 16 18 B/P (MAP) 136/52 (80) 153/45 (81) Pulse Ox 97 94 97 O2 Delivery Room Air Room Air Room Air Room Air O2 Flow Rate 2.0 06/28/18 06/28/18 06/28/18 08:19 08:21 08:23 Pulse 64 64 64 B/P (MAP) 153/45 153/45 153/45 Intake and Output 06/27/18 06/27/18 06/28/18 15:00 23:00 07:00 Intake Total 100 ml 100 ml Balance 100 ml 100 ml Nutrition Consultation Dietary Evaluation: Recommendations by RD: Protein supplementation Comments: Recommend glucerna TID Recommend 500mg Vit. C Q day Expected Outcomes/Goals: P.O. intake to meet >75% estimated needs Malnutrition Findings: Body Fat Depletion (Non Severe: Mild Depletion Weight Status: Appropriate KRISTYN TSAI MD Jun 28, 2018 09:21
--- NOTE | 2018-06-28 09:26 | NUR ---
Per Dr. Baron, wait to discharge until after Dr. Tirado rounds and prescribes oral antibiotics.
[2018-06-28] MEDS ORDERED: METF500T9 PO (09:28)
--- NOTE | 2018-06-28 10:21 | PDOC ---
Infectious Disease Note Subjective Subjective Slept well Leg feels better Denies F/C/S/N/V/D/SOA Appetite fine ROS ROS o/w neg Vital Sign Vital Signs Vital Signs Date Time Temp Pulse Resp B/P (MAP) Pulse Ox O2 Delivery O2 Flow Rate FiO2 06/28/18 08:23 64 153/45 06/28/18 07:39 97 Room Air 2.0 06/28/18 07:00 97.7 18 97.7 Physical Exam PHYSICAL EXAM GENERAL: In bed. NAD looks well HEENT: LION, Oral cavity clear, dentures NECK: Supple. No JVD. LUNGS: Clear bilaterally. HEART: S1, S2. Pacemaker without signs of complication. ABDOMEN: Soft, nontender, nondistended. EXTREMITIES: Edema L>R, Less redness ; superficial skin breakdown right [place] area. Onychomycosis. NEUROLOGIC: Alert and oriented x 3, grossly nonfocal. PIV Labs Lab Laboratory Tests Test 06/27/18 11:49 06/27/18 16:51 06/27/18 20:12 06/28/18 05:00 Glucose (Fingerstick) 156 mg/dL (70-99) 106 mg/dL (70-99) 115 mg/dL (70-99) White Blood Count 6.1 x10^3/uL (4.0-11.0) Red Blood Count 3.25 x10^6/uL (4.30-5.70) Hemoglobin 9.3 g/dL (13.0-17.5) Hematocrit 28.4 % (39.0-53.0) Mean Corpuscular Volume 87 fL (79-100) Mean Corpuscular Hemoglobin 29 pg (25-35) Mean Corpuscular Hemoglobin Concent 33 g/dL (31-37) Red Cell Distribution Width 13.9 % (11.5-14.5) Platelet Count 235 x10^3/uL (140-400) Neutrophils (%) (Auto) 73 % (31-73) Lymphocytes (%) (Auto) 17 % (24-48) Monocytes (%) (Auto) 7 % (0-9) Eosinophils (%) (Auto) 3 % (0-3) Basophils (%) (Auto) 0 % (0-3) Neutrophils # (Auto) 4.5 x10^3uL (1.8-7.7) Lymphocytes # (Auto) 1.0 x10^3/uL (1.0-4.8) Monocytes # (Auto) 0.4 x10^3/uL (0.0-1.1) Eosinophils # (Auto) 0.2 x10^3/uL (0.0-0.7) Basophils # (Auto) 0.0 x10^3/uL (0.0-0.2) Sodium Level 139 mmol/L (136-145) Potassium Level 3.7 mmol/L (3.5-5.1) Chloride Level 106 mmol/L (98-107) Carbon Dioxide Level 22 mmol/L (21-32) Anion Gap 11 (6-14) Blood Urea Nitrogen 23 mg/dL (8-26) Creatinine 1.5 mg/dL (0.7-1.3) Estimated GFR (Cockcroft-Gault) 44.2 Glucose Level 208 mg/dL (70-99) Calcium Level 8.0 mg/dL (8.5-10.1) Test 06/28/18 07:15 Glucose (Fingerstick) 132 mg/dL (70-99) Micro Microbiology 06/22/18 Blood Culture - Preliminary, Resulted NO GROWTH AFTER 4 DAYS Objective Assessment S/p LLE angioplasty and stent 06/27 Fever. resolved Leukocytosis, resolved Left lower extremity cellulitis, improving DVT LLE (US 06/07), Xarelto currently on hold ALON on CKD Peripheral arterial disease. Diabetes. Onychomycosis. 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 amiodarone therapy h/o PSAE in urine (pansensitive) Plan Plan of Care Discont Zyvox/Zosyn /Micafungin since 06/25 Home on augmentin 500 mg BID for 3 days Rx written F/u primary D/w nurse and d/w VERO RAUSCH MD Jun 28, 2018 10:21
[2018-06-28 11:00] VITALS: BP 113/58
--- NOTE | 2018-06-28 11:33 | NUR ---
Patient's son (stated he was DPOA) and was transferred to social studies department chair regarding question of discharge to Skilled Facility vs. Home. We will await the answer before discharging patient.
--- NOTE | 2018-06-28 12:38 | NUR ---
SW following pt. Discussed with Nelda at and they are not able to take pt as he is walking 500+ feet. Spoke with pt and in room who report they want to go home but also don't mind going to rehab. Discussed with pt's son via phone. Pt's son reported he was wanting to see if pt can stay in SNU until be can finish moving pt and to prison apartment in two weeks. SW discussed dc order is placed to home with self care and Son is concerned for pt going home at home at this time. SW spoke with Darin at [facility] and they are able to accept pt. Pt's son agreeable with pt going to [facility] but wants to discuss with pt and pt's first. RN aware. Will continue to follow.
[2018-06-28] MEDS ORDERED: AMOX1TAB58 PO (12:42)
--- NOTE | 2018-06-28 15:25 | NUR ---
RODRIGO spoke with son and they have decided to go home with self care. Discussed with RN. Addendum: 06/28/18 at 1525 by ROMERO WALLACE Son will come to rock picker pt.
[2018-06-28] MEDS ORDERED: RIVAROXABAN 15 MG TABLET. PO SCH (17:00)
--- NOTE | 2018-06-28 17:20 | NUR ---
Telephone call confirmation from social services counselor to Discharge to Home (instead of [facility]). Wound care photographs and cares are complete. Patient is getting dressed and awaiting ride.
--- NOTE | 2018-06-28 17:33 | DS ---
DATE OF DISCHARGE: 06/28/2018 CHIEF COMPLAINT: Mental status changes. HISTORY OF PRESENT ILLNESS: The patient is an 87-year-old male who was brought to the Emergency Room with the above complaint. The family noted that he had become increasingly confused. He had a fever of 101.3 at home. Initial evaluation in the Emergency Room showed the patient to have evidence of sepsis and cellulitis of the left lower extremity. Treatment was begun and he was admitted for further care. HOSPITAL COURSE: The patient was seen in consultation by Infectious Disease, Cardiology and Interventional Radiology. He was started on broad spectrum antibiotics for treatment of his cellulitis per Infectious Disease recommendations. The patient's mental status quickly improved and he returned to his baseline where he is alert and oriented, although mildly forgetful. His cellulitis in his left lower leg is much improved clinically. Cardiology felt that patient was experiencing an acute exacerbation of his chronic systolic congestive heart failure. Medications were adjusted and he now appears to be well compensated. He has chronic atrial fibrillation, but his rate is controlled. The patient had been started on Xarelto due to his chronic AFib. This was held at admission for possible intervention on his peripheral vascular disease. On 06/27/2018, he had a left lower extremity angiogram. This showed recurrent left SFA stenosis, which was treated with stent placement by Dr Decker. He also had left CASING PULLER stenosis, which was treated with angioplasty. The patient denied further pain in his leg after this treatment. The patient has chronic kidney disease stage 3, which was stable on lab. He has diabetes and apparently was taking metformin for this. His A1c was checked and was elevated at 9.1. It is unclear if he is on another medication for his diabetes besides the metformin as the patient is forgetful of his medications. This will be followed by Dr. Minaya as an outpatient. The patient had some debility noted and was seen by physical and occupational therapy. He has had good improvement in his mobility and was able to walk 500 feet with a roller walker and minimum assistance. penitentiary was considered for him, but it appears he does not meet the criteria for this. Discharge plans were discussed with the patient, his and his son and the social services manager was also involved for help with this. It was eventually decided that the patient would be able to return home with his and assistance of other family members. He will be discharged with a prescription for 3 days of Augmentin per Infectious Disease recommendations. FINAL DIAGNOSES: 1. Sepsis. 2. Cellulitis, left lower extremity. 3. Peripheral vascular disease, left lower extremity. 4. Chronic atrial fibrillation. 5. Chronic kidney disease stage 3. 6. Systolic congestive heart failure with acute exacerbation. 7. Diabetes mellitus type 2. 8. Hypertension. DISCHARGE MEDICATIONS: Augmentin 500 one p.o. b.i.d. x 3 days, amiodarone 200 mg daily, aspirin 81 mg daily, carvedilol 25 mg b.i.d., iron 325 mg daily, furosemide 20 mg daily, losartan 25 mg daily, Xarelto 15 mg daily, Flomax 0.4 mg 2 tablets at bedtime. Continue metformin extended release 500 mg daily. FOLLOWUP: Followup is with Dr. Minaya within 2 weeks. KRISTYN TSAI MD DR: JUSTO/iggy JOB#: [id number] / [id number] MELITON
--- NOTE | 2018-06-28 17:57 | NUR ---
Patient discharged via wheelchair to private vehicle, in stable condition.
--- NOTE | 2018-06-29 13:07 | RAD ---
4.1.19 1. Pelvic angiography with CO2 2. Left lower extremity angiography with CO2 and dilute contrast 3. Balloon angioplasty of the left posterior tibial artery 4. Placement of self-expanding stent, mid left superficial femoral artery Indication: 79-year-old male with left lower extremity nonhealing wounds and cellulitis Discussion: The risks and benefits of the procedure were discussed the patient. Informed consent was obtained. A timeout procedure was performed. The right groin was prepped and draped using sterile barrier technique. Ultrasound demonstrates the right common femoral vein to be calcified patent. The right common femoral artery was accessed using direct ultrasound guidance. Reference images were saved the medical record. A 5 Mongolian vascular sheath was placed. A catheter was advanced into the abdominal aorta. CO2 angiography of the pelvis was performed redemonstrating small caliber iliac vessels without evidence of flow-limiting stenosis. The aortic bifurcation was crossed. Angiograms of the left lower extremity demonstrate recurrent high-grade stenosis in the left mid superficial femoral artery. Distal left SFA stent is patent. There is high-grade stenosis involving the posterior tibial artery which is a dominant blood supply to the left foot. An up and over vascular sheath was placed. Balloon angioplasty of the posterior tibial artery was performed using a 2.5 mm balloon. A subsequent stenting stent was placed in the mid left superficial femoral artery. This resulted in improved morphology and flow through both vessels. Angiography of the access site demonstrates a mid common femoral puncture. A mynx device was deployed to achieve hemostasis. Sterile dressings were applied. Total fluoroscopy time: 16.7 MIN Dose area product: Gycm2 The procedures performed under conscious sedation including continuous cardiopulmonary monitoring via a dedicated sedation nurse. [id number] sedation time:120 MINUTES Impression: High-grade stenosis, left posterior tibial artery, and mid left SFA status post balloon angioplasty and stenting stent placement respectively
== END 2018-06-28 17:57 | disposition home or self-care (01) | DRG 853 ==
LOC: ER 18:02 → 1 WEST ICU 22:06 → 6 SOUTH 06-23 15:02
PROVIDERS: ADMIT Family Medicine; ATTEND Family Medicine
PROC: 047S3ZZ Dilation of Left Posterior Tibial Artery, Percutaneous Approach (ICD-10-PCS; principal; 2018-06-27)
PROC: 047L3DZ Dilation of Left Femoral Artery with Intraluminal Device, Percutaneous Approach (ICD-10-PCS; 2018-06-27)
PROC: B41G1ZZ Fluoroscopy of Left Lower Extremity Arteries using Low Osmolar Contrast (ICD-10-PCS; 2018-06-27)
PROC: B41C1ZZ Fluoroscopy of Pelvic Arteries using Low Osmolar Contrast (ICD-10-PCS; 2018-06-27)
DX: A41.9 Sepsis, unspecified organism (principal); G93.41 Metabolic encephalopathy; I50.23 Acute on chronic systolic (congestive) heart failure; L03.115 Cellulitis of right lower limb; L03.116 Cellulitis of left lower limb; E44.0 Moderate protein-calorie malnutrition; I13.0 Hypertensive heart and chronic kidney disease with heart failure and stage 1 through stage 4 chronic kidney disease, or unspecified chronic kidney disease; N17.9 Acute kidney failure, unspecified; I42.0 Dilated cardiomyopathy; I24.8 Other forms of acute ischemic heart disease; E11.42 Type 2 diabetes mellitus with diabetic polyneuropathy; E11.51 Type 2 diabetes mellitus with diabetic peripheral angiopathy without gangrene; E11.65 Type 2 diabetes mellitus with hyperglycemia; E11.22 Type 2 diabetes mellitus with diabetic chronic kidney disease; E87.5 Hyperkalemia; E78.5 Hyperlipidemia, unspecified; B35.1 Tinea unguium; M19.90 Unspecified osteoarthritis, unspecified site; E78.00 Pure hypercholesterolemia, unspecified; I48.0 Paroxysmal atrial fibrillation; I48.2 Chronic atrial fibrillation; D64.9 Anemia, unspecified; I70.202 Unspecified atherosclerosis of native arteries of extremities, left leg; N18.3 Chronic kidney disease, stage 3 (moderate); N40.0 Benign prostatic hyperplasia without lower urinary tract symptoms; Z95.810 Presence of automatic (implantable) cardiac defibrillator; Z83.3 Family history of diabetes mellitus; Z86.718 Personal history of other venous thrombosis and embolism; Z89.412 Acquired absence of left great toe; Z89.422 Acquired absence of other left toe(s); Z79.01 Long term (current) use of anticoagulants; Z79.899 Other long term (current) drug therapy; Z68.24 Body mass index [BMI] 24.0-24.9, adult; Z82.49 Family history of ischemic heart disease and other diseases of the circulatory system; Z95.820 Peripheral vascular angioplasty status with implants and grafts
CPT/HCPCS: 36415; 37226; 37228; 70450; 71045; 75625; 75710; 76937; 80048; 80053; 81001; 82962; 83036; 83605; 83880; 84484; 85007; 85025; 85027; 85610; 85730; 87040; 87641; 87804; 93005; 93306; 96361; 96365; 96367; 99152; 99153; C1725; C1760; C1769; C1892; C1894; G0269; J1644; J1650; J1815; J2248; J2250; J2543; J3010; J3370; J7030; J7040; Q9967; 97110; 97116; 97530; 97535; 99285-25